=== PATIENT | female | born 1950 | race Caucasian/White ===

== ENCOUNTER 2020-05-14 12:20 | Outpatient (CLI) | payer MEDICARE, OTHER, SELFPAY ==
--- NOTE | ~2020-05-14 | XR_ITS ---
EXAMINATION: XR lumbar spine 2-3V DATE: 05/14/2020 12:57 INDICATION: Low back pain. TECHNIQUE: 3 views of lumbar spine were obtained. COMPARISON: Lumbar spine radiographs 01/17/2006 FINDINGS: There is 7 degrees levocurvature of lumbar spine. There is 3 mm retrolisthesis of L3 on L4 and 3 mm anterolisthesis of L4 on L5. Vertebral body heights are normal. There is mildly decreased di sc height at L1-L2 and severely decreased disc height from L2-L3 through L4-L5. There is multilevel s evere facet joint osteoarthritis. IMPRESSION: 1. Severe lumbar spondylosis, worsened from 01/17/2006. Reviewed, dictated and finalized at location A.
== END 2020-05-14 12:21 | disposition home or self-care (01) ==
PROVIDERS: PCP Family Medicine; Visit Provider Physician Assistant
DX: M54.9 Dorsalgia, unspecified (principal); M47.816 Spondylosis without myelopathy or radiculopathy, lumbar region
CPT/HCPCS: 72100

== ENCOUNTER 2020-08-02 08:44 | Outpatient (CLI) | payer MEDICARE, OTHER, SELFPAY ==
--- NOTE | ~2020-08-02 | MM_ITS ---
EXAMINATION: MM screening [facility] BI w franca HISTORY: Screening TECHNIQUE: Craniocaudal and mediolateral oblique 3-D tomosynthesis images were obtained and synthetic 2-D images were generated. CAD analysis was submitted and interpreted. COMPARISON: Comparison to multiple prior studies sequentially, with oldest reviewed study dated 05/13. BREAST PARENCHYMAL COMPOSITION: There are scattered areas of fibroglandular density. FINDINGS: There is a new cluster of calcifications in the upper outer quadrant of the left breast. Th e right breast is stable without evidence for malignancy. IMPRESSION: 1. Cluster of nonspecific upper outer quadrant of the left breast. 2. Magnification views are recommended. BI-RADS Category 0: Incomplete: Needs additional imaging evaluation. Reviewed, dictated and finalized at location A. SHAPER HAND
== END 2020-08-02 08:45 | disposition home or self-care (01) ==
LOC: ANHIMG 08:46
PROVIDERS: PCP Family Medicine; Visit Provider Family Medicine
DX: Z12.31 Encounter for screening mammogram for malignant neoplasm of breast (principal); R92.8 Other abnormal and inconclusive findings on diagnostic imaging of breast
CPT/HCPCS: 77063; 77067

== ENCOUNTER 2020-08-05 10:35 | Outpatient (CLI) | payer MEDICARE, OTHER, SELFPAY ==
--- NOTE | ~2020-08-05 | XR_ITS ---
XR chest 2V DATE: 08/05/2020 11:01 INDICATION: Cough. Hypertension. TECHNIQUE: PA and lateral views COMPARISON: 03/19/2019 PA and lateral chest FINDINGS: Normal heart size. Mild aortic unfolding. No hilar or mediastinal enlargement. No pulmonary infiltrate or consolidation, pleural effusion or pulmonary vascular congestion or pneumo thorax. There is mild dextro scoliosis of the thoracic spine. Osteopenia. IMPRESSION: No active cardiopulmonary disease Reviewed, dictated and finalized at location A. BERRY SORTER
== END 2020-08-05 10:36 | disposition home or self-care (01) ==
PROVIDERS: PCP Family Medicine; Visit Provider Family Medicine
DX: R05 Cough (principal); I10 Essential (primary) hypertension
CPT/HCPCS: 71046

== ENCOUNTER 2020-09-06 11:57 | Outpatient (CLI) | payer MEDICARE, OTHER, SELFPAY ==
--- NOTE | ~2020-09-06 | MM_ITS ---
EXAMINATION: MM diagnostic mammo unilat LT HISTORY: Follow-up left breast calcifications TECHNIQUE: Additional 3-D tomosynthesis images of the left breast were performed and synthetic 2-D im ages were generated. CAD analysis was submitted and interpreted. COMPARISON: Comparison to multiple prior studies sequentially, with oldest reviewed study dated 05/26. BREAST PARENCHYMAL COMPOSITION: Breast composed of scattered areas of fibroglandular density. FINDINGS: There is a cluster of indeterminate calcifications in the upper outer quadrant of the left breast. There are no suspicious masses or architectural distortion. IMPRESSION: 1. Clustered indeterminate left breast calcifications, upper outer quadrant. 2. Stereotactic left breast biopsy recommended. BI-RADS category 4, suspicious findings. Reviewed, dictated and finalized at location A. RONMENTAL SYSTEMS COORDINATOR
== END 2020-09-06 11:58 | disposition home or self-care (01) ==
LOC: ANHIMG 11:58
PROVIDERS: PCP Family Medicine; Visit Provider Family Medicine
DX: R92.8 Other abnormal and inconclusive findings on diagnostic imaging of breast (principal)
CPT/HCPCS: 77065

== ENCOUNTER 2020-09-14 11:15 | Outpatient (NON) | payer MEDICARE, OTHER, SELFPAY ==
[2020-09-14 22:34] LABS: SARS-CoV-2 RNA PCR Negative
== END 2020-09-14 11:16 ==
LOC: ANHCOVIDDT 11:16
PROVIDERS: PCP Family Medicine; Visit Provider Physician Assistant
DX: R05 Cough (principal); Z20.822 Contact with and (suspected) exposure to COVID-19
CPT/HCPCS: C9803; U0003; U0005

== ENCOUNTER 2020-09-21 09:59 | Outpatient (CLI) | payer MEDICARE, OTHER, SELFPAY ==
--- NOTE | ~2020-09-21 | MM_ITS ---
EXAMINATION: MM stereotactic specimen LT, MM post biopsy diagnostic LT, MM stereotactic bx LT DATE: Kaleb Warner M.D. INDICATION: Abnormal mammogram with calcifications in the left breast. Stereotactic core biopsy is r equested evaluate for malignancy.] TECHNIQUE AND FINDINGS: The risks and potential benefits of the procedure were discussed with the patient and written informe d consent was obtained. The patient was placed in the prone position clustered at the table with the left breast in lateral compression, and the area of interest was localized and targeted utilizing di gital imaging with stereotaxis. After sterile preparation of the skin, 1% lidocaine was utilized for local anesthesia at the skin pun cture site and 1% lidocaine with epinephrine was utilized for deeper local anesthesia/is about the bi opsy site. A 9G [employer] vacuum assisted biopsy needle was advanced to the level of the calcification o f interest from a lateral approach utilizing stereotactic guidance and a total of 6 tissue core biops ies were obtained. A specimen radiograph demonstrates that the calcifications of interest are included within the tissue cores. A tissue marker clip was then placed at the biopsy site. The needle was removed and hemosta sis was achieved. The patient tolerated the procedure well and there is no evidence of significant i mmediate complication. The patient was given verbal as well as written postprocedural instructions p rior to discharge from the department. Tissue cores were submitted to surgical pathology for histolo gic analysis. A 2-view left unilateral digital mammogram was obtained post procedure and this demonstrates that the tissue marker clip is in expected position. IMPRESSION: 1. Successful stereotactic biopsy of calcifications in the upper outer quadrant of the left breast, followed by tissue marker clip placement. Please refer to pathology report for histologic analysis. Reviewed, dictated and finalized at location A. TH INSURANCE ASSESSOR IMPRESSION: 1. Successful stereotactic biopsy of calcifications in the upper outer quadran t of the left breast, followed by tissue marker clip placement. Please refer t o pathology report for histologic analysis. IMPRESSION: 1. Successful stereotactic biopsy of calcifications in the upper outer quadran t of the left breast, followed by tissue marker clip placement. Please refer t o pathology report for histologic analysis.
== END 2020-09-21 10:00 | disposition home or self-care (01) ==
PROVIDERS: Family Provider Family Medicine; PCP Family Medicine; Visit Provider Surgery
DX: R92.8 Other abnormal and inconclusive findings on diagnostic imaging of breast (principal); C50.412 Malignant neoplasm of upper-outer quadrant of left female breast
CPT/HCPCS: 19081; 77065; 88305; 88342; A4648

== ENCOUNTER → 2020-10-16 06:32 | Outpatient (CLI) | payer MEDICARE, OTHER, SELFPAY ==
[2020-10-16 19:10] LABS: SARS-CoV-2 RNA PCR Negative
== END ==
PROVIDERS: PCP Family Medicine; Visit Provider Surgery
DX: Z01.812 Encounter for preprocedural laboratory examination (principal); Z20.822 Contact with and (suspected) exposure to COVID-19
CPT/HCPCS: C9803; U0003; U0005

== ENCOUNTER 2020-10-16 09:50 | Outpatient (CLI) | payer MEDICARE, OTHER, SELFPAY ==
--- NOTE | 2020-10-16 10:29 | ECG_ITS ---
Measurements Intervals [place] Rate: 58 P: 25 ND: 187 QRS: -7 QRSD: 92 T: 18 QT: 436 QTc: 430 Interpretive Statements SINUS BRADYCARDIA ATRIAL PREMATURE COMPLEXES DELAYED PRECORDIAL R/S TRANSITION BASELINE ARTIFACT- V6 BORDERLINE ECG Electronically Signed On 10-16-2020 14:43:25 LOCAL HAZMAT DRIVER by Dalton Turner D.O.
== END 2020-10-16 09:51 | disposition home or self-care (01) ==
PROVIDERS: PCP Family Medicine; Visit Provider Surgery
DX: Z01.818 Encounter for other preprocedural examination (principal); D05.12 Intraductal carcinoma in situ of left breast; I10 Essential (primary) hypertension; R00.1 Bradycardia, unspecified
CPT/HCPCS: 36415; 86850; 86900; 86901; 93005; C9803; U0003; U0005

== ENCOUNTER 2020-10-20 00:44 | Day surgery (SDC) | payer MEDICARE, OTHER, SELFPAY ==
[2020-10-14 08:48] VITALS: BMI 29.6
--- NOTE | 2020-10-19 11:03 | WPDANESEPPF ---
Anes - Initial Pre Proc Eval Procedure: Operation Date: 10/20/20 09:00 Proposed Procedures p Left Simple Mastectomy With [place] Lymph Node Injection And Biopsy - Pierre Haji DO Date/Time: 10/19/20 11:03 Surgeon: Pierre Haji DO Pre Op Diagnosis: left breast DCIS Patient Data Age: 70 Gender: F Height: 1.61 m Weight: 77.15 kg Allergies Allergy/AdvReac Type Severity Reaction Status Date / Time Penicillins Allergy Unknown SWELLING Verified 10/20/20 07:26 AND ITCHING Sulfa (Sulfonamide Allergy Unknown Unknown Verified 10/20/20 07:26 Antibiotics) Home Medications Medication Instructions Recorded Confirmed Type fluticasone propionate 50 2 spray NASAL DAILY #9.9 ml 04/08/20 10/20/20 Rx mcg/actuation nasal spray,suspension aspirin 81 mg tablet,delayed 81 mg PO QPM 05/12/20 10/20/20 History release ezetimibe 10 mg-simvastatin 40 mg 1 tablet PO QPM 05/12/20 10/20/20 History tablet fexofenadine 180 mg tablet 180 mg PO DAILY 05/12/20 10/20/20 History metoprolol tartrate 50 mg tablet 50 mg PO Q12H 05/12/20 10/20/20 History cholecalciferol (vitamin D3) 100 100 mcg PO DAILY 09/16/20 10/20/20 History mcg (4,000 unit) capsule levothyroxine 125 mcg tablet 125 mcg PO DAILY tablet 09/16/20 10/20/20 History zinc 50 mg tablet 50 mg PO DAILY 09/16/20 10/20/20 History omeprazole 20 mg capsule,delayed 20 mg PO DAILY #180 cap 10/11/20 10/20/20 Rx release Lactobacillus acidophilus 10,000 mmu cells PO QPM 10/14/20 10/20/20 History [Probiotic] calcium citrate-vitamin D3 1 tablet PO BID 10/14/20 10/20/20 History [Citracal plus D] trazodone 50 mg PO HS 10/14/20 10/20/20 History Patient hx anesthesia problems: none Family hx anesthesia problems: none PMFSH Past Medical History Medical History (Updated 10/19/20 @ 11:04 by Driss Jerez DO) Breast cancer Colon polyp Coronary arteriosclerosis Discoid lupus Hiatal hernia HLD (hyperlipidemia) Hypertension Hypothyroidism Normal colonoscopy (~2014) JAYSON (obstructive sleep apnea) CPAP Osteopenia Prediabetes Surgical History Surgical History H/O: hysterectomy History of back surgery History of cardiac cath History of excision of mass benign tumor, groin History of hemorrhoidectomy History of tonsillectomy History of tubal ligation Family History Family History Father , age 65 Cancer Mother , age 59 Carcinoma of colon Grandparent Carcinoma of colon Cerebrovascular accident Acute myocardial infarction Sibling Acute myocardial infarction Other Diabetes mellitus Family history of coronary artery disease Family history of malignant neoplasm Hypertension Social History Social History Smoking status: Never smoker Second hand tobacco smoke exposure: No Alcohol intake: current Drinks per week: 3 Living arrangements: with family Spiritual care concerns: No Anes - Eval Final PreProcedure Day of Procedure 10/19/20 11:03 Patient weight: overweight Heart: regular rate and rhythm Lungs: clear to auscultation and normal air movement Airway: Mallampati scale class II Neurological: alert and oriented Last oral intake: >/= 8 hours ASA classification: III Emergent: no Anesthetic plan: proceed Anesthesia type and monitoring: general ETT and standard monitoring Informed Consent: The patient's anesthetic plan and its attendant risks and benefits were discussed with the patient/family/POA. Questions were solicited and answers provided to the satisfaction of the patient/family/POA.
[2020-10-20] VITALS (12 sets, daily range): BP systolic 114–155; BP diastolic 61–97; PULSE 56–86; RESP 10–20; TEMP 36.3–37.1; O2SAT 96–100; BMI 30.4
--- NOTE | ~2020-10-20 | NM_ITS ---
EXAMINATION: NM sentinel node inject only INDICATION: Left breast cancer TECHNIQUE: 1.001 mCi Tc 99m Lymphoseek were injected in 4 aliquots in the upper outer quadrant of the breast near the areola. No images were obtained. IMPRESSION: 1. Status post left breast sentinel lymph node radiopharmaceutical injection. Please refer to procedu re note for full details. Reviewed, dictated and finalized at location A. OMER SUPPORT MANAGER IMPRESSION: 1. Status post left breast sentinel lymph node radiopharmaceutical injection. P lease refer to procedure note for full details.
[2020-10-20] MEDS: LACTATED RINGERS 1,000 ML 30 ML IV CONT ×2 (08:49→11:50)
--- NOTE | 2020-10-20 09:05 | PM.IMHP ---
H&P: HPI History of Present Illness Date/Time: 10/20/20 09:05 Chief Complaint: left breast DCIS Narrative: Randa Chamberlain is a 70 year old female who presents for left mastectomy. She was recently found to have DCIS on a stereotactic biopsy. She initially chose to proceed wit lumpectomy, but now has decided she wants to proceed with mastectomy. Review of Systems Review of Systems: All systems reviewed & are unremarkable except as noted in HPI and below Constitutional: Constitutional: Denies chills, Denies fever(s), Denies headache(s) and Denies weight loss Eyes: Eyes: Denies change in vision ENT: Denies dizziness, Denies headache(s), Denies neck mass and Denies throat swelling Cardiovascular: Cardiovascular: Denies chest pain, Denies lightheadedness and Denies dyspnea Respiratory: Respiratory: Denies cough, Denies dyspnea and Denies wheezing Gastrointestinal: Gastrointestinal: Denies abdominal pain, Denies change in bowel habits, Denies nausea and Denies vomiting Genitourinary: Genitourinary: Denies hematuria and Denies dysuria Musculoskeletal: Musculoskeletal: Reports as per HPI Integumentary/Breasts: Skin/Breast: Reports as per HPI Neurologic: Denies dizziness and Denies headache(s) Allergic/Immunologic: Allergic/Immunologic: Denies throat swelling and Denies wheezing PMFSH Past Medical History Medical History Breast cancer Colon polyp Coronary arteriosclerosis Discoid lupus Hiatal hernia HLD (hyperlipidemia) Hypertension Hypothyroidism Normal colonoscopy (~2014) JAYSON (obstructive sleep apnea) CPAP Osteopenia Prediabetes Surgical History Surgical History H/O: hysterectomy History of back surgery History of cardiac cath History of excision of mass benign tumor, groin History of hemorrhoidectomy History of tonsillectomy History of tubal ligation Family History Family History Father , age 65 Cancer Mother , age 59 Carcinoma of colon Grandparent Carcinoma of colon Cerebrovascular accident Acute myocardial infarction Sibling Acute myocardial infarction Other Diabetes mellitus Family history of coronary artery disease Family history of malignant neoplasm Hypertension Social History Social History Smoking status: Never smoker Second hand tobacco smoke exposure: No Alcohol intake: current Drinks per week: 3 Living arrangements: with family Spiritual care concerns: No Meds Home Medications and Allergies Home Medications Medication Instructions Recorded Confirmed Type fluticasone propionate 50 2 spray NASAL DAILY #9.9 ml 04/08/20 10/20/20 Rx mcg/actuation nasal spray,suspension aspirin 81 mg tablet,delayed 81 mg PO QPM 05/12/20 10/20/20 History release ezetimibe 10 mg-simvastatin 40 mg 1 tablet PO QPM 05/12/20 10/20/20 History tablet fexofenadine 180 mg tablet 180 mg PO DAILY 05/12/20 10/20/20 History metoprolol tartrate 50 mg tablet 50 mg PO Q12H 05/12/20 10/20/20 History cholecalciferol (vitamin D3) 100 100 mcg PO DAILY 09/16/20 10/20/20 History mcg (4,000 unit) capsule levothyroxine 125 mcg tablet 125 mcg PO DAILY tablet 09/16/20 10/20/20 History zinc 50 mg tablet 50 mg PO DAILY 09/16/20 10/20/20 History omeprazole 20 mg capsule,delayed 20 mg PO DAILY #180 cap 10/11/20 10/20/20 Rx release Lactobacillus acidophilus 10,000 mmu cells PO QPM 10/14/20 10/20/20 History [Probiotic] calcium citrate-vitamin D3 1 tablet PO BID 10/14/20 10/20/20 History [Citracal plus D] trazodone 50 mg PO HS 10/14/20 10/20/20 History Allergies Allergy/AdvReac Type Severity Reaction Status Date / Time Penicillins Allergy Unknown SWELLING Verified 10/20/20 07:26 AND ITCHING Sulfa (Sulfonamide All
--- NOTE | 2020-10-20 09:09 | WPDHPUPDATE1 ---
History and Physical Update Update Date/Time: 10/20/20 09:09 History and Physical has been reviewed, including an updated exam of the patient. There are NO changes in the patient's condition. Risks, benefits, and alternatives have been discussed and questions answered. Patient agrees to proceed with procedure.
[2020-10-20] MEDS: CLINDAMYCIN 900 MG/D5W 50 ML 900 MG/50 ML PIGGYBACK 50 MG IVPB (09:37)
[2020-10-20] MEDS: ISOSULFAN BLUE 1% INJ 5 ML VIAL 4 ML SUB-Q (09:50)
--- NOTE | 2020-10-20 10:24 | SUR.OPER ---
sentinal lymph node #1 and #2 to pathology fresh/ #1 out 1017 per [facility] PCT and received per Karolyn in Pathology. #2 out 1023 per [facility] PCT and received per Karolyn in Pathology.
--- NOTE | 2020-10-20 10:53 | SUR.OPER ---
left breast out of [place] 1051 per [facility] PCT sent fresh received in pathology per Karolyn 1054
--- NOTE | 2020-10-20 11:44 | PM.PROC ---
Procedure Note - Detailed Date of procedure: 10/20/20 Pre-op diagnosis: left breast DCIS Post-op diagnosis: same Procedure performed: 1. Left simple mastectomy 2. Left axillary sentinel lymph node biopsy Description of procedure: procedure as well as risks, benefits, and alternatives were discussed with the patient. Written consent was obtained and placed in chart prior to procedure. Patient was brought back to surgical suite. She was placed supine on operating table. Time-out was done to confirm patient and procedure. She was then intubated by the Anesthesia Department. Isosulfan blue was infiltrated locally around the nipple areola complex. The left breast was massaged for several minutes. The left breast and axillary area was then prepped and draped in sterile fashion using chlorhexidine prep. 0.5% bupivacaine with epinephrine was infiltrated locally around the left breast. The elliptical incision angled towards the left axilla was carefully marked out along with the margins of the breast tissue around the skin. I then used the gamma probe to identify the axillary lymph nodes. I made the axillary incision along the marked area using a 10 blade scalpel. I then carefully dissected into the axillary contents using electrocautery and blunt dissection with a hemostat. I identified 2 sentinel lymph nodes. The 1st lymph node was carefully isolated and removed using electrocautery. There was still some residual uptake with the gamma probe after removing the 1st lymph node, therefore the 2nd lymph node was removed in a similar fashion. After removing both of these lymph nodes, there was no measurable uptake using the gamma probe within the axillary contents remaining. The incision was then carried out along the markings using 10 blade scalpel. Electrocautery was used for hemostasis. The superior skin flap was initially created using careful electrocautery. This was carried out all the way up to the level of the 2nd rib until the pectoral fascia was encountered. I then carried out the inferior skin flap in a similar fashion using electrocautery down to the inframammary fold and to the level of the pectoral fascia. I then continued along these margins medially until I reached the lateral edge of the sternum. He also carried out this incision laterally to the axillary tail of the breast tissue. The breast tissue was then carefully dissected off of the pectoral muscle using electrocautery. The perforating vessels were ligated along the way using electrocautery. The breast tissue was completely excised from the left chest wall. The breast was then marked for orientation using a short suture superior and long suture lateral. This was then sent to the lab for pathology. The wound bed was then inspected and irrigated with sterile saline. Hemostasis was achieved with electrocautery. The 15 round Artur drain was then placed through a counter incision in the left lateral chest and the drain was secured in place using a 3 0 nylon drain stitch. The deep dermis was then reapproximated using 3 0 Vicryl simple interrupted sutures. The skin was then approximated using a 4 Monocryl running subcuticular suture. Exofin glue was then applied on top. Telfa gauze, fluff gauze, and a surgical bra were then applied. The patient was then awakened from anesthesia, extubated, and transferred to recovery. Anesthesia: GLMA and local ( 0.5% bupivacaine with epinephrine) Surgeon: Pierre Haji DO Estimated blood loss (mL): 50 Drains: Yes ( 15 round Artur) Pathology: yes ( left breast marked with short suture superior and long suture lateral, sentinel lymph node x2) Complications: No immediate complications Condition: stable Disposition: observation Findings: This is a 70-year-old woman who presented with a recent finding of left breast DCIS. She had an abnormal mammogram and then subsequently underwent stereotactic left breast biopsy. The pathology showed evidence of
--- NOTE | 2020-10-20 12:24 | SUR.PHASEI ---
[id number] sbar faxed floor notified
[2020-10-20] MEDS: fentaNYL CITRATE INJ (*CRX) 100 MCG/2 ML VIAL 25 MCG IV PUSH ×2 (12:46→12:49)
--- NOTE | 2020-10-20 13:20 | PC.NURSE ---
Patient to room 341 via hospital stretcher. Patient oriented to room and policies. Belongings with patient. Visitor in room with patient at this time.
[2020-10-20] MEDS: ASPIRIN 81 MG ENTERIC TABLET PO (17:16)
[2020-10-20] MEDS: LACTATED RINGERS 1,000 ML 100 ML IV CONT (17:16)
[2020-10-20] MEDS: traZODone HCL 50 MG TABLET PO (20:02)
[2020-10-20] MEDS: EZETIMIBE 10 MG TABLET PO (20:03)
[2020-10-20] MEDS: HYDROcodone/acetaminophen (*CRX) 7.5-325 MG TABLET 1 TAB PO (20:03)
[2020-10-20] MEDS: METOPROLOL TARTRATE 50 MG TAB PO (20:03)
[2020-10-20] MEDS: SIMVASTATIN 20 MG TABLET 40 MG PO (20:03)
[2020-10-21] MEDS: LEVOTHYROXINE SODIUM 125 MCG TABLET PO (05:38)
[2020-10-21 06:27] VITALS: BP 131/78; PULSE 55; RESP 16; TEMP 36.6; O2SAT 100
[2020-10-21 08:00] VITALS: PULSE 55; RESP 16; O2SAT 100
[2020-10-21 08:04] VITALS: PULSE 55
[2020-10-21] MEDS: PANTOPRAZOLE 40 MG TABLET PO (08:04)
[2020-10-21] MEDS: FLUTICASONE PROPIONATE 0.05% NA SPR 16 GM BTL (*BKC) 2 SPRAY NASAL (08:04)
[2020-10-21] MEDS: METOPROLOL TARTRATE 50 MG TAB PO (08:04)
[2020-10-21] MEDS: LORATADINE 10 MG TABLET PO (08:04)
--- NOTE | 2020-10-21 09:52 | PM.DS ---
DS: Admitting Diagnosis Admitting Diagnosis Admitting Diagnosis: Left breast DCIS DS: Discharge Diagnosis Discharge Diagnosis (1) Ductal carcinoma in situ (DCIS) of left breast: Code(s): D05.12 - Intraductal carcinoma in situ of left breast Status: Acute DS: Summary Hospital Course Reason for hospitalization: Postop recovery after left mastectomy with SLN biopsy Hospital Course: This is a 70-year-old woman who presented for left mastectomy. She had a recent abnormal mammogram with microcalcifications and subsequent stereotactic biopsy showed evidence of DCIS grade 2 with comedonecrosis. After thorough discussions about treatment options, patient elected to proceed with mastectomy. On 10/20/2020 she underwent left simple mastectomy with sentinel lymph node biopsy. Surgery was uncomplicated and she was placed on the hospital for outpatient extended recovery. Her pain was controlled postoperatively and the drain was carefully monitored. On postop day 1 she was doing well and pain was controlled. She had minimal serosanguineous output from the drain and her incision had no bleeding or disruption. She was discharged on postop day 1. Status at Discharge Functional status at discharge: independent ambulation Overall status at discharge: patient is progressing back to baseline Time Spent with Patient Time attestation: Total time spent providing and/or coordinating discharge services: Time spent: Less than 30 minutes Exam Chest: Other: Dressing dry. REDD drain with minimal serosanguineous output. DS: Data Data Completed and Pending Pending studies at discharge: Pending at discharge 10/20/20 10:15 Surgical [PTH] Routine Surgical [PTH] Routine Surgical [PTH] Routine Discharge Plan Discharge Patient Disposition: Home, Self-Care Discharge Instructions: Discharge Instruction Sheet for [place] Node Biopsy (Possible Axillary Node Dissection) Patients [facility] [address] [address] [address] [place] [address] 1.) Keep wound clean and dry. If drains are present, will need to sponge bathe or shower facing away from shower head until drain(s) are removed. This drain will be removed during your follow up visit. 2.) No vigorous activity or carrying with affected arm. May use arm to comb hair, eat, write, etc. 3.) Do not apply creams or ointments unless directed to do so by your surgeon. 4.) Ambulate (walk) for exercise at least 3 times per day. 5.) Contact your surgeon?s office if you have excessive and persistent pain, swelling, bleeding, or drainage through the dressing, redness or red streaks around the wound, heat or warmth at the site of the incision, or fever of more then 101 degrees. 6.) Resume all home medications. Patient to be given pain medication prescription prior to discharge if needed. 7.) Please be aware that the surgeon will likely inject a ?blue dye? to identify the sentinel lymph node during the procedure. This dye may turn your urine blue or green for 24 hours and skin a blue color that will fade over a period of time (several weeks). This is expected and of no concern. 8.) Please allow 5 business days for biopsy results. Dr. Haji?s office will call with results. 9.) Nutrition: Start out by drinking fluids and increase your diet as tolerated. If you experience nausea, try dry toast and crackers and 7-UP. If nausea or vomiting persists, contact your surgeon?s office. 10.) No alcohol while taking your narcotic pain medication. No driving for 24 hours or if you are taking your narcotic pain medication. Rev. 10/17 Patient Instructions: Mastectomy (DC) Follow-up/Referrals: Pierre Haji, [Physician] - (Call office on Sunday to report drain output. Will schedule a f/u appt once drainage has decreased to a safe level for removal.) Discharge Medications: New
--- NOTE | 2020-10-21 12:07 | WPDANESPN ---
Anes - Prog Note Post-Op Date/Time: 10/21/20 12:07 Cardiovascular status: normal Respiratory status: normal Airway patency: baseline Mental status: baseline Post-Op hydration status: normal Vital Signs: Last Vital Signs Temp 36.6 C 10/21/20 06:27 Pulse 55 L 10/21/20 08:04 Resp 16 10/21/20 06:27 BP 131/78 10/21/20 06:27 Pulse Ox 100 10/21/20 06:27 Pain Score (VAS): 0/10. Patient resting in bed at time of assessment, appears comfortable. Support person at bedside. I/O: Intake & Output 10/20/20 10/21/20 10/21/20 23:59 07:59 15:59 Intake Total 960 1000 240 Output Total 965 220 800 Balance -5 780 -560 Post-procedural complaints: none Patient Feedback: Patient satisfied with anesthetic care.
[2020-10-21] MEDS: HYDROcodone/acetaminophen (*CRX) 5-325 MG TABLET 1 TAB PO (12:11)
== END 2020-10-21 13:00 | disposition home or self-care (01) ==
LOC: ANHSURGERY 06:54 → ANH3MED 13:27
PROVIDERS: PCP Family Medicine; Visit Provider Surgery
PROC: (CPT 19303; principal; 2020-10-20 09:00)
DX: D05.12 Intraductal carcinoma in situ of left breast (principal); I25.10 Atherosclerotic heart disease of native coronary artery without angina pectoris; I10 Essential (primary) hypertension; E78.5 Hyperlipidemia, unspecified; E03.9 Hypothyroidism, unspecified; R73.03 Prediabetes; G47.33 Obstructive sleep apnea (adult) (pediatric); L93.0 Discoid lupus erythematosus
CPT/HCPCS: 19303; 38525; 38792; 88305; 88307; A9270; A9520; J1100; J2405; J2704; J3010; J7120

== ENCOUNTER → 2020-11-24 06:46 | Outpatient (CLI) | payer MEDICARE, OTHER, SELFPAY ==
[2020-11-24 16:23] LABS: SARS-CoV-2 RNA PCR Negative
== END ==
PROVIDERS: PCP Family Medicine; Visit Provider Family Medicine
DX: Z20.822 Contact with and (suspected) exposure to COVID-19 (principal)
CPT/HCPCS: C9803; U0003; U0005

== ENCOUNTER 2021-03-04 15:09 | Outpatient (CLI) | payer MEDICARE, OTHER, SELFPAY ==
--- NOTE | ~2021-03-04 | XR_ITS ---
XR hip RT min 3V w AP pelvis 03/04/2021 15:35 Indication: Right hip pain Procedure: AP pelvis and 2 views right hip Comparison: No prior studies for comparison. Findings: There is moderate osteoarthritis of the right hip. Mild osteoarthritis of the left hip. Low er lumbar spondylosis partially visualized. Sacral foramen are symmetric. Pelvic rings are intact. Impression: 1: Bilateral osteoarthritis of the hips, right greater than left. Reviewed, dictated and finalized at location A. Impression: 1: Bilateral osteoarthritis of the hips, right greater than left.
== END 2021-03-04 15:10 | disposition home or self-care (01) ==
LOC: ANHIMG 15:16
PROVIDERS: PCP Family Medicine; Visit Provider Physician Assistant
DX: M16.0 Bilateral primary osteoarthritis of hip (principal)
CPT/HCPCS: 73502

== ENCOUNTER 2021-03-29 08:07 | Outpatient (CLI) | payer MEDICARE, OTHER, SELFPAY ==
--- NOTE | ~2021-03-29 | DEXA_ITS ---
Bone Density Report Name: Randa Chamberlain Age: 70 Sex: Female Ethnicity: White Date of : 1950 Indication: monitoring treatment; height loss; cancer; hysterectomy; postmenopausal Referring Provider: Malik Devries Study: Bone densitometry was performed. Exam Date: March 29, 2021 Accession number: [id number] Bone Density: Region BMD T-score Z-score Classification AP Spine (L1, L2) 1.204 2.0 4.1 Normal Femoral Neck (Left) 0.695 -1.4 0.5 Osteopenia Total Hip (Left) 0.918 -0.2 1.4 Normal Total Hip Bilateral Avg 0.930 -0.1 1.5 Normal Femoral Neck (Right) 0.740 -1.0 0.9 Normal Total Hip (Right) 0.941 0.0 1.6 Normal World Health Organization criteria for BMD impression classify patients as: Normal (T-score at or above -1.0), Osteopenia (T-score between -1.0 and -2.5), or Osteoporosis (T-score at or below -2.5). 10-year Fracture Risk: FRAX not reported because: Treated for osteoporosis Previous Exams: Region Exam Age BMD T-score BMD Change BMD Change Date g/cm2 vs Baseline vs Previous Total Hip(Left) 03/29/2021 70 0.918 -0.2 0.040(4.5%)* 0.040(4.5%)* 05/26/2014 64 0.878 -0.5 Total Hip(Right) 03/29/2021 70 0.941 0.0 0.010(1.1%) 0.010(1.1%) 05/26/2014 64 0.930 -0.1 *Denotes significance at 95% confidence level, LSC for Total Hip = 0.027 g/cm2 Clinical Information Provided by Patient: Is being treated for osteoporosis Has used the following medications: Boniva (i.e. ibandronate), HRT (i.e. estrogen/hormone therapy), Vitamin D Has the following medical conditions: Cancer, Hysterectomy Patient maximum height was 64 Menopause Age: 56 No regular weight bearing exercise Does not regularly consume dairy products Drinks caffeinated beverages Onset of menses at age 15 Number of children 2 Impression: The patient has low bone mass, based on the Left Femoral Neck T-score. No significant bone loss was observed. Discussion: PATIENT UNDER TREATMENT WITH NO SIGNIFICANT BMD LOSS SINCE LAST EXAM. In an untreated patient, BMD typically declines with age. A lack of decline or gain is usually a sign that treatment is efficacious and fracture risk is reduced. It is important to ask patients whether they are taking their medications and to encourage continued and appropriate compliance with their osteoporosis therapies to reduce fracture risk. It is also important to review their risk factors and encourage appropriate calcium and vitamin D intakes, exercise, fall prevention and other lifesty
== END 2021-03-29 08:08 | disposition home or self-care (01) ==
PROVIDERS: PCP Family Medicine; Visit Provider Internal Medicine Hematology & Oncology
DX: M81.0 Age-related osteoporosis without current pathological fracture (principal); M85.852 Other specified disorders of bone density and structure, left thigh
CPT/HCPCS: 77080

== ENCOUNTER 2021-03-31 09:43 | Outpatient (CLI) | payer MEDICARE, OTHER, SELFPAY ==
[2021-03-31 10:01] LABS: Basophils Percent Auto 0.4 % (0.2-1.2); Eosinophils Absolute Auto 0.3 K/mm3 (0-0.3); Eosinophils Percent Auto 5.3 % (0-4.4); Hematocrit 38.5 % (37.0-47.0); Hemoglobin 12.3 g/dL (12.0-15.0); Immature Granulocyte Absolute 0.02 K/mm3 (0.00-0.031); Immature Granulocyte Percent A 0.4 % (0-0.5); Lymphocytes Absolute Auto 1.19 K/mm3 (0.9-3.2); Lymphocytes Percent Auto 22.5 % (18.3-44.2); Mean Corpuscular HGB Conc 31.9 g/dl (32-36); Mean Corpuscular Hemoglobin 31.9 pg (26-34); Mean Platelet Volume 9.6 fl (7.4-10.4); Monocytes Absolute Auto 0.5 K/mm3 (0.1-0.6); Monocytes Percent Auto 9.1 % (2.6-8.5); Neutrophils Absolute Auto 3.3 K/mm3 (1.3-6.7); Neutrophils Percent Auto 62.3 % (45.5-73.1); Platelet Count Result 214 k/mm3 (150-375); Red Blood Count 3.85 M/mm3 (4.2-5.4); Red Cell Distribution Width 12.4 % (11.5-14.5); White Blood Count 5.3 K/mm3 (4.5-10.0)
[2021-03-31 10:06] LABS: Blood Urea Nitrogen 17 mg/dL (8-26); Carbon Dioxide 25 mmol/L (22-30); Chloride 104 mmol/L (98-109); Estimated Glomerular Filt Rate > 60; Glucose 126 mg/dL (70-105); Potassium 3.8 mmol/L (3.5-4.9); Sodium 142 mmol/L (138-146)
[2021-03-31 11:54] LABS: Alanine Aminotransferase 22 U/L (4-35); Albumin Level 4.4 g/dL (3.5-5.1); Alkaline Phosphatase 94 U/L (38-126); Anion Gap 9 mmol/L (8-16); Aspartate Amino Transferase 28 U/L (14-36); Bilirubin,Total 0.2 mg/dL (0.2-1.3); Blood Urea Nitrogen 16 mg/dL (7-17); Calcium 9.6 mg/dL (8.4-10.2); Carbon Dioxide 27 mmol/L (22-30); Chloride 102 mmol/L (98-107); Estimated Glomerular Filt Rate > 60; Glucose 122 mg/dL (65-110); Potassium 3.9 mmol/L (3.4-5.0); Sodium 138 mmol/L (137-145)
== END 2021-03-31 09:44 | disposition home or self-care (01) ==
LOC: ANHLAB 09:45
PROVIDERS: PCP Family Medicine; Visit Provider Internal Medicine Hematology & Oncology
DX: D05.12 Intraductal carcinoma in situ of left breast (principal); M81.0 Age-related osteoporosis without current pathological fracture
CPT/HCPCS: 36415; 80048; 80053; 85025

== ENCOUNTER 2021-05-03 10:01 | Outpatient (CLI) | payer MEDICARE, OTHER, SELFPAY ==
--- NOTE | ~2021-05-03 | MM_ITS ---
EXAMINATION: MM screening janette RT w franca HISTORY: Screening mammogram TECHNIQUE: Craniocaudal and mediolateral oblique 3-D tomosynthesis images were obtained and synthetic 2-D images were generated. CAD analysis was submitted and interpreted. COMPARISON: 08/02/2020, 07/31/2019, 05/07/2018 bilateral digital screening mammogram examinations BREAST PARENCHYMAL COMPOSITION: There are scattered areas of fibroglandular density. FINDINGS: Status post left mastectomy September 2019. Minimal benign calcification of the right breast . There is no evidence of suspicious mass, calcification, or architectural distortion to suggest prateek gnancy in either breast. There has been no suspicious interval change. IMPRESSION: 1. No mammographic evidence of malignancy. 2. Recommend routine screening mammography in one year. BI-RADS Category 2: Benign finding(s). Reviewed, dictated and finalized at location A.
== END 2021-05-03 10:02 | disposition home or self-care (01) ==
LOC: ANHIMG 10:03
PROVIDERS: PCP Family Medicine; Visit Provider Internal Medicine Hematology & Oncology
DX: Z12.31 Encounter for screening mammogram for malignant neoplasm of breast (principal)
CPT/HCPCS: 77063; 77067

== ENCOUNTER 2021-06-30 11:16 | Outpatient (CLI) | payer MEDICARE, OTHER, SELFPAY ==
[2021-06-30 11:36] LABS: Basophils Percent Auto 0.2 % (0.2-1.2); Eosinophils Absolute Auto 0.2 K/mm3 (0-0.3); Eosinophils Percent Auto 3.9 % (0-4.4); Hematocrit 40.4 % (37.0-47.0); Hemoglobin 12.9 g/dL (12.0-15.0); Immature Granulocyte Absolute 0.03 K/mm3 (0.00-0.031); Immature Granulocyte Percent A 0.6 % (0-0.5); Lymphocytes Absolute Auto 1.42 K/mm3 (0.9-3.2); Lymphocytes Percent Auto 26.6 % (18.3-44.2); Mean Corpuscular HGB Conc 31.9 g/dl (32-36); Mean Corpuscular Hemoglobin 32.3 pg (26-34); Mean Corpuscular Volume 101.3 fl (80-100); Mean Platelet Volume 9.6 fl (7.4-10.4); Monocytes Absolute Auto 0.6 K/mm3 (0.1-0.6); Monocytes Percent Auto 11.2 % (2.6-8.5); Neutrophils Absolute Auto 3.1 K/mm3 (1.3-6.7); Neutrophils Percent Auto 57.5 % (45.5-73.1); Platelet Count Result 181 k/mm3 (150-375); Red Blood Count 3.99 M/mm3 (4.2-5.4); White Blood Count 5.3 K/mm3 (4.5-10.0)
[2021-06-30 11:40] LABS: Blood Urea Nitrogen 17 mg/dL (8-26); Carbon Dioxide 25 mmol/L (22-30); Chloride 102 mmol/L (98-109); Estimated Glomerular Filt Rate > 60; Glucose 101 mg/dL (70-105); Potassium 4.3 mmol/L (3.5-4.9); Sodium 142 mmol/L (138-146)
[2021-06-30 12:27] LABS: Alanine Aminotransferase 34 U/L (4-35); Albumin Level 4.6 g/dL (3.5-5.1); Alkaline Phosphatase 95 U/L (38-126); Anion Gap 11 mmol/L (8-16); Aspartate Amino Transferase 35 U/L (14-36); Bilirubin,Total 0.5 mg/dL (0.2-1.3); Blood Urea Nitrogen 17 mg/dL (7-17); Carbon Dioxide 26 mmol/L (22-30); Chloride 104 mmol/L (98-107); Estimated Glomerular Filt Rate > 60; Glucose 99 mg/dL (65-110); Potassium 4.4 mmol/L (3.4-5.0); Sodium 141 mmol/L (137-145)
== END 2021-06-30 11:17 | disposition home or self-care (01) ==
PROVIDERS: PCP Family Medicine; Visit Provider Internal Medicine Hematology & Oncology
DX: M81.0 Age-related osteoporosis without current pathological fracture (principal); D05.12 Intraductal carcinoma in situ of left breast
CPT/HCPCS: 36415; 80048; 80053; 85025

== ENCOUNTER 2021-08-08 08:41 | Outpatient (CLI) | payer MEDICARE, OTHER, SELFPAY ==
[2021-08-08 10:04] LABS: Alanine Aminotransferase 39 U/L (4-35); Albumin Level 4.8 g/dL (3.5-5.1); Alkaline Phosphatase 104 U/L (38-126); Anion Gap 12 mmol/L (8-16); Aspartate Amino Transferase 42 U/L (14-36); Bilirubin,Total 0.6 mg/dL (0.2-1.3); Blood Urea Nitrogen 19 mg/dL (7-17); Calcium 9.7 mg/dL (8.4-10.2); Carbon Dioxide 26 mmol/L (22-30); Chloride 103 mmol/L (98-107); Cholesterol 138 mg/dL (0-200); Estimated Glomerular Filt Rate > 60; Glucose 114 mg/dL (65-110); HDL Direct 45 mg/dL; Potassium 4.1 mmol/L (3.4-5.0); Sodium 141 mmol/L (137-145); Triglycerides 112 mg/dL (<150)
[2021-08-08 10:15] LABS: LDL Cholesterol Direct 72 mg/dL
[2021-08-08 10:37] LABS: Vitamin D 25 Hydroxy 75.7 ng/mL
[2021-08-08 10:46] LABS: Hemoglobin A1C 5.6 % (<5.7)
[2021-08-08 11:21] LABS: Free T4 Free Thyroxine Reflex 1.03 ng/dL (0.78-2.19)
[2021-08-08 12:07] LABS: Total Triiodothyronine (T3) 1.56 NG/ML (0.97-1.69)
== END 2021-08-08 08:42 | disposition home or self-care (01) ==
LOC: ANHLAB 08:45
PROVIDERS: PCP Family Medicine; Visit Provider Family Medicine
DX: E55.9 Vitamin D deficiency, unspecified (principal); E03.9 Hypothyroidism, unspecified; E78.2 Mixed hyperlipidemia; R73.9 Hyperglycemia, unspecified
CPT/HCPCS: 36415; 80053; 80061; 82306; 83036; 84439; 84443; 84480

== ENCOUNTER 2021-08-08 09:22 | Outpatient (CLI) | payer MEDICARE, OTHER, SELFPAY ==
--- NOTE | ~2021-08-08 | US_ITS ---
EXAMINATION: US thyroid EXAM DATE: 08/08/2021 10:54 INDICATION: E04.1 - Nontoxic single thyroid nodule. TECHNIQUE: Multiple grayscale and Doppler images of the thyroid were obtained (by a technologist who performed the scan) and subsequently reviewed. Individual nodules and recommendations may be reporte d in accordance with TI-RADS system as designated by the 2017 ACR White Paper TI-RADS committee. Comp tomásson is made to prior examination from 05/07/2018. FINDINGS: The right thyroid lobe measures 3.5 x 1.4 x 1.0 cm, the left thyroid lobe measures 3.7 x 1.2 x 1.1 cm . There is moderately diffusely heterogeneous thyroid echogenicity. Dimensions provided are within no rmal size limits. Expected amount of vascularity. No focal nodule identified within the heterogeneous parenchyma. IMPRESSION: Unremarkable thyroid ultrasound. Reviewed, dictated and finalized at location B. UCT DEVELOPMENT COORDINATOR
--- NOTE | ~2021-08-08 | MR_ITS ---
EXAMINATION: MR abdomen wo/w con DATE: 08/08/2021 10:43 INDICATION: Cyst of pancreas. TECHNIQUE: Magnetic resonance imaging (MRI) of the abdomen was performed without and with 15 mL Multi Mallorie intravenous contrast. Sequences included coronal T2-weighted FS FSE, coronal and axial FS FIEST A, axial T2-weighted FSE, coronal LAVA-flex, axial STIR FSE, axial DWI, axial dual-echo T1-weighted F SPGR, and axial LAVA. Postcontrast sequences included coronal LAVA-flex and a time course of axial LA VA. COMPARISON: CT abdomen 02/25/2005 FINDINGS: There is diffuse hepatic steatosis. There are cysts in the liver measuring up to 6 mm. There is cysti c wall thickening of the gallbladder fundus, consistent with adenomyomatosis. The spleen is normal. T here is a 2.0 cm cystic lesion in the uncinate process of the pancreas. The adrenal glands are normal . There are cysts in the kidneys measuring up to 9.2 cm on the right. There are no dilated loops of b owel. There is a diverticulum of the third portion of the duodenum. There are no pathologically enlar ged lymph nodes. There is no free intraperitoneal fluid. IMPRESSION: 1. 2.0 cm cystic lesion in the uncinate process of the pancreas, new from 02/25/2005. The differential diagnosis includes pseudocyst, intraductal papillary mucinous neoplasm (IPMN), mucinous cystic neopla sm (MCN), serous cystadenoma, and neuroendocrine tumor. Abdomen MRI without and with contrast is clarke mmended in 6 months. 2. Diffuse hepatic steatosis. Reviewed, dictated and finalized at location A. CLE INSPECTOR IMPRESSION: 1. 2.0 cm cystic lesion in the uncinate process of the pancreas, new from 005. The differential diagnosis includes pseudocyst, intraductal papillary muci nous neoplasm (IPMN), mucinous cystic neoplasm (MCN), serous cystadenoma, and n euroendocrine tumor. Abdomen MRI without and with contrast is recommended in 6 months. 2. Diffuse hepatic steatosis.
[2021-08-08 10:12] LABS: Estimated Glomerular Filt Rate > 60
== END 2021-08-08 09:23 | disposition home or self-care (01) ==
LOC: ANHIMG 09:32
PROVIDERS: PCP Family Medicine; Visit Provider Family Medicine
DX: K86.2 Cyst of pancreas (principal); E04.1 Nontoxic single thyroid nodule; K76.0 Fatty (change of) liver, not elsewhere classified
CPT/HCPCS: 36415; 74183; 76536; 80053; 80061; 82306; 83036; 84439; 84443; 84480; A9577

== ENCOUNTER 2021-10-19 10:30 | Outpatient (CLI) | payer MEDICARE, SELFPAY ==
[2021-10-19 10:58] LABS: Basophils Percent Auto 0.4 % (0.2-1.2); Eosinophils Absolute Auto 0.2 K/mm3 (0-0.3); Eosinophils Percent Auto 3.8 % (0-4.4); Hematocrit 42.5 % (37.0-47.0); Hemoglobin 13.4 g/dL (12.0-15.0); Immature Granulocyte Absolute 0.04 K/mm3 (0.00-0.031); Immature Granulocyte Percent A 0.8 % (0-0.5); Lymphocytes Absolute Auto 1.31 K/mm3 (0.9-3.2); Lymphocytes Percent Auto 26.3 % (18.3-44.2); Mean Corpuscular HGB Conc 31.5 g/dl (32-36); Mean Corpuscular Hemoglobin 32.6 pg (26-34); Mean Corpuscular Volume 103.4 fl (80-100); Mean Platelet Volume 9.8 fl (7.4-10.4); Monocytes Absolute Auto 0.5 K/mm3 (0.1-0.6); Monocytes Percent Auto 10.6 % (2.6-8.5); Neutrophils Absolute Auto 2.9 K/mm3 (1.3-6.7); Neutrophils Percent Auto 58.1 % (45.5-73.1); Platelet Count Result 224 k/mm3 (150-375); Red Blood Count 4.11 M/mm3 (4.2-5.4); Red Cell Distribution Width 11.9 % (11.5-14.5)
[2021-10-19 11:01] LABS: Blood Urea Nitrogen 13 mg/dL (8-26); Carbon Dioxide 23 mmol/L (22-30); Chloride 105 mmol/L (98-109); Estimated Glomerular Filt Rate > 60; Glucose 126 mg/dL (70-105); Potassium 4.1 mmol/L (3.5-4.9); Sodium 142 mmol/L (138-146)
[2021-10-19 14:17] LABS: Alanine Aminotransferase 37 U/L (4-35); Albumin Level 4.7 g/dL (3.5-5.1); Alkaline Phosphatase 115 U/L (38-126); Anion Gap 9 mmol/L (8-16); Aspartate Amino Transferase 48 U/L (14-36); Bilirubin,Total 0.4 mg/dL (0.2-1.3); Blood Urea Nitrogen 15 mg/dL (7-17); Calcium 9.2 mg/dL (8.4-10.2); Carbon Dioxide 24 mmol/L (22-30); Chloride 106 mmol/L (98-107); Estimated Glomerular Filt Rate > 60; Glucose 129 mg/dL (65-110); Potassium 4.2 mmol/L (3.4-5.0); Sodium 139 mmol/L (137-145)
== END 2021-10-19 10:31 | disposition home or self-care (01) ==
LOC: ANHLAB 10:40
PROVIDERS: PCP Family Medicine; Visit Provider Internal Medicine Hematology & Oncology
DX: M81.0 Age-related osteoporosis without current pathological fracture (principal)
CPT/HCPCS: 36415; 80053; 85025

== ENCOUNTER 2021-10-26 00:21 | Day surgery (SDC) | payer MEDICARE, SELFPAY ==
[2021-09-01 12:13] VITALS: BMI 29.2
[2021-10-12 13:17] VITALS: BMI 29.2
[2021-10-26 06:40] VITALS: BP 150/72; PULSE 62; RESP 18; TEMP 37; O2SAT 97; BMI 29.7
[2021-10-26] MEDS: LACTATED RINGERS 1,000 ML 150 ML IV CONT (07:00)
--- NOTE | 2021-10-26 07:39 | WPDANESEPPF ---
Anes - Initial Pre Proc Eval Procedure: Operation Date: 10/26/21 08:00 Proposed Procedures p Screening Colonoscopy - Keegan Arnold MD Date/Time: 10/26/21 07:39 Surgeon: Keegan Arnold MD Pre Op Diagnosis: hx of colon polyps Patient Data Age: 71 Gender: F Height: 1.6 m Weight: 76.1 kg Last Vital Signs Temp 98.6 F 10/26/21 06:40 Pulse 62 10/26/21 06:40 Resp 18 10/26/21 06:40 BP 150/72 H 10/26/21 06:40 Pulse Ox 97 10/26/21 06:40 Allergies Allergy/AdvReac Type Severity Reaction Status Date / Time Penicillins Allergy Unknown SWELLING Verified 10/26/21 06:49 AND ITCHING Sulfa (Sulfonamide Allergy Unknown Unknown Verified 10/26/21 06:49 Antibiotics) Home Medications Medication Instructions Recorded Confirmed Type aspirin 81 mg tablet,delayed 81 mg PO QPM 05/12/20 10/26/21 History release ezetimibe 10 mg-simvastatin 40 mg 1 tablet PO QPM 05/12/20 10/26/21 History tablet fexofenadine 180 mg tablet 180 mg PO DAILY 05/12/20 10/26/21 History metoprolol tartrate 50 mg tablet 50 mg PO Q12H 05/12/20 10/26/21 History cholecalciferol (vitamin D3) 100 100 mcg PO DAILY 09/16/20 10/26/21 History mcg (4,000 unit) capsule zinc 50 mg tablet 50 mg PO DAILY 09/16/20 10/26/21 History Probiotic 10,000 mmu cells PO QPM 10/14/20 10/26/21 History trazodone 50 mg PO HS 10/14/20 10/26/21 History tamoxifen 20 mg tablet 20 mg PO DAILY 01/05/21 10/26/21 History levothyroxine 125 mcg tablet 125 mcg PO DAILY #90 tablet 07/20/21 10/26/21 Rx fluticasone propionate 50 2 spray NASAL DAILY #9.9 ml 07/24/21 10/26/21 Rx mcg/actuation nasal spray,suspension glucosamine-chondroitin [Osteo 2 tablet PO TID 09/01/21 10/26/21 History Bi-Flex] meloxicam 15 mg tablet 15 mg PO PRN PRN #90 tablet 09/16/21 10/26/21 Rx omeprazole 20 mg capsule,delayed 20 mg PO DAILY #180 cap 10/09/21 10/26/21 Rx release Patient hx anesthesia problems: none Family hx anesthesia problems: none Results Review: All pre-operative results and documents have been reviewed as part of the pre-operative evaluation. [facility] Past Medical History Medical History (Updated 07/15/21 @ 11:01 by Haley Fairbanks MD) Breast cancer Colon polyp Coronary arteriosclerosis Cystic mass of pancreas Discoid lupus Hiatal hernia HLD (hyperlipidemia) Hypertension Hypothyroidism Normal colonoscopy (~2014) JAYSON (obstructive sleep apnea) CPAP Osteopenia Prediabetes Thyroid nodule Surgical History Surgical History H/O: hysterectomy History of back surgery History of cardiac cath History of excision of mass benign tumor, groin History of hemorrhoidectomy History of mastectomy 10/20/20 Left simple mastectomy, Left axillary sentinel lymph node biopsy History of tonsillectomy History of tubal ligation Family History Family History Father , age 65 Cancer Mother , age 59 Carcinoma of colon Grandparent Carcinoma of colon Cerebrovascular accident Acute myocardial infarction Sibling Acute myocardial infarction Other Diabetes mellitus Family history of coronary artery disease Family history of malignant neoplasm Hypertension Social History Social History (Updated 07/15/21 @ 10:06 by Gretel Keller) Smoking status: Never smoker Second hand tobacco smoke exposure: No Alcohol intake: current Drinks per week: 3 Alcohol use details: occasionally Substance use: never Substance use type: does not use Living arrangements: with family Gender identity (if verbalized by the patient): Female Spiritual care concerns: No Anes - Eval Final PreProcedure Day of Procedure 10/26/21 07:39 Patient weight: overweight Heart: regular rate and rhythm Lungs: clear to auscultation Airway: Mallampati scale class II Neurological: alert and oriented Last
--- NOTE | 2021-10-26 07:53 | PM.HPGS ---
History of Present Illness History of Present Illness Consent: Risks, benefits, and alternatives have been discussed and questions answered. Patient agrees to proceed with procedure. Chief complaint: hx of colon polyps Narrative: Randa Chamberlain is a 71 year old female with colon polyps 3 years ago, mother and grandparent had colon cancer. She is getting colonoscopies every 3 years Review of Systems Constitutional: Constitutional: Denies headache(s) and Denies weakness Eyes: Eyes: Denies blurry vision ENT: Reports Normal hearing present, Denies headache(s) and Denies neck pain Cardiovascular: Cardiovascular: Denies chest pain and Denies dyspnea Respiratory: Respiratory: Denies dyspnea Gastrointestinal: Gastrointestinal: Reports no additional gastrointestinal complaints Genitourinary: Genitourinary: Denies dysuria Musculoskeletal: Musculoskeletal: Denies neck pain Integumentary/Breasts: Skin/Breast: Denies dry skin Neurologic: Reports Normal hearing present, Denies headache(s) and Denies weakness Psychiatric: Psychiatric: Denies anxiety Endocrine: Endocrine: Denies change in body appearance Hematologic/Lymphatic: Hematologic/Lymphatic: Denies easy bleeding Allergic/Immunologic: Allergic/Immunologic: Denies urticaria PMF Past Medical History Medical History (Updated 10/26/21 @ 07:54 by Keegan Arnold MD) Breast cancer Colon polyp Coronary arteriosclerosis Cystic mass of pancreas Discoid lupus Family history of colon cancer in mother Hiatal hernia HLD (hyperlipidemia) Hypertension Hypothyroidism Normal colonoscopy (~2014) JAYSON (obstructive sleep apnea) CPAP Osteopenia Prediabetes Thyroid nodule Surgical History Surgical History H/O: hysterectomy History of back surgery History of cardiac cath History of excision of mass benign tumor, groin History of hemorrhoidectomy History of mastectomy 10/20/20 Left simple mastectomy, Left axillary sentinel lymph node biopsy History of tonsillectomy History of tubal ligation Family History Family History Father , age 65 Cancer Mother , age 59 Carcinoma of colon Grandparent Carcinoma of colon Cerebrovascular accident Acute myocardial infarction Sibling Acute myocardial infarction Other Diabetes mellitus Family history of coronary artery disease Family history of malignant neoplasm Hypertension Social History Social History (Updated 07/15/21 @ 10:06 by Gretel Keller) Smoking status: Never smoker Second hand tobacco smoke exposure: No Alcohol intake: current Drinks per week: 3 Alcohol use details: occasionally Substance use: never Substance use type: does not use Living arrangements: with family Gender identity (if verbalized by the patient): Female Spiritual care concerns: No Meds Home Medications and Allergies Home Medications Medication Instructions Recorded Confirmed Type aspirin 81 mg tablet,delayed 81 mg PO QPM 05/12/20 10/26/21 History release ezetimibe 10 mg-simvastatin 40 mg 1 tablet PO QPM 05/12/20 10/26/21 History tablet fexofenadine 180 mg tablet 180 mg PO DAILY 05/12/20 10/26/21 History metoprolol tartrate 50 mg tablet 50 mg PO Q12H 05/12/20 10/26/21 History cholecalciferol (vitamin D3) 100 100 mcg PO DAILY 09/16/20 10/26/21 History mcg (4,000 unit) capsule zinc 50 mg tablet 50 mg PO DAILY 09/16/20 10/26/21 History Probiotic 10,000 mmu cells PO QPM 10/14/20 10/26/21 History trazodone 50 mg PO HS 10/14/20 10/26/21 History tamoxifen 20 mg tablet 20 mg PO DAILY 01/05/21 10/26/21 History levothyroxine 125 mcg tablet 125 mcg PO DAILY #90 tablet 07/20/21 10/26/21 Rx fluticasone propionate 50 2 spray NASAL DAILY #9.9 ml 07/24/21 10/26/21 Rx mcg/actuation nasal spray,suspension glucosamine-chondroitin [Osteo 2 tablet PO TID 09/01
[2021-10-26 08:09] VITALS: BP 96/61; PULSE 58; RESP 17; O2SAT 95
[2021-10-26 08:19] VITALS: BP 101/58; PULSE 61; RESP 22; O2SAT 95
[2021-10-26 08:29] VITALS: BP 115/69; PULSE 61; RESP 17; O2SAT 96
== END 2021-10-26 08:46 | disposition home or self-care (01) ==
PROVIDERS: PCP Family Medicine; Visit Provider Internal Medicine Gastroenterology
PROC: 0DJD8ZZ Inspection of Lower Intestinal Tract, Via Natural or Artificial Opening Endoscopic (ICD-10-PCS; CPT 45378; principal; 2021-10-26 08:00)
DX: Z12.11 Encounter for screening for malignant neoplasm of colon (principal); D12.3 Benign neoplasm of transverse colon; K57.30 Diverticulosis of large intestine without perforation or abscess without bleeding; K64.8 Other hemorrhoids; K64.4 Residual hemorrhoidal skin tags; Z80.0 Family history of malignant neoplasm of digestive organs; I25.10 Atherosclerotic heart disease of native coronary artery without angina pectoris; E78.5 Hyperlipidemia, unspecified; I10 Essential (primary) hypertension; E03.9 Hypothyroidism, unspecified; G47.33 Obstructive sleep apnea (adult) (pediatric); R73.03 Prediabetes; M85.80 Other specified disorders of bone density and structure, unspecified site; Z79.82 Long term (current) use of aspirin; Z79.810 Long term (current) use of selective estrogen receptor modulators (SERMs); Z85.3 Personal history of malignant neoplasm of breast; Z90.12 Acquired absence of left breast and nipple
CPT/HCPCS: 45380; 88305; J2704; J7120

== ENCOUNTER 2022-02-13 10:27 | Outpatient (CLI) | payer MEDICARE, SELFPAY ==
[2022-02-13 10:42] LABS: Basophils Percent Auto 0.2 % (0.2-1.2); Eosinophils Absolute Auto 0.1 K/mm3 (0-0.3); Eosinophils Percent Auto 1.6 % (0-4.4); Hemoglobin 12.7 g/dL (12.0-15.0); Immature Granulocyte Absolute 0.03 K/mm3 (0.00-0.031); Immature Granulocyte Percent A 0.5 % (0-0.5); Lymphocytes Absolute Auto 1.36 K/mm3 (0.9-3.2); Mean Corpuscular HGB Conc 32.6 g/dl (32-36); Mean Corpuscular Hemoglobin 32.1 pg (26-34); Mean Corpuscular Volume 98.5 fl (80-100); Mean Platelet Volume 9.6 fl (7.4-10.4); Monocytes Absolute Auto 0.6 K/mm3 (0.1-0.6); Monocytes Percent Auto 11.1 % (2.6-8.5); Neutrophils Absolute Auto 3.5 K/mm3 (1.3-6.7); Neutrophils Percent Auto 62.6 % (45.5-73.1); Platelet Count Result 211 k/mm3 (150-375); Red Blood Count 3.96 M/mm3 (4.2-5.4); White Blood Count 5.7 K/mm3 (4.5-10.0)
[2022-02-13 10:45] LABS: Blood Urea Nitrogen 14 mg/dL (8-26); Carbon Dioxide 24 mmol/L (22-30); Chloride 105 mmol/L (98-109); Estimated Glomerular Filt Rate > 60; Glucose 111 mg/dL (70-105); Ionized Calcium (POC) 1.15 mmol/L (1.11-1.31); Sodium 141 mmol/L (138-146)
[2022-02-13 12:31] LABS: Alanine Aminotransferase 33 U/L (6-35); Albumin Level 4.4 g/dL (3.5-5.1); Alkaline Phosphatase 95 U/L (38-126); Anion Gap 9 mmol/L (8-16); Aspartate Amino Transferase 36 U/L (14-36); Bilirubin,Total 0.3 mg/dL (0.2-1.3); Blood Urea Nitrogen 15 mg/dL (7-17); Calcium 9.1 mg/dL (8.4-10.2); Carbon Dioxide 25 mmol/L (22-30); Chloride 106 mmol/L (98-107); Estimated Glomerular Filt Rate > 60; Glucose 109 mg/dL (65-110); Sodium 140 mmol/L (137-145)
== END 2022-02-13 10:28 | disposition home or self-care (01) ==
LOC: ANHLAB 10:28
PROVIDERS: PCP Family Medicine; Visit Provider Internal Medicine Hematology & Oncology
DX: D05.12 Intraductal carcinoma in situ of left breast (principal)
CPT/HCPCS: 36415; 80047; 80053; 85025

== ENCOUNTER 2022-05-04 10:10 | Outpatient (CLI) | payer MEDICARE, SELFPAY ==
--- NOTE | ~2022-05-04 | MM_ITS ---
EXAMINATION: MM screening janette RT w franca HISTORY: Screening mammogram TECHNIQUE: Craniocaudal and mediolateral oblique 3-D tomosynthesis images were obtained and synthetic 2-D images were generated. CAD analysis was submitted and interpreted. COMPARISON: 05/03/2021 right screening mammogram 08/02/2020, 07/31/2019 bilateral screening mammogram examinations BREAST PARENCHYMAL COMPOSITION: There are scattered areas of fibroglandular density. FINDINGS: There is no evidence of suspicious mass, calcification, or architectural distortion to sugg est malignancy in either breast. There has been no suspicious interval change. IMPRESSION: 1. History of left mastectomy for breast cancer. No mammographic evidence of malignancy of right evelina st. 2. Recommend routine screening mammography in one year. BI-RADS Category 1: Negative Reviewed, dictated and finalized at location A. IMPRESSION: 1. History of left mastectomy for breast cancer. No mammographic evidence of ma lignancy of right breast. 2. Recommend routine screening mammography in one year. BI-RADS Category 1: Negative
== END 2022-05-04 10:11 | disposition home or self-care (01) ==
LOC: ANHIMG 10:11
PROVIDERS: PCP Family Medicine; Visit Provider Internal Medicine Hematology & Oncology
DX: Z12.31 Encounter for screening mammogram for malignant neoplasm of breast (principal)
CPT/HCPCS: 77063; 77067

== ENCOUNTER 2022-06-15 08:03 | Outpatient (CLI) | payer MEDICARE, SELFPAY ==
[2022-06-15 08:29] LABS: Basophils Percent Auto 0.2 % (0.2-1.2); Eosinophils Absolute Auto 0.1 K/mm3 (0-0.3); Eosinophils Percent Auto 2.7 % (0-4.4); Hematocrit 39.3 % (37.0-47.0); Immature Granulocyte Absolute 0.04 K/mm3 (0.00-0.031); Immature Granulocyte Percent A 0.8 % (0-0.5); Lymphocytes Absolute Auto 1.18 K/mm3 (0.9-3.2); Lymphocytes Percent Auto 24.4 % (18.3-44.2); Mean Corpuscular HGB Conc 33.1 g/dl (32-36); Mean Corpuscular Hemoglobin 32.6 pg (26-34); Mean Corpuscular Volume 98.5 fl (80-100); Mean Platelet Volume 9.4 fl (7.4-10.4); Monocytes Absolute Auto 0.6 K/mm3 (0.1-0.6); Neutrophils Absolute Auto 2.9 K/mm3 (1.3-6.7); Neutrophils Percent Auto 59.9 % (45.5-73.1); Platelet Count Result 180 k/mm3 (150-375); Red Blood Count 3.99 M/mm3 (4.2-5.4); Red Cell Distribution Width 12.2 % (11.5-14.5); White Blood Count 4.8 K/mm3 (4.5-10.0)
[2022-06-15 10:50] LABS: Alanine Aminotransferase 33 U/L (6-35); Albumin Level 4.6 g/dL (3.5-5.1); Alkaline Phosphatase 91 U/L (38-126); Anion Gap 12 mmol/L (8-16); Aspartate Amino Transferase 35 U/L (14-36); Bilirubin,Total 0.5 mg/dL (0.2-1.3); Blood Urea Nitrogen 13 mg/dL (7-17); Calcium 9.4 mg/dL (8.4-10.2); Carbon Dioxide 27 mmol/L (22-30); Chloride 103 mmol/L (98-107); Cholesterol 124 mg/dL (0-200); Estimated Glomerular Filt Rate > 60; Glucose 112 mg/dL (65-110); HDL Direct 40 mg/dL; Potassium 3.9 mmol/L (3.4-5.0); Sodium 142 mmol/L (137-145); Triglycerides 115 mg/dL (<150)
[2022-06-15 11:01] LABS: LDL Cholesterol Direct 67 mg/dL
[2022-06-15 11:45] LABS: Hemoglobin A1C 6.1 % (<5.7)
[2022-06-15 13:38] LABS: Free T4 Free Thyroxine Reflex 1.07 ng/dL (0.78-2.19)
[2022-06-15 14:24] LABS: Total Triiodothyronine (T3) 1.33 NG/ML (0.97-1.69)
== END 2022-06-15 08:04 | disposition home or self-care (01) ==
LOC: ANHLAB 08:04
PROVIDERS: PCP Family Medicine; Visit Provider Family Medicine
DX: R73.03 Prediabetes (principal); E03.9 Hypothyroidism, unspecified; R53.83 Other fatigue; E78.2 Mixed hyperlipidemia; I10 Essential (primary) hypertension
CPT/HCPCS: 36415; 80053; 80061; 83036; 84439; 84443; 84480; 85025

== ENCOUNTER 2022-07-31 12:37 | Outpatient (CLI) | payer MEDICARE, SELFPAY ==
[2022-07-31 12:49] LABS: Basophils Percent Auto 0.2 % (0.2-1.2); Eosinophils Absolute Auto 0.1 K/mm3 (0-0.3); Eosinophils Percent Auto 2.3 % (0-4.4); Hematocrit 39.4 % (37.0-47.0); Hemoglobin 12.7 g/dL (12.0-15.0); Immature Granulocyte Absolute 0.04 K/mm3 (0.00-0.031); Immature Granulocyte Percent A 0.8 % (0-0.5); Lymphocytes Absolute Auto 1.71 K/mm3 (0.9-3.2); Lymphocytes Percent Auto 32.8 % (18.3-44.2); Mean Corpuscular HGB Conc 32.2 g/dl (32-36); Mean Corpuscular Hemoglobin 32.3 pg (26-34); Mean Corpuscular Volume 100.3 fl (80-100); Mean Platelet Volume 9.5 fl (7.4-10.4); Monocytes Absolute Auto 0.6 K/mm3 (0.1-0.6); Monocytes Percent Auto 10.5 % (2.6-8.5); Neutrophils Absolute Auto 2.8 K/mm3 (1.3-6.7); Neutrophils Percent Auto 53.4 % (45.5-73.1); Platelet Count Result 215 k/mm3 (150-375); Red Blood Count 3.93 M/mm3 (4.2-5.4); White Blood Count 5.2 K/mm3 (4.5-10.0)
[2022-07-31 12:54] LABS: Blood Urea Nitrogen 13 mg/dL (8-26); Carbon Dioxide 25 mmol/L (22-30); Chloride 103 mmol/L (98-109); Estimated Glomerular Filt Rate > 60; Glucose 109 mg/dL (70-105); Ionized Calcium (POC) 1.19 mmol/L (1.11-1.31); Potassium 3.7 mmol/L (3.5-4.9); Sodium 141 mmol/L (138-146)
[2022-07-31 13:18] LABS: Alanine Aminotransferase 29 U/L (6-35); Albumin Level 4.3 g/dL (3.5-5.1); Alkaline Phosphatase 111 U/L (38-126); Anion Gap 10 mmol/L (8-16); Aspartate Amino Transferase 34 U/L (14-36); Bilirubin,Total 0.4 mg/dL (0.2-1.3); Blood Urea Nitrogen 13 mg/dL (7-17); Calcium 9.1 mg/dL (8.4-10.2); Carbon Dioxide 25 mmol/L (22-30); Chloride 105 mmol/L (98-107); Estimated Glomerular Filt Rate > 60; Glucose 109 mg/dL (65-110); Potassium 3.8 mmol/L (3.4-5.0); Sodium 140 mmol/L (137-145)
== END 2022-07-31 12:38 | disposition home or self-care (01) ==
LOC: ANHLAB 12:38
PROVIDERS: PCP Family Medicine; Visit Provider Internal Medicine Hematology & Oncology
DX: D05.12 Intraductal carcinoma in situ of left breast (principal)
CPT/HCPCS: 36415; 80047; 80053; 85025

== ENCOUNTER 2022-12-18 11:20 | Outpatient (CLI) | payer MEDICARE, SELFPAY ==
[2022-12-18 14:44] LABS: Alanine Aminotransferase 27 U/L (6-35); Albumin Level 4.5 g/dL (3.5-5.1); Alkaline Phosphatase 97 U/L (38-126); Anion Gap 8 mmol/L (8-16); Aspartate Amino Transferase 30 U/L (14-36); Bilirubin,Total 0.6 mg/dL (0.2-1.3); Blood Urea Nitrogen 20 mg/dL (7-17); Calcium 9.3 mg/dL (8.4-10.2); Carbon Dioxide 28 mmol/L (22-30); Chloride 104 mmol/L (98-107); Cholesterol 120 mg/dL (0-200); Estimated Glomerular Filt Rate > 60; Glucose 92 mg/dL (65-110); HDL Direct 47 mg/dL; Potassium 3.9 mmol/L (3.4-5.0); Sodium 140 mmol/L (137-145); Triglycerides 85 mg/dL (<150)
[2022-12-18 14:55] LABS: LDL Cholesterol Direct 57 mg/dL
[2022-12-18 15:32] LABS: Hepatitis C Virus Antibody Negative (Negative)
[2022-12-18 17:50] LABS: Hemoglobin A1C 5.9 % (<5.7)
== END 2022-12-18 11:21 | disposition home or self-care (01) ==
LOC: ANHLAB 11:23
PROVIDERS: PCP Family Medicine; Visit Provider Internal Medicine Cardiovascular Disease
DX: E03.9 Hypothyroidism, unspecified (principal); Z11.59 Encounter for screening for other viral diseases; E78.2 Mixed hyperlipidemia; R73.03 Prediabetes
CPT/HCPCS: 36415; 80053; 80061; 83036; 84443; 86803

== ENCOUNTER 2022-12-18 13:17 | Outpatient (CLI) | payer MEDICARE, SELFPAY ==
--- NOTE | ~2022-12-18 | XR_ITS ---
EXAMINATION: XR chest 2V Exam Date/Time: 12/18/2022 13:32 CDT HISTORY: R05.9 - Cough, unspecified Comparison: 08/05/2020. RESULT: Lines, tubes, and devices: None. Lungs and pleura: Atelectasis/scar in the left lung base. Calcified granulomas. Cardiomediastinal silhouette: Stable. Calcified hilar nodes Other: No acute osseous or upper abdominal finding. IMPRESSION: No acute cardiopulmonary process. Reviewed, dictated and finalized at location K.
--- NOTE | ~2022-12-18 | US_ITS ---
EXAMINATION: US arterial ankle brachial ind DATE: 12/18/2022 14:01 INDICATION: Screening for peripheral arterial occlusive disease. Risk factors of hypertension and hyp ercholesterolemia. TECHNIQUE: Segmental pressures and plethysmographic and Doppler waveforms of the brachial and lower e xtremity arteries were obtained. COMPARISON: None. FINDINGS: Right brachial artery pressure of 133 mm Hg . Left brachial artery pressure was not obtained due to p rior left breast surgery. The right ankle-brachial index (ANTWON) is 1.26 (normal >= 0.9-1.0). The right great toe-brachial index (TBI) is 1.39 (normal >= 0.65). Arterial Doppler waveforms are triphasic with brisk systolic upstroke s at both right posterior tibial and dorsalis pedis arteries. The left ANTWON is 1.26. The left TBI is 1.08. Arterial Doppler waveforms are triphasic with brisk systo lic upstrokes at both left posterior tibial and dorsalis pedis arteries. IMPRESSION: 1. No significant arterial occlusive disease to either lower limb with normal bilateral ABIs and TBIs Reviewed, dictated and finalized at location A. IMPRESSION: 1. No significant arterial occlusive disease to either lower limb with normal b ilateral ABIs and TBIs
== END 2022-12-18 13:18 | disposition home or self-care (01) ==
PROVIDERS: PCP Family Medicine; Visit Provider Family Medicine
DX: I73.9 Peripheral vascular disease, unspecified (principal); R05.9 Cough, unspecified
CPT/HCPCS: 36415; 71046; 80053; 80061; 83036; 84443; 86803; 93922

== ENCOUNTER 2023-01-29 12:47 | Outpatient (CLI) | payer MEDICARE, SELFPAY ==
[2023-01-29 13:00] LABS: Basophils Percent Auto 0.3 % (0.2-1.2); Eosinophils Absolute Auto 0.1 K/mm3 (0-0.3); Eosinophils Percent Auto 2.3 % (0-4.4); Hematocrit 40.6 % (37.0-47.0); Hemoglobin 13.2 g/dL (12.0-15.0); Immature Granulocyte Absolute 0.06 K/mm3 (0.00-0.031); Lymphocytes Absolute Auto 1.63 K/mm3 (0.9-3.2); Lymphocytes Percent Auto 26.8 % (18.3-44.2); Mean Corpuscular HGB Conc 32.5 g/dl (32-36); Mean Corpuscular Hemoglobin 32.2 pg (26-34); Mean Platelet Volume 9.4 fl (7.4-10.4); Monocytes Absolute Auto 0.6 K/mm3 (0.1-0.6); Monocytes Percent Auto 10.5 % (2.6-8.5); Neutrophils Absolute Auto 3.6 K/mm3 (1.3-6.7); Neutrophils Percent Auto 59.1 % (45.5-73.1); Platelet Count Result 226 k/mm3 (150-375); Red Cell Distribution Width 12.2 % (11.5-14.5); White Blood Count 6.1 K/mm3 (4.5-10.0)
[2023-01-29 13:06] LABS: Blood Urea Nitrogen 13 mg/dL (8-26); Carbon Dioxide 25 mmol/L (22-30); Chloride 103 mmol/L (98-109); Estimated Glomerular Filt Rate > 60; Glucose 105 mg/dL (70-105); Ionized Calcium (POC) 1.18 mmol/L (1.11-1.31); Potassium 3.9 mmol/L (3.5-4.9); Sodium 141 mmol/L (138-146)
[2023-01-29 16:20] LABS: Alanine Aminotransferase 22 U/L (6-35); Albumin Level 4.4 g/dL (3.5-5.1); Alkaline Phosphatase 114 U/L (38-126); Anion Gap 8 mmol/L (8-16); Aspartate Amino Transferase 28 U/L (14-36); Bilirubin,Total 0.3 mg/dL (0.2-1.3); Blood Urea Nitrogen 15 mg/dL (7-17); Calcium 9.2 mg/dL (8.4-10.2); Carbon Dioxide 28 mmol/L (22-30); Chloride 104 mmol/L (98-107); Estimated Glomerular Filt Rate > 60; Glucose 104 mg/dL (65-110); Sodium 140 mmol/L (137-145)
== END 2023-01-29 12:48 | disposition home or self-care (01) ==
LOC: ANHLAB 12:49
PROVIDERS: PCP Family Medicine; Visit Provider Internal Medicine Hematology & Oncology
DX: D05.12 Intraductal carcinoma in situ of left breast (principal)
CPT/HCPCS: 36415; 80047; 80053; 85025

== ENCOUNTER 2023-05-07 10:15 | Outpatient (CLI) | payer MEDICARE, SELFPAY ==
--- NOTE | ~2023-05-07 | MM_ITS ---
EXAMINATION: MM screening janette RT w franca HISTORY: Screening mammogram; status post left mastectomy for breast cancer. TECHNIQUE: Craniocaudal and mediolateral oblique 3-D tomosynthesis images were obtained and synthetic 2-D images were generated. CAD analysis was submitted and interpreted. COMPARISON: 05/04/2022, 05/03/2021, 08/12/2020 right screening mammogram examinations BREAST PARENCHYMAL COMPOSITION: There are scattered areas of fibroglandular density. FINDINGS: There is no evidence of suspicious mass, calcification, or architectural distortion to sugg est malignancy in either breast. There has been no suspicious interval change. IMPRESSION: 1. Status post left mastectomy. No mammographic evidence of malignancy. 2. Recommend routine screening mammography in one year. BI-RADS Category 1: Negative Reviewed, dictated and finalized at location A.
== END 2023-05-07 10:16 | disposition home or self-care (01) ==
PROVIDERS: PCP Family Medicine; Visit Provider Internal Medicine Hematology & Oncology
DX: Z12.31 Encounter for screening mammogram for malignant neoplasm of breast (principal); Z90.12 Acquired absence of left breast and nipple
CPT/HCPCS: 77063; 77067

== ENCOUNTER 2023-07-31 12:55 | Outpatient (CLI) | payer MEDICARE, SELFPAY ==
[2023-07-31 13:08] LABS: Basophils Percent Auto 0.2 % (0.2-1.2); Eosinophils Absolute Auto 0.1 K/mm3 (0-0.3); Eosinophils Percent Auto 2.1 % (0-4.4); Hemoglobin 13.6 g/dL (12.0-15.0); Immature Granulocyte Absolute 0.05 K/mm3 (0.00-0.031); Immature Granulocyte Percent A 1.1 % (0-0.5); Lymphocytes Absolute Auto 1.59 K/mm3 (0.9-3.2); Lymphocytes Percent Auto 33.6 % (18.3-44.2); Mean Corpuscular HGB Conc 32.4 g/dl (32-36); Mean Corpuscular Hemoglobin 32.4 pg (26-34); Monocytes Absolute Auto 0.5 K/mm3 (0.1-0.6); Monocytes Percent Auto 10.4 % (2.6-8.5); Neutrophils Absolute Auto 2.5 K/mm3 (1.3-6.7); Neutrophils Percent Auto 52.6 % (45.5-73.1); Platelet Count Result 210 k/mm3 (150-375); Red Cell Distribution Width 12.1 % (11.5-14.5); White Blood Count 4.7 K/mm3 (4.5-10.0)
[2023-07-31 13:53] LABS: Alanine Aminotransferase 21 U/L (6-35); Albumin Level 4.4 g/dL (3.5-5.1); Alkaline Phosphatase 104 U/L (38-126); Anion Gap 11 mmol/L (8-16); Aspartate Amino Transferase 26 U/L (14-36); Bilirubin,Total 0.5 mg/dL (0.2-1.3); Blood Urea Nitrogen 14 mg/dL (7-17); Calcium 9.6 mg/dL (8.4-10.2); Carbon Dioxide 28 mmol/L (22-30); Chloride 103 mmol/L (98-107); Estimated Glomerular Filt Rate > 60; Glucose 119 mg/dL (65-110); Potassium 3.5 mmol/L (3.4-5.0); Sodium 142 mmol/L (137-145)
== END 2023-07-31 12:56 | disposition home or self-care (01) ==
LOC: ANHLAB 12:57
PROVIDERS: PCP Family Medicine; Visit Provider Internal Medicine Hematology & Oncology
DX: D05.12 Intraductal carcinoma in situ of left breast (principal)
CPT/HCPCS: 36415; 80053; 85025

== ENCOUNTER 2023-08-16 10:35 | Emergency (ER) | payer MEDICARE, SELFPAY ==
[2023-08-16 10:49] VITALS: BP 142/77; PULSE 64; RESP 16; TEMP 35.9; O2SAT 100
--- NOTE | 2023-08-16 10:52 | ED.GENADULT ---
HPI - General Adult General Chief complaint: Eye Problems Stated complaint: Eye Irritation, Urinary Problems, Covid Source: patient, RN notes reviewed and old records reviewed Mode of arrival: ambulatory Limitations: no limitations History of Present Illness HPI narrative: 73-year-old female [facility] with complaint of vaginal irritation and a tannish colored vaginal discharge this started 2-3 days ago patient states started after having COVID last week. Patient denies taking antibiotics recently. Patient denies concerns for STDs. Patient also complaining of bilateral eye redness and tearing for the last few days. Related Data Home Medications Medication Instructions Recorded Confirmed aspirin 81 mg tablet,delayed 81 mg PO QPM 05/12/20 08/16/23 release (Adult Aspirin Regimen) fexofenadine 180 mg tablet 180 mg PO DAILY 05/12/20 08/16/23 (Allergy Relief (fexofenadine)) metoprolol tartrate 50 mg tablet 50 mg PO Q12H 05/12/20 08/16/23 cholecalciferol (vitamin D3) 100 100 mcg PO DAILY 09/16/20 08/16/23 mcg (4,000 unit) capsule zinc 50 mg tablet 50 mg PO DAILY 09/16/20 08/16/23 Lactobacillus acidophilus 10 10,000 mmu cells PO QPM 10/14/20 08/16/23 billion cell capsule (Probiotic) tamoxifen 20 mg tablet 20 mg PO DAILY 01/05/21 08/16/23 glucosamine-chondroitin 250 mg-200 2 tablet PO TID 09/01/21 08/16/23 mg tablet (Osteo Bi-Flex) Allergies Allergy/AdvReac Type Severity Reaction Status Date / Time Penicillins Allergy Unknown SWELLING Verified 08/16/23 10:45 AND ITCHING Sulfa (Sulfonamide Allergy Unknown Unknown Verified 08/16/23 10:45 Antibiotics) Review of Systems Constitutional: Constitutional: Reports no additional constitutional complaints, Denies body ache(s), Denies chills, Denies fatigue, Denies fever(s) and Denies headache(s) Eyes: Eyes: Reports as per HPI, Denies blind spots, Denies blurry vision, Denies exophthalmos, Denies change in vision, Denies decreased night vision, Denies diplopia, Reports eye discharge, Reports irritation, Reports itchy eyes, Denies loss of peripheral vision, Denies loss of vision, Denies other visual disturbances and Denies eye pain ENT: Reports system reviewed and no additional complaints, except as documented, Denies vertigo, Denies dizziness, Denies ear discharge, Denies otalgia, Denies facial pain, Denies headache(s), Denies nasal congestion, Denies nasal discharge, Denies sinus pain, Denies sinus pressure and Denies sore throat Cardiovascular: Cardiovascular: Reports no additional cardiovascular complaints, Denies chest pain, Denies chest pain at rest, Denies rapid heart rate and Denies dyspnea Respiratory: Respiratory: Reports no additional respiratory complaints, Denies chest congestion, Denies cough, Denies pain on inspiration, Denies pain with cough and Denies dyspnea Gastrointestinal: Gastrointestinal: Denies abdominal pain, Denies diarrhea, Denies nausea and Denies vomiting Genitourinary: Genitourinary: Reports as per HPI, Denies abnormal vaginal bleeding, Denies dyspareunia, Denies dysmenorrhea, Denies dysuria, Reports pelvic pain, Denies urinary incontinence, Denies urinary hesitancy, Denies urinary urgency, Reports vaginal discharge, Denies vaginal dryness, Denies vaginal odor and Denies vaginal pruritus Integumentary/Breasts: Skin/Breast: Denies rash Neurologic: Reports system reviewed and no additional complaints, except as documented, Denies vertigo, Denies dizziness and Denies headache(s) Endocrine: Endocrine: Denies fatigue PMFSH Past Medical History Medical History Allergic rhinitis Breast cancer Colon polyp Coronary arteriosclerosis Cystic mass of pancreas Discoid lupus Family history of colon cancer in mother Hepatitis C antibody test negative Hiatal hernia HLD (hyperlipidemia) Hypertension Hypothyroidism Normal colonoscopy (~2014) JAYSON (obstructive sleep apnea) CPAP Oste
== END 2023-08-16 11:00 | disposition home or self-care (01) ==
PROVIDERS: Emergency Provider Registered Nurse; PCP Family Medicine
DX: B37.31 Acute candidiasis of vulva and vagina (principal); B30.9 Viral conjunctivitis, unspecified; E03.9 Hypothyroidism, unspecified; I10 Essential (primary) hypertension; E78.5 Hyperlipidemia, unspecified; Z79.82 Long term (current) use of aspirin; Z79.899 Other long term (current) drug therapy; Z85.3 Personal history of malignant neoplasm of breast
CPT/HCPCS: 99213; G0463

== ENCOUNTER 2023-09-27 12:54 | Outpatient (CLI) | payer MEDICARE, SELFPAY ==
--- NOTE | ~2023-09-27 | XR_ITS ---
XR hip RT min 2V DATE: 09/27/2023 13:06 INDICATION: Right hip pain TECHNIQUE: AP and lateral views COMPARISON: None FINDINGS: Prominent degenerative disc disease at L4-5 and L5-S1. Degenerative change at the right sac roiliac joint. Normal alignment at the right sacroiliac joint and pubic symphysis. Severe right hip joint space narrowing and prominent spurring consistent with severe right hip osteoa rthritis. No fracture or dislocation, avascular necrosis or bone destruction of the right hip is dete cted. IMPRESSION: Severe right hip osteoarthritis Reviewed, dictated and finalized at location L. SSION NURSE COORDINATOR
== END 2023-09-27 12:55 | disposition home or self-care (01) ==
PROVIDERS: PCP Family Medicine; Visit Provider Family Medicine
DX: M16.11 Unilateral primary osteoarthritis, right hip (principal)
CPT/HCPCS: 73502

== ENCOUNTER 2023-11-06 10:06 | Outpatient (CLI) | payer MEDICARE, SELFPAY ==
[2023-11-06 12:36] LABS: Hemoglobin A1C 5.8 % (<5.7)
[2023-11-06 12:42] LABS: Thyroid Stimulating Hormone Reflex 0.081 uIU/mL (0.465-4.68)
[2023-11-06 13:06] LABS: Alanine Aminotransferase 20 U/L (6-35); Albumin Level 4.6 g/dL (3.5-5.1); Alkaline Phosphatase 89 U/L (38-126); Anion Gap 8 mmol/L (8-16); Aspartate Amino Transferase 29 U/L (14-36); Bilirubin,Total 0.6 mg/dL (0.2-1.3); Blood Urea Nitrogen 17 mg/dL (7-17); Calcium 9.5 mg/dL (8.4-10.2); Carbon Dioxide 24 mmol/L (22-30); Chloride 108 mmol/L (98-107); Cholesterol 130 mg/dL (0-200); Estimated Glomerular Filt Rate > 60; Glucose 97 mg/dL (65-110); HDL Direct 47 mg/dL; Sodium 140 mmol/L (137-145); Triglycerides 106 mg/dL (<150)
[2023-11-06 13:13] LABS: LDL Cholesterol Direct 72 mg/dL
[2023-11-06 14:15] LABS: Free T4 Free Thyroxine Reflex 1.54 ng/dL (0.78-2.19)
[2023-11-06 14:57] LABS: Total Triiodothyronine (T3) 1.68 NG/ML (0.97-1.69)
== END 2023-11-06 10:07 | disposition home or self-care (01) ==
LOC: ANHLAB 10:08
PROVIDERS: PCP Family Medicine; Visit Provider Internal Medicine Hematology & Oncology
DX: R73.03 Prediabetes (principal); Z00.00 Encounter for general adult medical examination without abnormal findings; E03.9 Hypothyroidism, unspecified; E78.2 Mixed hyperlipidemia
CPT/HCPCS: 36415; 80053; 80061; 83036; 84439; 84443; 84480

== ENCOUNTER 2024-01-31 10:30 | Outpatient (CLI) | payer MEDICARE, SELFPAY ==
[2024-01-31 10:47] LABS: Basophils Percent Auto 0.2 % (0.2-1.2); Eosinophils Absolute Auto 0.2 K/mm3 (0-0.3); Eosinophils Percent Auto 2.9 % (0-4.4); Hematocrit 42.4 % (37.0-47.0); Hemoglobin 13.8 g/dL (12.0-15.0); Immature Granulocyte Absolute 0.05 K/mm3 (0.00-0.031); Lymphocytes Absolute Auto 1.56 K/mm3 (0.9-3.2); Lymphocytes Percent Auto 29.7 % (18.3-44.2); Mean Corpuscular HGB Conc 32.5 g/dl (32-36); Mean Corpuscular Hemoglobin 32.2 pg (26-34); Mean Corpuscular Volume 98.8 fl (80-100); Mean Platelet Volume 9.8 fl (7.4-10.4); Monocytes Absolute Auto 0.6 K/mm3 (0.1-0.6); Monocytes Percent Auto 11.8 % (2.6-8.5); Neutrophils Absolute Auto 2.9 K/mm3 (1.3-6.7); Neutrophils Percent Auto 54.4 % (45.5-73.1); Platelet Count Result 224 k/mm3 (150-375); Red Blood Count 4.29 M/mm3 (4.2-5.4); Red Cell Distribution Width 12.3 % (11.5-14.5); White Blood Count 5.3 K/mm3 (4.5-10.0)
[2024-01-31 10:50] LABS: Blood Urea Nitrogen 20 mg/dL (8-26); Carbon Dioxide 30 mmol/L (22-30); Chloride 103 mmol/L (98-109); Estimated Glomerular Filt Rate > 60; Glucose 107 mg/dL (70-105); Ionized Calcium (POC) 1.22 mmol/L (1.11-1.31); Potassium 4.2 mmol/L (3.5-4.9); Sodium 140 mmol/L (138-146)
[2024-01-31 21:52] LABS: Alanine Aminotransferase 20 U/L (6-35); Alkaline Phosphatase 109 U/L (38-126); Anion Gap 10 mmol/L (4-12); Aspartate Amino Transferase 30 U/L (14-36); Bilirubin,Total 0.5 mg/dL (0.2-1.3); Blood Urea Nitrogen 21 mg/dL (7-17); Calcium 9.7 mg/dL (8.4-10.2); Carbon Dioxide 25 mmol/L (22-30); Chloride 104 mmol/L (98-107); Estimated Glomerular Filt Rate > 60; Glucose 103 mg/dL (65-110); Potassium 4.3 mmol/L (3.4-5.0); Sodium 139 mmol/L (137-145)
== END 2024-01-31 10:31 | disposition home or self-care (01) ==
LOC: ANHLAB 10:32
PROVIDERS: PCP Family Medicine; Visit Provider Internal Medicine Hematology & Oncology
DX: D05.12 Intraductal carcinoma in situ of left breast (principal)
CPT/HCPCS: 36415; 80047; 80053; 85025

== ENCOUNTER 2024-05-27 07:14 | Outpatient (CLI) | payer MEDICARE, SELFPAY ==
--- NOTE | ~2024-05-27 | MM_ITS ---
EXAMINATION: MM screening janette RT w franca HISTORY: Screening TECHNIQUE: Craniocaudal and mediolateral oblique 3-D tomosynthesis images were obtained and synthetic 2-D images were generated. CAD analysis was submitted and interpreted. COMPARISON: Comparison to multiple prior studies sequentially, with oldest reviewed study dated 02/2021. BREAST PARENCHYMAL COMPOSITION: Not dense: There are scattered areas of fibroglandular density. FINDINGS: There is no evidence of suspicious mass, calcification, or architectural distortion to sugg est malignancy in either breast. There has been no suspicious interval change. IMPRESSION: 1. No mammographic evidence of malignancy. 2. Recommend routine screening mammography in one year. BI-RADS Category 1: Negative Reviewed, dictated and finalized at location B.
== END 2024-05-27 07:15 | disposition home or self-care (01) ==
PROVIDERS: PCP Family Medicine; Visit Provider Internal Medicine Hematology & Oncology
DX: Z12.31 Encounter for screening mammogram for malignant neoplasm of breast (principal)
CPT/HCPCS: 77063; 77067

== ENCOUNTER 2024-08-01 09:21 | Outpatient (CLI) | payer MEDICARE, SELFPAY ==
[2024-08-01 09:34] LABS: Basophils Percent Auto 0.2 % (0.2-1.2); Eosinophils Absolute Auto 0.2 K/mm3 (0-0.3); Hematocrit 38.3 % (37.0-47.0); Hemoglobin 12.2 g/dL (12.0-15.0); Immature Granulocyte Absolute 0.03 K/mm3 (0.00-0.031); Immature Granulocyte Percent A 0.6 % (0-0.5); Lymphocytes Percent Auto 24.7 % (18.3-44.2); Mean Corpuscular HGB Conc 31.9 g/dl (32-36); Mean Corpuscular Hemoglobin 32.6 pg (26-34); Mean Corpuscular Volume 102.4 fl (80-100); Mean Platelet Volume 9.7 fl (7.4-10.4); Monocytes Absolute Auto 0.6 K/mm3 (0.1-0.6); Monocytes Percent Auto 12.2 % (2.6-8.5); Neutrophils Absolute Auto 3.1 K/mm3 (1.3-6.7); Neutrophils Percent Auto 58.3 % (45.5-73.1); Platelet Count Result 207 k/mm3 (150-375); Red Blood Count 3.74 M/mm3 (4.2-5.4); Red Cell Distribution Width 12.7 % (11.5-14.5); White Blood Count 5.3 K/mm3 (4.5-10.0)
[2024-08-01 09:41] LABS: Blood Urea Nitrogen 16 mg/dL (8-26); Carbon Dioxide 24 mmol/L (22-30); Chloride 103 mmol/L (98-109); Estimated Glomerular Filt Rate > 60; Glucose 123 mg/dL (70-105); Ionized Calcium (POC) 1.22 mmol/L (1.11-1.31); Potassium 3.9 mmol/L (3.5-4.9); Sodium 141 mmol/L (138-146)
[2024-08-01 11:02] LABS: Alanine Aminotransferase 18 U/L (6-35); Albumin Level 4.5 g/dL (3.5-5.1); Alkaline Phosphatase 101 U/L (38-126); Anion Gap 4 mmol/L (4-12); Aspartate Amino Transferase 26 U/L (14-36); Bilirubin,Total 0.5 mg/dL (0.2-1.3); Blood Urea Nitrogen 17 mg/dL (7-17); Calcium 9.2 mg/dL (8.4-10.2); Carbon Dioxide 28 mmol/L (22-30); Chloride 107 mmol/L (98-107); Estimated Glomerular Filt Rate > 60; Glucose 121 mg/dL (65-110); Potassium 3.9 mmol/L (3.4-5.0); Sodium 139 mmol/L (137-145)
== END 2024-08-01 09:22 | disposition home or self-care (01) ==
LOC: ANHLAB 09:22
PROVIDERS: PCP Family Medicine; Visit Provider Internal Medicine Hematology & Oncology
DX: D05.12 Intraductal carcinoma in situ of left breast (principal)
CPT/HCPCS: 36415; 80047; 80053; 85025

== ENCOUNTER 2025-01-06 02:30 | Day surgery (SDC) | payer MEDICARE, SELFPAY ==
--- OUTSIDE RECORDS SUMMARY | 2025-01-06 02:33 | XMS_ITS | Encounter Summary ---
Author Organization [facility] Healthcare Address [address] [place] [address] Care Team Providers Care General Assistant Name Role Phone Haley Fairbanks MD Primary Care Provider Reggie Rudolph MD Unavailable [phone] Encounter Details Date Type Department Care Team (Late st Contact Info) Description 01/05/2025 Orders Only [facility] Cardiology [address] [place] [id number] Provider, MD Ignacio [address] [place] [address] Social History Tobacco Use Types Packs/Day Years Used Date Smoking Tobacco: Never Smokeless Tobacco: Never Alcohol Use Standard Drinks/Week Comments Yes 0 (1 standard drink = 0.6 oz pur e alcohol) AUDIT-C Answer Date Recorded Q1: How often do you have a drink containing alcohol? Never 08/05/2024 Q2: How many drinks containi ng alcohol do you have on a typical day when you are drinking? Patient does not drink Q3: How often do you have si x or more drinks on one occasion? Never 08/05/2024 Personal Safety Answer Date Recorded Have you ever been in or are you currently in a harmful physical or emotional relationship or is someone making you feel afraid or unsafe? 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 Gender Identity Female 05/23/2024 12:52 PM CDT Sexual Orientation Not on file documented as of this encounter Plan of Treatment Not on file documented as of this encounter Procedures Procedure Name Priority Date/Time Associated Diagnosis Comments LIPID PANEL Routine 11/03/2024 11:47 AM CDT documented in this encounter Results * Lipid panel (11/03/2024 11:47 AM CDT) SCRIBED Cholesterol, Total 123 30 - 199 mg/dL [facility] Triglycerides 81 <=149 mg/dL [facility] HDL 54 >=40 mg/dL [facility] LDL 53 <=129 mg/dL [facility] Scribed Non-HDL Cholesterol 69 NONE mg/dL [facility] Total Cholesterol/HDL Ratio 2 NONE [facility] Blood us Historical Provider LAB BLOOD ORDERABLES Edit ed Result - Final [facility] documented in this encounter Visit Diagnoses Not on filedocumented in this encounter Care Teams General Assistant Relationship Specialty Start Date End Date Haley Fairbanks MD PCP - General 11/24/16 Reggie Rudolph MD [address] [place] [address] DR F[address]TON [address] [place] [address] Surgeon Orthopedic Surgery 06/09/24 documented as of this encounter
--- OUTSIDE RECORDS SUMMARY | 2025-01-06 02:33 | XMS_ITS | Encounter Summary ---
Author Organization [facility] Address [address] [place] [address] Care Team Providers Care Senior Online Marketing Manager Name Role Phone Haley Fairbanks MD Primary Care Provider [phone] Encounter Details Date Type Department Care Team (Late st Contact Info) Description 11/10/2020 Chart Note [facility] Radiation Therapy [address] [place] [address] [place] [address] [place] [address] Social History Tobacco Use Types Packs/Day Years Used Date Smoking Tobacco: Never Smokeless Tobacco: Never Alcohol Use Standard Drinks/Week Comments Yes 0 (1 standard drink = 0.6 oz pur e alcohol) occasional Feeling Safe Answer Date Recorded Within the last year, have y ou been afraid of your partner or ex-partner? No 11/08/2020 Within the last year, have y ou been humiliated or emotionally abused in other ways by your partner or ex-partner? No Within the last year, have y ou been kicked, hit, slapped, or otherwise physically hurt by your partner or ex-partner? No 11/08/2020 Within the last year, have y ou been raped or forced to have any kind of sexual activity by your partner or ex-partner? No 11/08/2020 Social Connections Answer Date Recorded In a typical week, how many times do you talk on the phone with family, friends, or neighbors? More than three times a week 11/08/2020 How often do you get togethe r with friends or relatives? More than three times a week 11/08/2020 How often do you attend chur ch or denominational services? 1 to 4 times per year 11/08/2020 Do you belong to any clubs o r organizations such as religion groups, unions, fraternal or athletic groups, or school groups? Yes 11/08/2020 Attends Club or Organization Meetings Not on jeremy e 11/08/2020 Are you , , di vorced, , never , or living with a partner? 11/08/2020 Financial Resource Strain Answer Date R ecorded How hard is it for you to pa y for the very basics like food, housing, medical care, and heating? Not hard at all 11/08/2020 Food Insecurity Answer Date Recorded Within the past 12 months, y ou worried that your food would run out before you got the money to buy more. Never true 11/09/19 21 Within the past 12 months, t he food you bought just didn't last and you didn't have money to get more. Never true 11/08/2020 Transportation Needs Answer Date Record ed In the past 12 months, has l ack of transportation kept you from medical appointments or from getting medications? No 10/25 In the past 12 months, has l ack of transportation kept you from meetings, work, or from getting things needed for daily living? 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 No / Unsure 11/08/2020 12:29 PM CDT documented as of this encounter Plan of Treatment Upcoming Encounters Date Type Department Care Team (Late st Contact Info) Description 02/02/2025 10:15 AM CDT Office Visit [facility] Oncology and Hematology - [place] [address] [place] [address] Malik Devries MD [address] [facility] [address] [place] [address] documented as of this encounter Visit Diagnoses Not on filedocumented in this encounter Care Teams Senior Online Marketing Manager Relationship Specialty Start Date End Date Haley Fairbanks MD [address] [place] [id number] PCP - General Family Practice 11/08/20 documented as of this encounter
--- OUTSIDE RECORDS SUMMARY | 2025-01-06 02:33 | XMS_ITS | Clinical Summary ---
Author Organization [facility] Address [address] [address] Phone Care Team Providers Care Military Pay Clerk Name Role Phone Haley Fairbanks MD Primary Care Provider [phone] Giuliabernard Phlilip Paula DO Unavailable [phone] Allergies Active Allergy Reactions Criticality Noted Date Comments Penicillins Unknown 06/05/2016 Sulphasomidine Unknown 06/05/2016 Medications polyethylene glycol (MIRALAX) Powder Mix the entire bottle with 64 oz of a clear liquid. Use as directed by the office for colonoscopy prep. 255 g 0 6 Active levothyroxine (SYNTHROID) 125 MCG Tablet Take 125 mcg by mouth every morning. Active metoprolol tartrate (LOPRESSOR) 25 MG Tablet Take 25 mg by mouth 2 times daily. Active ezetimibe-simva statin (VYTORIN) 10-10 MG Tablet Take 1 Tab by mouth every evening. Active traZODone (DESYREL) 50 MG Tablet Take 50 mg by mouth nightly. Active Omeprazole 20 MG Tablet Delayed Response Take 20 mg by mouth every evening. Active Calcium Citrate-Vitamin D (CALCIUM + D PO) Take 1,600 Units by mouth 2 times daily. Active fexofenadine (EMANI) 180 MG Tablet Take 180 mg by mouth daily. Active Multiple Vitamin (MULTIVITAMINS PO) Take by mouth. Activ e Probiotic Product (PROBIOTIC DAILY PO) Take by mouth. Activ e Cholecalciferol (VITAMIN D-3 PO) Take 2,000 Units by mouth. Active Aspirin 81 MG Tablet Take 81 mg by mouth daily. Active cyclobenzaprine (FLEXERIL) 10 MG Tablet Take 10 mg by mouth 2 times daily. Active Immunizations Immunization Administration Dates Next Due Covid-19, Mrna, Lnp-s, Pf, 30 Mcg/0.3 Ml Dose (P ifeanyizer) 02/01/2021,12/22/2020 Family History Medical History Relation Name Comments Heart Attack Brother Heart Disease Brother Rheumatoid Arthritis Brother Cancer Father Lung Cancer Father Colon Cancer Maternal Grandmother Heart Attack Maternal Grandmother Colon Cancer Mother Relation Name Status Comments Brother Father Maternal Grandmother Mother Social History Tobacco Use Types Packs/Day Years Used Date Smoking Tobacco: Never Alcohol Use Standard Drinks/Week Comments Yes 0 (1 standard drink = 0.6 oz pur e alcohol) Comments Unknown Sex and Gender Information Value Date Recorded Sex Assigned at Not on file Legal Sex Female 12:00 AM CDT Gender Identity Not on file Sexual Orientation Not on file Plan of Treatment Health Maintenance Due Date Last Done Comments DEXA Bone Density 1950 Hepatitis C Virus (HCV) Screening 1950 TdaP Immunization 1950 Cologuard 1999 Immunochemical Fecal Occult Blood 1999 Mammogram 1999 Pneumococcal Immunization (50+ years) (2 of 2 - PPSV23) 06/11/2018 06/11/2017 Zoster Immunization (2 of 2) 08/27/2019 07/02/2019 Influenza Immunization (#1) 04/27/202404/27, 06/18/2019, 05/12/2018, Additional history exists SARS-COV-2 Immunization ( season) 2024 02/01/2021, 12/22/2020 Respiratory Syncytial Virus (RSV) Immunization (Adult) (1 - 1-dose 75+ series) 2024 Colonoscopy 05/25/2026 05/25/2016 Colorectal Cancer Screening 05/25/2026 05/25/2016 Pneumococcal Immunization Combined Discontinued 06/11/2017 Hepatitis B Immunization Aged Out No longer eligible based on patient's age to complete this topic Meningococcal Immunization (ACWY) Aged Out No longer eligible based on patient's age to complete this topic Rotavirus Immunization Aged Out No lo nger eligible based on patient's age to complete this topic Procedures Procedure Name Priority Date/Time Associated Diagnosis Comments COLONOSCOPY Routine 05/25/2016 from Last 3 Months or Most Recently Relevant to Health Maintenance Results * COLONOSCOPY (05/25/2016) Haley Fairbanks MD PROCEDURE/MINOR SURGICAL ORDERAB LES Final Result from Last 3 Months or Most Recently Relevant to Health Maintenance Insurance MEDICARE C [employer] Care Teams Military Pay Clerk Relationship Specialty [place] [address] [place] [id number] PCP - General Family Medicine 05/29/16 Phillip Nichols DO [address] [place] [address] Gastroenterology 05/29/16
--- OUTSIDE RECORDS SUMMARY | 2025-01-06 02:33 | XMS_ITS | Encounter Summary ---
Author Organization [facility] Address [address] [place] [address] Care Team Providers Care Supervisor Of Officials Name Role Phone Haley Fairbanks MD Primary Care Provider [phone] Reggie Rudolph MD Unavailable [phone] Reason for Visit * Reason Comments Coronary Artery Disease Hypertension Hyperlipidemia Palpitations Sleep Apnea 9 mo f/u Encounter Details Date Type Department Care Team (Late st Contact Info) Description 01/05/2025 9:15 AM CDT Office Visit [facility] [address] [place] [address] Carl Vick MD [address] [address] Coronary artery disease of [place] artery of [place] heart with stable angina pectoris (Primary Dx); Essential hypertension; Hyperlipidemia LDL goal <70; Palpitations; JAYSON (obstructive sleep apnea) Social History Tobacco Use Types Packs/Day Years [...] on file Legal Sex 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[employer] Gender Identity Female 05/23/2024 12:52 PM CDT Sexual Orientation Not on file documented as of this encounter Last Filed Vital Signs Vital Sign Reading Time Taken Comments Blood Pressure 118/80 01/05/2025 9:46 AM CDT Pulse 55 01/05/2025 9:20 AM CDT Temperature - - Respiratory Rate - - Oxygen Saturation 98% 01/05/2025 9:20 AM CDT Inhaled Oxygen Concentration - - Weight 73.9 kg (163 lb) 01/05/2025 9:20 AM CDT Height 160 cm (5' 3 ) 01/05/2025 9:20 AM CDT Body Mass Index 28.87 01/05/2025 9:20 AM CDT documented in this encounter Ordered Prescriptions Prescription Sig Dispense Quantity Refills Last Filled Start Date End Date aspirin 81 mg enteric coated tabletIndications: prevention of thrombosis Take 1 tablet (81 mg total) by mouth daily 30 tablet 11 01/05/2025 01/05/2026 documented in this encounter Progress Notes * Carl Vick MD - 01/05/2025 9:15 AM CDT Images from the original note were not included. [facility] DATE OF VISIT: 01/05/2025 CHIEF COMPLAINT Chief Complaint Patient presents with Coronary Artery Disease Hypertension Hyperlipidemia Palpitations Sleep Apnea 9 mo f/u HPI Randa Chamberlain is a 74 y.o. female with a history and electrocardiographically abnormal stress test. She underwent a cardiac catheterization in February 2012 showing some modest 30-40% mid RCA disease.She also has moderate sleep apnea and is on CPAP. She has been having issues with palpitations in the past but at last visit it was quiescent on metoprolol. Echocardiogram unremarkable. Follow-up note 06/20/2018: She denies any chest pain, shortness breath, syncope, presyncope, paroxysmal nocturnal dyspnea, orthopnea, edema or palpitations. She is compliant with her CPAP. She uses it nightly and is compliant and feels better with its use. Follow-up note 03/20/2019: She returns today with some worsening shortness of breath and palpitations. This has been present for about 1 month. She feels palpitations at rest and with exertion. It feels as if she has to take deep breaths. She denies any chest pain, syncope, paroxysmal nocturnal dyspnea, orthopnea, edema. Palpitations occur randomly and seem not to be helped by metoprolol. She is short of breath by simply walking and she feels her heart racing by doing simple things such as walking. She has not had any significant change in medication. She is not using caffeine significantly. Follow-up note 07/01/2019: She is a little dizzy today. She does not feel like she is going to passout no as she passed out but simply states she feels a little dizzy. Otherwise though she has been feeling quite well since I increased her metoprolol. She denies any chest pain, shortness of breath,syncope, paroxysmal nocturnal dyspnea, orthopnea, edema or palpitations Follow-up note 10/15/2019: She has some shortness of breath. She feels if she needs to take a deep breath at times. She denies any chest pain, syncope, presyncope, paroxysmal nocturnal dyspnea orthopnea, edema. She possibly has palpitations but she a difficult time feeling them Follow-up note 02/19/2020: She is feeling very well and denies any chest pain, shortness breath, syncope, presyncope, paroxysmal nocturnal dyspnea, orthopnea, significant edema or palpitations. Follow-up note 01/17/2021 Since last visit: Since last visit she had a left mastectomy secondary toDCIS. She denies any chest pain, syncope, presyncope, paroxysmal nocturnal dyspnea, orthopnea, edema. She does feel palpitations with exertion and has some persistent dyspnea on exertion. She states that walking to and from her mailbox will make her quite short of breath although it is a long walk she states. Follow-up note 12/01/2021: She has been dizzy but her dizziness is described as vertigo. The room will spin on her whenever she turns her head a certain way. She has no syncope, paroxysmal nocturnal dyspnea orthopnea, chest pain, shortness of breath, palpitations. No edema Office visit with PERSONNEL RECORDS CLERK 01/31/2022: Today's appointment was made after she called this morning to report chest pain that began 3 days prior. The 1st couple of days she reported a pain that would start in the middle of her chest and moved down to her stomach, a sensation like a pill was stuck while going down. She has some dizziness. Then it seemed to go away. But on the 3rd day the chest pain recurred after she ate her evening meal. This was more intense and felt like a grabbing pain. Belching anddrinking water actually made it feel worse. She came to the ER but because there was a long wait she left before being seen. Eventually the symptoms resolved around 10:30 p.m.. She slept in her recliner that night. Today she is feeling better. With these episodes she had no accompanying shortness of breath or diaphoresis. There was no correlation to physical activity. She has a history of GERD orsymptoms risk sensation of burning or feeling like the food in go down. These recent symptoms were d ifferent from that in the fact that it was more pain rate recently rather than burning. She has been taking omeprazole regularly. Follow-up note 01/05/2025 She denies any chest pain, shortness breath, syncope, presyncope, paroxysmal nocturnal dyspnea, orthopnea, edema or palpitations. MEDICAL HISTORY Left-sided breast cancer status post mastectomy Social History Tobacco Use Smoking status: Never Smoker Smokeless tobacco: Never Used Substance Use Topics Alcohol use: Yes Drug use: No Family History Problem Relation Age of Onset Colon cancer Mother Cancer, colon; Cause of : Cancer, colon Cancer Father Cancer; Cause of : Cancer Coronary artery disease Brother Coronary Artery Bypass Graft; Brain cancer Brother Brain tumor; Hypertension Sister Hypertension; MEDICATIONS Medication List Accurate as of January 05, 2025 9:46 AM. If you have any questions, ask your nurse or doctor. CONTINUE taking these medications aspirin 325 mg enteric coated tablet Commonly known as: Ecotrin Take 1 tablet (325 mg total) by mouth daily celecoxib 200 mg capsule Commonly known as: CeleBREX Take 1 capsule (200 mg total) by mouth 2 (two) times a day ezetimibe-simvastatin 10-40 mg per tablet Commonly known as: VYTORIN TAKE 1 TABLET BY MOUTH EVERY DAY IN THE EVENING fexofenadine 180 mg tablet Commonly known as: EMANI take 1 tablet by oral route every day levothyroxine 125 mcg tablet Commonly known as: SYNTHROID metoprolol tartrate 50 mg immediate release tablet Commonly known as: LOPRESSOR TAKE 1 TABLET BY MOUTH TWICE A DAY omeprazole 20 mg capsule Commonly known as: PriLOSEC Probiotic 10 billion cell capsule Generic drug: Lactobacillus acidophilus take 1 by Oral route once senna-docusate 8.6-50 mg Commonly known as: PERICOLACE Take 1 tablet by mouth 2 (two) times a day as needed for constipation tamoxifen 20 mg tablet Commonly known as: NOLVADEX traZODone 50 mg tablet Commonly known as: HILARIO UNABLE TO FIND Vitamin D3 50 mcg (2,000 unit) tablet Generic drug: cholecalciferol take 1 by Oral route 2 times every day zinc 50 mg tablet ALLERGIES Allergies Allergen Reactions Ampicillin Swelling and Rash Metrizamide Urticaria hives Penicillins Swelling Sulfa Rash Sulfasalazine Rash Sulfisomidine Rash REVIEW OF SYSTEMS Review of Systems Constitutional: Positive for malaise/fatigue. Negative for weight gain and weight loss. HENT: Negative for hearing loss. Eyes: Negative for blurred vision and visual disturbance. Cardiovascular: Negative for chest pain, claudication, dyspnea on exertion, irregular heartbeat, leg swelling, near-syncope, orthopnea, palpitations, paroxysmal nocturnal dyspnea and syncope. Respiratory: Positive for cough. Negative for hemoptysis, shortness of breath, snoring, sputum production and wheezing. Endocrine: Negative for cold intolerance, heat intolerance and polyuria. Hematologic/Lymphatic: Does not bruise/bleed easily. Skin: Negative for color change and rash. Musculoskeletal: Negative for falls, joint pain, joint swelling and myalgias. Gastrointestinal: Positive for heartburn. Negative for abdominal pain, nausea and vomiting. Genitourinary: Negative for dysuria. Neurological: Positive for dizziness. Negative for focal weakness, headaches, light-headedness, numbness and weakness. Psychiatric/Behavioral: Negative for depression. The patient is not nervous/anxious. Allergic/Immunologic: Negative for environmental allergies. PHYSICAL EXAM Blood pressure 118/80, pulse 55, height 160 cm (5' 3 ), weight 73.9 kg (163 lb), SpO2 98%. Body mass index is 28.87 kg/m??. Physical Exam Vitals reviewed. HENT: Head: Normocephalic and atraumatic. Nose: Nose normal. Eyes: General: No scleral icterus. Conjunctiva/sclera: Conjunctivae normal. Cardiovascular: Rate and Rhythm: Normal rate and regular rhythm. Pulses: Intact distal pulses. Heart sounds: Normal heart sounds. No murmur heard. No friction rub. No gallop. Pulmonary: Effort: Pulmonary effort is normal. No respiratory distress. Breath sounds: Normal breath sounds. No wheezing or rales. Chest: Chest wall: No tenderness. Abdominal: General: Bowel sounds are normal. There is no distension. Palpations: Abdomen is soft. Tenderness: There is no abdominal tenderness. Musculoskeletal: General: Normal range of motion. Cervical back: Neck supple. Skin: General: Skin is warm and dry. Neurological: Mental Status: She is alert and oriented to person, place, and time. Psychiatric: Mood and Affect: Mood normal. LABS AND OTHER DIAGNOSTIC TESTS Lab Results Component Value Date WBC 6.0 05/20/2024 HGB 13.4 05/20/2024 HCT 41.5 05/20/2024 MCV 100.2 (H) 05/20/2024 Chemistry Component Value Date/Time SODIUM 139 05/20/2024 1138 POTASSIUM 4.1 05/20/2024 1138 CHLORIDE 103 05/20/2024 1138 CO2 25 05/20/2024 1138 BUNSER 12 05/20/2024 1138 CREATININE 0.68 05/20/2024 1138 GLUCOSE 106 05/20/2024 1138 Component Value Date/Time CALCIUM 9.5 05/20/2024 1138 ALKPHOS 88 05/20/2024 1138 AST 24 05/20/2024 1138 ALT 18 05/20/2024 1138 BILITOT 0.4 05/20/2024 1138 Lab Results Component Value Date CHOL 179 03/21/2014 CHOL 200 02/12/2013 Lab Results Component Value Date HDL 61 03/21/2014 HDL 64 02/12/2013 LDL Date Value Ref Range Status 03/21/2014 90 <130 mg/dl Comment: Desirable range <100 mg/dL for patients with CHD or diabetes and <70 mg/dL for diabetic patients with known heart disease. 02/12/2013 104 <130 mg/dl Comment: Desirable range <100 mg/dL for patients with CHD or diabetes and <70 mg/dL for diabetic patients with known heart disease. ] No results found for: LDLCALC Lab Results Component Value Date TRIG 142 03/21/2014 TRIG 160 (H) 02/12/2013 Lab Results Component Value Date CHOLHDL 2.9 03/21/2014 CHOLHDL 3.1 02/12/2013 EKG September 2014: Normal sinus rhythm with sinus arrhythmia with frequent PACs. Poor R-wave progression. EKG 03/20/2019: Sinus rhythm/sinus arrhythmia with frequent PACs . Low voltage. Abnormal EKG EKG 10/15/2019: Sinus arrhythmia with frequent PACs poor R-wave progression. Abnormal EKG. Cardiac catheterization 03/12/2012: 30 To 40% mid RCA. Coronary circulation is tortuous. Luminal irregularities in the LAD Echo 11/02/2014: EF 60-65%. Mild LVH. Mild TR Echocardiogram April 18 2018: EF 65% grade 2 diastolic dysfunction, mild LVH, mild left atrial enlargement, mild TR Echo 02/01/2021 Normal left ventricular systolic function. No focal wall motion abnormalities. Normal left ventricular size. Mild concentric left ventricular hypertrophy. Impaired diastolic relaxation Grade I. Ejection fraction is measured at 68 %. There is mild enlargement of left atrium. Mild to moderate mitral valve regurgitation. Normal sinus rhythm. Technically difficult study with limited views. Definity contrast agent used. Compared to the Echo of 03/2019, there is moremitral regurgitation on this study. Holter February 2019 1. Underlying rhythm is sinus rhythm/ bradycardia with heart rate ranging between 47 beats per minute to 59 beats per minute. 2. Frequent ventricular and supraventricular ectopy was seen. 3. Ventricular ectopy in the form of isolated PVCs, bigeminy, trigeminy (total burden 10.4% for the duration of the study); supraventricular ectopy in the form of isolated PACs, atrial pairs, atrial runs (with a total burden of 8.5% for the duration of the study). 4. No symptoms were reported in the patient diary. Clinical correlation is recommended. MPI 05/31/2022 Sinus rhythm. No significant baseline ST segment abnormality. Non diagnostic ST changes with exercise at 97% MPHR. Findings do not meet strict criteria for ischemia. Exercise time 6 minutes, Mets 7.0. Correlate with myocardial perfusion imaging. Myocardial perfusion imaging is normal. There is hyperdynamic global left ventricular systolic function. Left Ventricular Ejection Fraction is 73 %. MPI 04/21/2024 Normal perfusion imaging. No definite fixed or reversible defects. A TID of 0.83 was automatically calculated. Global left ventricular function is normal. Left Ventricular Ejection Fraction is 68 %. Negative EKG portion of stress test. ASSESSMENT Diagnoses and all orders for this visit: Coronary artery disease of [place] artery of [place] heart with stable angina pectoris (CMS/HCC) (Primary) Asymptomatic Essential hypertension at goal here what has been elevated at other offices Hyperlipidemia LDL goal <70 at goal JAYSON (obstructive sleep apnea) Compliant with CPAP. Feels better. Palpitations Quiescent Gastroesophageal reflux disease without esophagitis PLAN/RECOMMENDATIONS Lipid panel recently showed an LDL of 53. Continue ezetimibe and simvastatin for hyperlipidemia andCAD Continue metoprolol for palpitations, PVCs, CAD hypertension. Home blood pressure monitoring is encouraged and up titration or additions to this regimen depending on results of home BP checks Follow-up in 6 months or sooner as clinically indicated. Carl Vick MD, [facility] documented in this encounter Plan of Treatment Not on file documented as of this encounter Visit Diagnoses Diagnosis Coronary artery disease of [place] artery of [place] heart with stable angina pectoris- Primary Essential hypertension Unspecified essential hypertension Hyperlipidemia LDL goal <70 Other and unspecified hyperlipidemia Palpitations JAYSON (obstructive sleep apnea) Obstructive sleep apnea (adult) (pediatric) documented in this encounter Discontinued Medications Medication Sig Discontinue Reason Start Date End Da te aspirin (Ecotrin) 325 mg enteric coated tabletIndications:preven tion of thrombosis Take 1 tablet (325 mg total) by mouth daily Duplicate order 06/09/2024 01/05/2025 documented as of this encounter Care Teams Supervisor Of Officials Relationship Specialty Start Date End Date Haley Fairbanks MD PCP - General 11/24/16 Reggie Rudolph MD [address] [place] [address] [address] [address] Surgeon Orthopedic Surgery 06/09/24 documented as of this encounter
--- OUTSIDE RECORDS SUMMARY | 2025-01-06 02:33 | XMS_ITS | Clinical Summary ---
Author Organization [facility] [place] [address] Address [address] [place] [address] Care Team Providers Care Paralegals Name Role Phone Mary Noriega MD Primary Care Provider [phone] Reggie Rudolph MD Unavailable Allergies Active Allergy Reactions Criticality Noted Date Comments Ampicillin Swelling,Rash Medium Metrizamide Urticaria Medium 03/12/2015 hives Penicillins Swelling Medium 12/07/2014 Sulfa Rash Medium 06/02/2024 Sulfasalazine Rash Medium 12/07/2014 Sulfisomidine Rash Medium 06/05/2016 Medications fexofenadine (EMANI) 180 mg tablet take 1 tablet by oral route every day 0 04/22/20 14 Active Lactobacillus acidophilus (PROBIOTIC) 10 billion cell capsule take 1 by Oral route once 0 0 04/22/20 14 Active cholecalciferol (VITAMIN D3) 2,000 unit tablet take 1 by Oral route 2 times every day 0 0 08/11/20 15 Active omeprazole (PriLOSEC) 20 mg capsule with evening meal 1 01/11/20 19 Active tamoxifen (NOLVADEX) 20 mg tablet Take 1 tablet (20 mg total) by mouth daily 11/09/19 21 Active zinc 50 mg tablet Take 50 mg by mouth daily Active ezetimibe-simva statin (VYTORIN) 10-40 mg per tabletIndicatio ns:Dyslipidemia TAKE 1 TABLET BY MOUTH EVERY DAY IN THE EVENING 90 tablet 1 02/09/20 23 Active levothyroxine (SYNTHROID) 125 mcg tablet Take 1 tablet (125 mcg total) by mouth nail technician before breakfast 11/09/19 24 Active celecoxib (CeleBREX) 200 mg capsuleIndicati ons:Postoperati ve Acute Pain Take 1 capsule (200 mg total) by mouth 2 (two) times a day 84 capsule 06/09/20 24 Active senna-docusate (PERICOLACE) 8.6-50 mg Take 1 tablet by mouth 2 (two) times a day as needed for constipation 60 tablet 2 06/09/20 24 Active traZODone (DESYREL) 50 mg tablet Take 1 tablet (50 mg total) by mouth nightly Active UNABLE TO FIND Med Name: Balance of Nature Fruits and Veggies, 1 of each daily in the am. Active metoprolol tartrate (LOPRESSOR) 50 mg immediate release tabletIndicatio ns:BUCIO (dyspnea on exertion),Palpi tations TAKE 1 TABLET BY MOUTH TWICE A DAY 180 tablet 2 09/15/19 25 Active aspirin 81 mg enteric coated tabletIndicatio ns:prevention of thrombosis Take 1 tablet (81 mg total) by mouth daily 30 tablet 11 01/06/20 25 026 Active aspirin (Ecotrin) 325 mg enteric coated tabletIndicatio ns:prevention of thrombosis Take 1 tablet (325 mg total) by mouth daily 42 tablet 06/09/20 24 025 Discontin ued(Dupli esperanza order) Active Problems Problem Noted Date Diagnosed Date Primary osteoarthritis of right hip 05/26/2024 History of COVID-19 12/01/2021 Hypothyroidism 04/11/2019 BUCIO (dyspnea on exertion) 03/20/2019 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 06/20/2018 Essential hypertension 06/20/2018 Hyperlipidemia LDL goal <70 06/20/2018 JAYSON (obstructive sleep apnea) 06/20/2018 Palpitations 06/20/2018 Gastroesophageal reflux disease without esophagi tis 06/20/2018 Abnormal cardiovascular stress test 01/10/2014 Overview (11/30/2016): Abnormal stress test Encounters Date Type Department Care Team Description 01/05/2025 9:15 AM CDT Office Visit [facility] Cardiology [address] [place] [address] Carl Vick MD Coronary artery disease of 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 (Primary Dx); Essential hypertension; Hyperlipidemia LDL goal <70; Palpitations; JAYSON (obstructive sleep apnea) 01/05/2025 Orders Only [facility] Cardiology [address] [place] [address] Ignacio Willams MD 10/09/2024 Telephone [facility] Cardiology [address] [place] [address] Carl Vick MD 10/09/2024 Telephone [facility] Gastroenterology [facility] Medical Office Building [address], [address] [place] [address] Liana Thomas RN GI imaging results from Last 3 Months Surgical History Surgery Date Site/Laterality Comments BREAST SURGERY Left Breast Mastectomy HYSTERECTOMY complete OTHER SURGICAL HISTORY 12/15/2014 micro lumbar decompression l3-4,4-5, discectomy l3-4 removal of epidural mass l4 EYE SURGERY Bilateral cataracts Medical History Medical History Date Comments Sleep apnea Hypertension HLD (hyperlipidemia) CAD (coronary artery disease) Palpitations GERD (gastroesophageal reflux disease) Hypothyroidism Cancer (HCC) left breast canc er Family History Medical History Relation Name Comments Coronary artery disease Brother 3 Catalina Pierson narmike Artery Bypass Graft; Brain cancer Brother 4 Ralph Brain tumor; Cancer Father 2 Cancer; Cause o f : Cancer Colon cancer Mother 2 Cancer, colon; Cause of : Cancer, colon Hypertension Sister 2 Hypertension; Relation Name Status Comments Brother 1 Catalina Alive Brother 2 Ralph Alive Brother 3 Catalina Brother 4 Ralph Father 1 (Age 66) Father 2 Mother 1 (Age 62) Mother 2 Sister 1 Alive Sister 2 Social History Tobacco Use Types Packs/Day Years Used Date Smoking Tobacco: Never Smokeless Tobacco: Never Tobacco Cessation:Counseling Given: Not Answered Alcohol Use Standard Drinks/Week Comments Yes 0 [...] on file 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 Gender Identity Female 05/23/2024 12:52 PM CDT Sexual Orientation Not on file Obstetrics History Last Filed Vital Signs Vital Sign Reading Time Taken Comments Blood Pressure 118/80 01/05/2025 9:46 AM CDT Pulse 55 01/05/2025 9:20 AM CDT Temperature 36.6 C (97.8 F) 06/09/2024 2:00 PM CDT Respiratory Rate 18 08/05/2024 10:03 AM 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 Oxygen Saturation 98% 01/05/2025 9:20 AM CDT Inhaled Oxygen Concentration - - Weight 73.9 kg (163 lb) 01/05/2025 9:20 AM CDT Height 160 cm (5' 3 ) 01/05/2025 9:20 AM CDT Body Mass Index 28.87 01/05/2025 9:20 AM CDT Plan of Treatment Health Maintenance Due Date Last Done Comments Colon Cancer Screening-Colonoscopy 1950 Depression Screening 1950 Hepatitis C Screening 1950 DTaP/Tdap/Td Vaccine (1 - Tdap) 1960 Hepatitis B Screening 1967 Zoster Vaccine (1 of 2) 1968 Well Visit 65+ 2014 Pneumococcal vaccine 65+ (2 of 2 - PPSV23) 08/06/2017 06/11/2017 Covid-19 Vaccine (3 - Pfizer risk series) 03/01/2021 02/01/2021, 12/22/2020 Osteoporosis Screening-Bone Density Scan 03/29/2023 03/29/2021, 03/29/2021 Influenza Vaccine (Season Ended) 2025 06/18/2019, 05/12/2018, 06/24/2015 Fall Risk Assessment 05/26/2025 05/26/2024 Breast Cancer Screening-Mammogram Discontinued 023, 05/13/2013 Medical Devices Implanted Type Area Band And Cuff Cutter Device Identifier Shelf Expiration Date Model / Serial / Lot [employer] Shell Acetabular Hip Porous 3 Hole Coated Emphasys 50mm Titanium [id number] - [id number] Implanted:Qty: 1 on 06/09/2024 by Reggie Rudolph MD at [facility] Right: Hip [employer] [id number] 04/26/2034 [id number] / / [id number] [employer] Liner Acetabular Hip Standard Emphasys Aox 16l64lt Polyethylene [id number] - [id number] Implanted:Qty: 1 on 06/09/2024 by Reggie Rudolph MD at [facility] Right: Hip [employer] [id number] 04/26/2029 [id number] / / [id number] [employer] [place] 6.5mm 25mm Acetabular Cancellous Screw Bone Sterile 1217--500 - [id number] Implanted:Qty: 1 on 06/09/2024 by Reggie Rudolph MD at [facility] Right: Hip [employer] [id number] 01/24/2034 1217-25-500 / / [id number] [employer] [place] 6.5mm 20mm Acetabular Cancellous Screw Bone Sterile 1217--500 - [id number] Implanted:Qty: 1 on 06/09/2024 by Reggie Rudolph MD at [facility] Right: Hip [employer] [id number] 04/26/2033 1217-20-500 / / [id number] [employer] Actis 99mm Collar Hip 2 08/09 High Offset Taper Stem Femoral [id number] - [id number] Implanted:Qty: 1 on 06/09/2024 by Reggie Rudolph MD at [facility] Right: Hip [employer] [id number] 02/23/2034 [id number] / / [id number] [employer] Articul/Sha 36mm Cementless Hip +5mm 08/09 Taper Head Femoral Latex Free [id number] - [id number] Implanted:Qty: 1 on 06/09/2024 by Reggie Rudolph MD at [facility] Right: Hip [employer] [id number] 12/24/2028 [id number] / / [id number] Procedures Procedure Name Priority Date/Time Associated Diagnosis Comments LIPID PANEL Routine 11/03/2024 11:47 AM CDT DIGITAL MAMMOGRAPHY Routine 05/13/2013 1 0:10 AM CDT from Last 3 Months or Most Recently Relevant to Health Maintenance Results * Lipid panel (11/03/2024 11:47 AM CDT) SCRIBED Cholesterol, Total 123 30 - 199 mg/dL [facility] SCRIB[facility] Triglycerides 81 <=149 mg/dL [facility] SCRIB[facility] HDL 54 >=40 mg/dL [facility] SCRIBED LDL 53 <=129 mg/dL [facility] Scribed Non-HDL Cholesterol 69 NONE mg/dL [facility] SCRIBED Total Cholesterol/HDL Ratio 2 NONE [facility] Blood us Historical Provider LAB BLOOD ORDERABLES Edit ed Result - Final [facility] * DIGITAL MAMMOGRAPHY (05/13/2013 10:10 AM CDT) Anatomical Region Laterality Modality Breast Mammography 05/13/2013 10:1 0 AM CDT Narrative 05/13/2013 10:58 PM CDT Screening Mamm Bi Acc#: [id number] DATE OF EXAM: May 13 2013 CLINICAL HISTORY: Screening. Performed by: thais RESULT: Superior-inferior and lateral oblique views of each breast were obtained using the low dose technique. There is a mild to moderate amount of fibroglandular tissue. The appearance is quite similar to the prior study of 05/07/12. A tiny mass might be obscured but none was established. There are a few vague nodular areas which are thought to be benign. Digital technology was employed plus computer-aided detection software (R2) was utilized in interpretation of these images. This facility utilizes a reminder system to notify patients of yearly mammograms. IMPRESSION: UNCHANGED APPEARANCE OF MAMMOGRAM WITH NO NEOPLASM IDENTIFIED. SUGGEST FOLLOWUP MAMMOGRAM IN ONE YEAR TO FURTHER ESTABLISH STABILITY. BI-RADS CATEGORY 2 - BENIGN FINDINGS Interpreting Physician: ROGERIO SPARKS M.D. Read on: May 13 2013 12:04P Transcribed by: esther On: May 13 2013 12:04P Approved Electronically by: ROGERIO SPARKS M.D. on: May 13 2013 10:58P Ordering DR: MARY NORIEGA Attending DR: MARY NORIEGA Procedure Note Provider, MD Ignacio - 12/17/2016 Screening Mamm Bi Acc#: [id number] DATE OF EXAM: May 13 2013 CLINICAL HISTORY: Screening. Performed by: thais RESULT: Superior-inferior and lateral oblique views of each breast were obtainedusing the low dose technique. There is a mild to moderate amount offibroglandular tissue. The appearance is quite similar to the prior studyof 05/07/12. A tiny mass might be obscured but none was established.There are a few vague nodular areas which are thought to be benign.Digital technology was employed plus computer-aided detection software(R2) was utilized in interpretation of these images. This facilityutilizes a reminder system to notify patients of yearly mammograms. IMPRESSION: UNCHANGED APPEARANCE OF MAMMOGRAM WITH NO NEOPLASM IDENTIFIED. SUGGESTFOLLOWUP MAMMOGRAM IN ONE YEAR TO FURTHER ESTABLISH STABILITY. BI-RADSCATEGORY 2 - BENIGN FINDINGS Interpreting Physician: ROGERIO SPARKS M.D. Read on: May 13 201312:04P Transcribed by: esther On: May 13 2013 12:04P Approved Electronically by: ROGERIO SPARKS M.D. on: May 13 201310:58P Ordering DR: MARY NORIEGA Attending DR: MARY NORIEGA Historical Provider MD CHEN MAMMO PROCEDURES Pamela waddell Result from Last 3 Months or Most Recently Relevant to Health Maintenance Insurance [employer] MEDICARE [facility] MEDICARE [facility] MEDICARE Advance Directives For more information, please contact: [phone] * Full Code (Latest Code Status on File) Date Activated Date Inactivated Comments 06/09/2024 11:08 AM 06/09/2024 6:24 PM Care Teams Paralegals Relationship Specialty Start Date End Date Mary Noriega MD PCP - General 11/24/16 Reggie Rudolph MD [address] [place] [address] DR F[address] [address] [place] [id number] Surgeon Orthopedic Surgery 06/09/24
--- OUTSIDE RECORDS SUMMARY | 2025-01-06 02:33 | XMS_ITS | Referral Summary ---
Author Organization [facility] [place] [address] [place] [address] [address] [place] [address] Care Team Providers Care Finish Mill Operator Name Role Phone Mary Noriega MD Primary Care Provider [phone] Reggie Rudolph MD Unavailable [phone] Encounters Date Type Department Care Team Description 01/05/2025 Orders Only [facility] Cardiology [address] [place] [address] [address] [place] [address] ProviderIgnacio MD 01/05/2025 9:15 AM CDT Office Visit [facility] Cardiology [address] [place] [address] [address] [place] [address] Carl Vick MD Coronary artery disease of [place]aim[place] artery of [place] heart with stable angina pectoris (Primary Dx); Essential hypertension; Hyperlipidemia LDL goal <70; Palpitations; JAYSON (obstructive sleep apnea) 10/09/2024 Telephone [facility] Cardiology [address] [place] [address] [address] [place] [address] Carl Vick MD 10/09/2024 Telephone [facility]enter[facility] [address] [facility] [address] [place] [address] Liana Thomas, COSMO GI imaging results from Last 3 Months Allergies Active Allergy Reactions Criticality Noted Date [...] 1 tablet (125 mcg total) by mouth speech therapist early intervention before breakfast 11/09/19 24 Active celecoxib (CeleBREX) [...] artery disease of n ative artery of napaim[place] heart with stable angina pectoris 06/20/2018 Essential hypertension 06/20/2018 Hyperlipidemia LDL goal <70 06/20/2018 JAYSON (obstructive sleep apnea) 06/20/2018 Palpitations 06/20/2018 Gastroesophageal reflux disease without esophagi tis 06/20/2018 Abnormal cardiovascular stress test 01/10/2014 Overview (11/30/2016): Abnormal stress test Social History Tobacco Use Types Packs/Day Years [...] on file 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 Gender Identity Female 05/23/2024 12:52 PM CDT Sexual Orientation Not on file Last Filed Vital Signs Vital Sign Reading Time Taken Comments Blood Pressure 118/80 01/05/2025 9:46 AM CDT Pulse 55 01/05/2025 9:20 AM CDT Temperature 36.6 C (97.8 F) 06/09/2024 2:00 PM CDT Respiratory Rate 18 08/05/2024 10:03 AM 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 Oxygen Saturation 98% 01/05/2025 9:20 AM CDT Inhaled Oxygen Concentration - - Weight 73.9 kg (163 lb) 01/05/2025 9:20 AM CDT Height 160 cm (5' 3 ) 01/05/2025 9:20 AM CDT Body Mass Index 28.87 01/05/2025 9:20 AM CDT Plan of Treatment Not on file Medical Devices Implanted Type Area Elocution Teacher Device Identifier Shelf Expiration Date Model / Serial / Lot [employer] Shell Acetabular Hip Porous 3 Hole Coated Emphasys 50mm Titanium [id number] - [id number] Implanted:Qty: 1 on 06/09/2024 by Reggie Rudolph MD at [facility] Right: Hip [employer] [id number] 04/26/2034 [id number] / / [id number] [employer] Liner Acetabular Hip Standard Emphasys Aox 12t97zk Polyethylene [id number] - [id number] Implanted:Qty: 1 on 06/09/2024 by Reggie Rudolph MD at [facility] Right: Hip [employer] [id number] 04/26/2029 [id number] / / [id number] Dep[employer] [place] 6.5mm 25mm Acetabular Cancellous Screw Bone Sterile 1217-- - [id number] Implanted:Qty: 1 on 06/09/2024 by Reggie Rudolph MD at [facility] Right: Hip [employer] [id number] 01/24/2034 1217--500 / / [id number] [employer] [place] 6.5mm 20mm Acetabular Cancellous Screw Bone Sterile 1217--500 - [id number] Implanted:Qty: 1 on 06/09/2024 by Reggie Rudolph MD at [facility] Right: Hip [employer] [id number] 04/26/2033 1217--500 / / [id number] [employer] Actis 99mm Collar Hip 2 08/09 High Offset Taper Stem Femoral [id number] - [id number] Implanted:Qty: 1 on 06/09/2024 by Reggie Rudolph MD at [facility] Right: Hip [employer] [id number] 02/23/2034 [id number] / / [id number] [employer] Articul/Sha 36mm Cementless Hip +5mm 08/09 Taper Head Femoral Latex Free [id number] - [id number] Implanted:Qty: 1 on 06/09/2024 by Reggie Rudolph MD at [facility] Right: Hip [employer] [id number] 12/24/2028 [id number] / / [id number] Procedures Procedure Name Priority Date/Time Associated Diagnosis [...] 10:58 PM CDT Screening Mamm Bi Acc#: [id number] DATE OF EXAM: May 13 2013 CLINICAL [...] Ignacio - 12/17/2016 Screening Mamm Bi Acc#: [id number] DATE OF EXAM: May 13 2013 CLINICAL [...] Historical Provider MD CHEN MAMMO PROCEDURES Pamela l Result from Last 3 Months or Most Recently Relevant to Health Maintenance Insurance T MEDICARE AETNA MEDICARE AET[employer] MEDICARE Advance Directives For more information, please contact: [phone] * Full Code (Latest Code Status on File) Date Activated Date Inactivated Comments 06/09/2024 11:08 AM 06/09/2024 6:24 PM Care Teams Finish Mill Operator Relationship Specialty Start Date End Date Mary Noriega MD PCP - General 11/24/16 Reggie Rudolph MD [address] [facility] [address] [address] [place] [address] Surgeon Orthopedic Surgery 06/09/24
--- OUTSIDE RECORDS SUMMARY | 2025-01-06 02:33 | XMS_ITS | Clinical Summary ---
[facility] Address [address] [place] [address] Care Team Providers Care Hair Boiler Name Role Phone Haley Fairbanks MD Primary Care Provider [phone] Allergies Active Allergy Reactions Criticality Noted Date Comments Iodine And Iodide Containing Products Hives High 11/08/2020 Penicillins Unknown 12/07/2014 Sulfasalazine Unknown 12/07/2014 Sulfisomidine Unknown 06/05/2016 Medications aspirin (ECOTRIN EC) 81 mg Tablet, Delayed Release (E.C.) Take 81 mg by mouth. Active traZODone (DESYREL) 50 mg tablet Take 50 mg by mouth daily at bedtime. Active omeprazole magnesium (PriLOSEC) 20 mg Tablet, Delayed Release (E.C.) Take 20 mg by mouth. Active metoprolol tartrate (LOPRESSOR) 50 mg tablet TAKE 1 TABLET BY MOUTH TWICE DAILY 1 Active levothyroxine 125 mcg tablet Take 125 mcg by mouth. 6 times a week then 137 for the seventh day Active ibuprofen (MOTRIN) 800 mg tablet Take 800 mg by mouth every 6 hours as needed. Active fluticasone propionate (FLONASE) 50 mcg/spray [place], Suspension nasal inhaler 2 SPRAY NASAL DAILY ADMINISTER INTO EACH NOSTRIL 0 Active fexofenadine (EMANI) 180 mg tablet Take 180 mg by mouth. Active ezetimibe-simva statin (VYTORIN) 10-40 mg tablet TAKE 1 TABLET BY MOUTH EVERY DAY IN THE EVENING 1 Active cholecalciferol , Vitamin D3, 50 mcg (2,000 unit) Tablet Take 2,000 Units by mouth. Active acetaminophen (TYLENOL) 500 mg tablet Take 500 mg by mouth every 4 hours as needed. Active L. acidophilus-L. rhamnosus (Probiotic) 15 billion cell Capsule Take by mouth. Activ e Multivitamins-C v-Tlod-Scdafphw (Multiple Vitamin, Womens) Tablet Take by mouth. Active meloxicam (MOBIC) 15 mg tablet 1 Active omeprazole (PriLOSEC) 20 mg Capsule, Delayed Release(E.C.) TAKE 1 CAPSULE BY MOUTH EVERY DAY 1 Active zinc 50 mg Tablet Take 50 mg by mouth daily. Active tamoxifen (NOLVADEX) 20 mg tablet Take 1 Tablet (20 mg) by mouth daily. 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 Encounters Date Type Department Care Team Description 11/12/2024 External Device Data STL ABSTRACTION Provider, Abstract 11/01/2024 External Device Data STL ABSTRACTION Provider, Abstract 10/31/2024 External Device Data STL ABSTRACTION Provider, Abstract 10/28/2024 External Device Data STL ABSTRACTION Provider, Abstract 10/14/2024 External Device Data STL ABSTRACTION Provider, Abstract from Last 3 Months Family History Medical History Relation Name Comments Heart Disease Brother 1 Prostate Cancer Brother 1 Heart Disease Brother 2 Cancer Father Colon Cancer Mother Relation Name Status Comments Brother 1 Alive Brother 2 Alive Daughter 1 Alive Daughter 2 Alive Father Mother colon metast. t o Liver Sister Alive Social History Tobacco Use Types Packs/Day Years [...] week 11/08/2020 How often do you attend [facility]? 1 to 4 times per year 11/08/2020 Do you belong to any clubs o r organizations such as cheondoism groups, unions, fraPact Fitness or athletic groups, or school groups? 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 Gender Identity Not on file Sexual Orientation Not on file Last Filed Vital Signs Vital Sign Reading Time Taken Comments Blood Pressure 129/70 08/01/2024 9:48 AM MATERIAL CHASER Pulse 51 08/01/2024 9:48 AM MATERIAL CHASER Temperature 36.5 C (97.7 F) 08/01/2024 9:48 AM MATERIAL CHASER Respiratory Rate 16 08/01/2024 9:48 AM MATERIAL CHASER Oxygen Saturation 97% 08/01/2024 9:48 AM MATERIAL CHASER Inhaled Oxygen Concentration - - Weight 75.8 kg (167 lb) 08/01/2024 9:48 AM MATERIAL CHASER Height 161.3 cm (5' 3.5 ) 02/13/2022 10:50 AM CD T Body Mass Index 29.12 02/13/2022 10:50 AM CDT Plan of Treatment Upcoming Encounters Date Type Department Care Team (Late st Contact Info) Description 02/02/2025 10:15 AM CDT Office Visit [facility] Oncology and Hematology - [place] [address] [facility] [address] [place] [address] Malik Devries MD [address] [facility] [address] [place] [address] Health Maintenance Due Date Last Done Comments DTAP/TDAP/TD VACCINES (1 - Tdap) 1969 PNEUMOCOCCAL VACCINE 50+ YEA RS (1 of 2 - PCV) 1968 FIT-DNA Q 3 years 1994 FIT/FOBT Q 1 year 1994 Flex Sig/CT Colonography Q 5 years 1994 ZOSTER VACCINE (1 of 2) 1999 INFLUENZA VACCINE (#1) 2024 COVID-19 Vaccine (3 - 2023- season) 04/27/202403/2021, 12/22/2020 RSV VACCINE (60+ or ) (1 - 1-dose 75+ series) 2024 OSTEOPOROSIS SCREENING 03/29/2026 , 03/29/2021, 05/07/2018 COLORECTAL SCREENING 05/25/2026 05/25/2016, 05/25/20 16 Colorectal Cancer Screening 05/25/2026 Procedures Procedure Name Priority Date/Time Associated Diagnosis Comments XR DEXA BONE DENSITY AXIAL 1 OR MORE SITES Routine 03/29/2021 Osteoporosis, unspecified osteoporosis type, unspecified pathological fracture presence from Last 3 Months or Most Recently Relevant to Health Maintenance Results * XR DEXA BONE DENSITY AXIAL 1 OR MORE SITES (03/29/2021) Anatomical Region Laterality Modality Other us Malik Devries MD DIAGNOSTIC IMAGING ORDERABLES F inal Result from Last 3 Months or Most Recently Relevant to Health Maintenance Insurance AETNA [facility] MCR AETNA [facility] Address: [facility] [id number] [place] [address] AETNA [facility] POS II Care Teams Hair Boiler Relationship Specialty Start Date End Date Haley Fairbanks MD [address] [place] [id number] PCP - General Family Practice 11/08/20
--- OUTSIDE RECORDS SUMMARY | 2025-01-06 02:33 | XMS_ITS | Clinical Summary ---
Author Organization [facility] Address [facility] [place] [address] Care Team Providers Care Vision Care Associate Name Role Phone Brannon Amador MD Unavailable [phone] Haley Fairbanks MD Primary Care Provider [phone] Vale Fonseca RN Unavailable Shy Wei RN Unavailable [phone] Source Comments [facility],non-owned Affiliates and Associated Physician Practices is amultiple site organization consisting of ambulatory clinics and hospital sitesin [place], [place], [place] and [place]. This disclosure is being madepursuant to the Care Everywhere program and may not contain all information available regarding this patient. Last updated 18.[facility] Allergies Active Allergy Reactions Criticality Noted Date Comments Contrast-Iodinated Agents For Ct/Other Urticaria 03/12/2015 hives Penicillins 12/07/2014 Sulfa Drugs 12/07/2014 Medications * Be aware that medications may not be up to date on this document. Alwaysverify current medications with the patient. VYTORIN 10-10 MG tablet Take 1 Tab by mouth at bedtime. 3 5 Active [facility] ALLERGY RELIEF 180 MG tablet 180 mg once daily. 3 5 Active levothyroxine (SYNTHROID) 125 MCG tablet 1 5 Active metoprolol tartrate IR (LOPRESSOR) 25 MG tablet 2 times daily. 11 5 Active omeprazole (PRILOSEC) 20 MG capsule 20 mg 2 times daily. 2 5 Active traZODone (DESYREL) 50 MG tablet Take 75 mg by mouth at bedtime. 2 5 Active levothyroxine (LEVOTHROID) 112 MCG tablet Take 112 mcg by mouth daily before breakfast. Active vitamin D, cholecalcifero l, 2000 UNITS tablet Take 2,000 Units by mouth 2 times daily. Active aspirin (ASPIRIN) 81 MG tablet Take 81 mg by mouth once daily. Active acetaminophen (TYLENOL) 500 MG tablet Take 500 mg by mouth every 4 hours as needed for Fever or Pain. Maximum allowable Acetaminophen amount = 4 Grams (4000 mg) / 24 hours. Active Probiotic Product (PROBIOTIC DAILY PO) Take by mouth. Activ e Calcium Citrate-Vitami n D (CALCIUM CITRATE + D3 PO) Take by mouth. Activ e ibuprofen (MOTRIN) 800 MG tablet Take 800 mg by mouth every 6 hours as needed for Pain. Active meclizine (ANTIVERT) 25 MG tablet Take 25 mg by mouth 3 times daily as needed for Dizziness Active baclofen (LIORESAL) 10 MG tablet Take 1 Tab by mouth 3 times daily as needed for Muscle Spasms May cause drowsiness. 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 Family History Medical History Relation Name Comments Arthritis - Rheumatoid Brother 2 OR Brother 3 Arthritis Brother 4 Tumor Brother 5 Other Child 2 IRREGULAR HEART BEAT Scoliosis Child 3 Cancer Father Cancer - Colon Mother High Blood Pressure Sister 2 Relation Name Status Comments Brother 1 Alive X2 Brother 2 Brother 3 Brother 4 Brother 5 Child 1 Alive X2 Child 2 Child 3 Father (Age 66) Mother (Age 62) Sister 1 Alive X1 Sister 2 Social History Tobacco Use Types Packs/Day Years Used Date Smoking Tobacco: Never Smokeless Tobacco: Never Tobacco Cessation:Counseling Given: No Alcohol Use Standard Drinks/Week Comments Yes 0 (1 standard drink = 0.6 oz pur e alcohol) OCCASIONALLY 1-2 PER MONTH Comments No Sex and Gender Information Value Date Recorded Sex Assigned at Not on file Legal Sex Female 8:33 AM CDT Gender Identity Not on file Sexual Orientation Not on file Occupation Industry Job Start Date Job End Date RETIRED Not on file Not on file Not on file Last Filed Vital Signs Vital Sign Reading Time Taken Comments Blood Pressure 130/85 03/15/2015 12:17 PM CDT Pulse 60 03/15/2015 12:17 PM CDT Temperature 36.7 C (98 F) 03/15/2015 12:17 PM CDT Respiratory Rate 18 03/15/2015 12:17 PM CDT Oxygen Saturation 100% 03/15/2015 12:17 PM CDT Inhaled Oxygen Concentration 21% 12/16/2014 2 :00 AM CDT Weight 71.7 kg (158 lb) 03/15/2015 9:42 AM CDT Height 162.6 cm (5' 4.02 ) 03/15/2015 9:42 AM CD T Body Mass Index 27.11 03/15/2015 9:42 AM CDT Plan of Treatment Health Maintenance Due Date Last Done Comments BONE DENSITY TESTING 1950 COLOGUARD (AGES 45-75) - COL ON CA SCREENING 1949 COLON MONITORING 1949 COLONOSCOPY - COLON CA SCREENING 1949 CT COLONOGRAPHY - COLON CA SCREENING 1950 Colorectal Cancer Screening 1949 FIT - COLON CA SCREENING 1949 FLEX SIG - COLON CA SCREENING 1950 MEDICARE AWV 12 MONTHS 1949 HEPATITIS C SCREENING 04/24/1967 DTAP/TDAP/TD VACCINES (1 - Tdap) 1968 PNEUMOCOCCAL VACCINE 50+ (1 of 1 - PCV) 1999 ZOSTER VACCINE (1 of 2) 1999 MAMMOGRAM 05/13/2015 05/13/2013 COVID-19 VACCINE ( - 2023-2 5 season) 2024 Respiratory Syncytial Virus (RSV) Vaccine Pt: or over 60 yrs (1 - 1-dose 75+ series) 2024 DEPRESSION SCREENING 08/27/2024 INFLUENZA VACCINE (Season Ended) 2025 HEPATITIS B VACCINE Aged Out No longe r eligible based on patient's age to complete this topic HIB VACCINE Aged Out No longer eligi ble based on patient's age to complete this topic HPV VACCINE Aged Out No longer eligi ble based on patient's age to complete this topic MENINGOCOCCAL (Group B) VACC INE SHARED DECISION-MAKING Aged Out No longer eligibl e based on patient's age to complete this topic MENINGOCOCCAL GROUPS A/C/Y/W VACCINE Aged Out No longer eligible b ased on patient's age to complete this topic Insurance MEDICARE [facility] [place] [address] COMMERCIAL GENERIC COMMERCIAL GENERIC [employer] Advance Directives * Full Code (Latest Code Status on File) Date Activated Date Inactivated Comments 02/11/2015 4:59 PM 02/12/2015 1:29 PM * Full Code Date Activated Date Inactivated Comments 12/15/2014 12:10 PM 12/16/2014 3:16 PM Care Teams Vision Care Associate Relationship Specialty Start Date End Date Haley Fairbanks MD [address] [place] [address] PCP - General Family Medicine 12/07/14 Brannon Amador MD Referring Physician Orthopedic Surgery 11/27/14 Vale Fonseca, RN Motor Coach [employer] 12/16/14 Shy Wei, COSMO [employer] 02/11/15
[2025-01-06 08:49] VITALS: BP 140/68; PULSE 56; RESP 18; TEMP 36.5; O2SAT 100; BMI 28.4
[2025-01-06] MEDS: LACTATED RINGERS 1,000 ML 150 ML IV CONT (09:12)
--- NOTE | 2025-01-06 09:14 | P.PNAN_ITS ---
Anes - Initial Pre Proc Eval Procedure: Operation Date: 01/06/25 09:30 Proposed Procedures p Colonoscopy - Keegan Arnold MD Date/Time: 01/06/25 09:14 Surgeon: Keegan Arnold MD Pre Op Diagnosis: history of colon polyps, unspecified Patient Data Age: 74 Gender: F Height: 1.6 m Weight: 72.9 kg Last Vital Signs Temp 36.5 C 01/06/25 08:49 Pulse 56 L 01/06/25 08:49 Resp 18 01/06/25 08:49 BP 140/68 01/06/25 08:49 Pulse Ox 100 01/06/25 08:49 O2 Del Method Room Air 01/06/25 08:49 Allergies Allergy/AdvReac Type Severity Reaction Status Date / Time Penicillins Allergy Unknown SWELLING Verified 01/06/25 08:48 AND ITCHING Sulfa (Sulfonamide Allergy Unknown Unknown Verified 01/06/25 08:48 Antibiotics) Home Medications ?Medication ?Instructions ?Recorded ?Confirmed ?Type aspirin 81 mg tablet,delayed 81 mg PO QPM 05/12/20 12/26/24 History release (Adult Aspirin Regimen) fexofenadine 180 mg tablet 180 mg PO DAILY 05/12/20 12/26/24 History (Allergy Relief (fexofenadine)) metoprolol tartrate 50 mg tablet 50 mg PO Q12H 05/12/20 01/06/25 History cholecalciferol (vitamin D3) 100 100 mcg PO DAILY 09/16/20 12/26/24 History mcg (4,000 unit) capsule zinc 50 mg tablet 50 mg PO DAILY 09/16/20 12/26/24 History Lactobacillus acidophilus 10 10,000 mmu cells PO QPM 10/14/20 12/26/24 History billion cell capsule (Probiotic) tamoxifen 20 mg tablet 20 mg PO DAILY 01/05/21 12/26/24 History glucosamine-chondroitin 250 mg-200 2 tablet PO TID 09/01/21 12/26/24 History mg tablet (Osteo Bi-Flex) fluticasone propionate 50 2 spray intranasal DAILY #9.9 mL 10/04/22 12/26/24 Rx mcg/actuation nasal spray,suspension meclizine 25 mg tablet 25 mg PO TID PRN dizziness #30 tabs 09/27/23 12/26/24 Rx benzonatate 100 mg capsule 100 mg PO TID PRN cough #30 caps 02/21/24 12/26/24 Rx levothyroxine 125 mcg tablet 125 mcg PO DAILY #90 tabs 02/21/24 01/06/25 Rx nitroglycerin 0.4 mg sublingual 0.4 mg sublingual Q5M PRN chest 04/10/24 12/26/24 Rx tablet pain #25 tabs tramadol 50 mg tablet 50 mg PO Q6H PRN pain #60 tabs 08/06/24 12/26/24 Rx trazodone 50 mg tablet 75 mg (1.5 x 50 mg) PO HS #135 tabs 08/12/24 12/26/24 Rx omeprazole 20 mg capsule,delayed 20 mg PO DAILY #90 caps 08/15/24 12/26/24 Rx release fluticasone furoate 200 1 inh inhalation DAILY #30 ea 10/16/24 12/26/24 Rx mcg/actuation blister powder for inhalation (Arnuity Ellipta) meloxicam 15 mg tablet 15 mg PO DAILY #90 tabs 10/16/24 12/26/24 Rx ezetimibe 10 mg-simvastatin 40 mg 1 tablet PO QPM #90 tabs 01/06/25 Rx tablet Patient hx anesthesia problems: none Family hx anesthesia problems: none Results Review: All pre-operative results and documents have been reviewed as part of the pre- operative evaluation. [facility] Past Medical History Medical History Hepatitis C antibody test negative Allergic rhinitis Family history of colon cancer in mother Cystic mass of pancreas Thyroid nodule Breast cancer JAYSON (obstructive sleep apnea) CPAP Prediabetes Discoid lupus Normal colonoscopy (~2014) Coronary arteriosclerosis Osteopenia Hiatal hernia Colon polyp Hypothyroidism HLD (hyperlipidemia) Hypertension Surgical History Surgical History History of right hip replacement (~06/15/24) History of mastectomy 10/20/20 Left simple mastectomy, Left axillary sentinel lymph node biopsy History of hemorrhoidectomy History of tubal ligation History of excision of mass benign tumor, groin History of tonsillectomy History of cardiac cath History of back surgery H/O: hysterectomy Family History Family History Father , age 65 Cancer Mother , age 59 Carcinoma of colon Grandparent Carcinoma of colon Cerebrovascular accident Acute myocardial infarction Sibling Acute myocardial infarction Other Diabetes mellitus Family history of coronary artery disease Family history of malignant neoplasm Hypertension Social History Social History Smoking status: Never smoker Tobacco type: cigarettes Second hand tobacco smoke exposure: No Alcohol intake: current Drinks per week: 3 Alcohol use details: 2 beers a week in summer Substance use: never Substance use type: does not use Lack of Transportation: No Lack of Food: Never True Current Housing: I Have Housing Concerned About Future Housing: No Difficulty Paying Gas/Electric Bills: No Difficulty Paying for Meds: No Currently Unemployed: No Education: High School Diploma/GED Difficulty w/ Childcare or Family Care: No Living arrangements: alone Occupation/Education: retired Gender identity (if verbalized by the patient): Female Sexual Orientation (if Verbalized by the Patient): Straight or Heterosexual Spiritual care concerns: No Anes - Eval Final PreProcedure Day of Procedure 01/06/25 09:14 Patient weight: overweight Heart: regular rate and rhythm Lungs: clear to auscultation Airway: Mallampati scale class II Neurological: alert and oriented Last oral intake: >/= 8 hours ASA classification: III Emergent: no Anesthetic plan: proceed Anesthesia type and monitoring: general GIVS and standard monitoring Results Review: All pre-operative results and documents have been reviewed as part of the pre- operative evaluation. Informed Consent: The patient's anesthetic plan and its attendant risks and benefits were discussed with the patient/family/POA. Questions were solicited and answers provided to the satisfaction of the patient/family/POA.
--- NOTE | 2025-01-06 09:30 | PM.HPGS ---
History of Present Illness History of Present Illness Consent: Risks, benefits, and alternatives have been discussed and questions answered. Patient agrees to proceed with procedure. Chief complaint: history of colon polyps, unspecified Narrative: Randa Chamberlain is a 74 year old female with colon polyps 3 years ago, mother and grandparent had colon cancer. She is getting colonoscopies every 3 years Review of Systems Review of Systems: All systems reviewed & are unremarkable except as noted in HPI and below PMFSH Past Medical History Medical History Hepatitis C antibody test negative Allergic rhinitis Family history of colon cancer in mother Cystic mass of pancreas Thyroid nodule Breast cancer JAYSON (obstructive sleep apnea) CPAP Prediabetes Discoid lupus Normal colonoscopy (~2014) Coronary arteriosclerosis Osteopenia Hiatal hernia Colon polyp Hypothyroidism HLD (hyperlipidemia) Hypertension Surgical History Surgical History History of right hip replacement (~06/15/24) History of mastectomy 10/20/20 Left simple mastectomy, Left axillary sentinel lymph node biopsy History of hemorrhoidectomy History of tubal ligation History of excision of mass benign tumor, groin History of tonsillectomy History of cardiac cath History of back surgery H/O: hysterectomy Family History Family History Father , age 65 Cancer Mother , age 59 Carcinoma of colon Grandparent Carcinoma of colon Cerebrovascular accident Acute myocardial infarction Sibling Acute myocardial infarction Other Diabetes mellitus Family history of coronary artery disease Family history of malignant neoplasm Hypertension Social History Social History Smoking status: Never smoker Tobacco type: cigarettes Second hand tobacco smoke exposure: No Alcohol intake: current Drinks per week: 3 Alcohol use details: 2 beers a week in summer Substance use: never Substance use type: does not use Lack of Transportation: No Lack of Food: Never True Current Housing: I Have Housing Concerned About Future Housing: No Difficulty Paying Gas/Electric Bills: No Difficulty Paying for Meds: No Currently Unemployed: No Education: High School Diploma/GED Difficulty w/ Childcare or Family Care: No Living arrangements: alone Occupation/Education: retired Gender identity (if verbalized by the patient): Female Sexual Orientation (if Verbalized by the Patient): Straight or Heterosexual Spiritual care concerns: No Meds Home Medications and Allergies Home Medications ?Medication ?Instructions ?Recorded ?Confirmed ?Type aspirin 81 mg tablet,delayed 81 mg PO QPM 05/12/20 12/26/24 History release (Adult Aspirin Regimen) fexofenadine 180 mg tablet 180 mg PO DAILY 05/12/20 12/26/24 History (Allergy Relief (fexofenadine)) metoprolol tartrate 50 mg tablet 50 mg PO Q12H 05/12/20 01/06/25 History cholecalciferol (vitamin D3) 100 100 mcg PO DAILY 09/16/20 12/26/24 History mcg (4,000 unit) capsule zinc 50 mg tablet 50 mg PO DAILY 09/16/20 12/26/24 History Lactobacillus acidophilus 10 10,000 mmu cells PO QPM 10/14/20 12/26/24 History billion cell capsule (Probiotic) tamoxifen 20 mg tablet 20 mg PO DAILY 01/05/21 12/26/24 History glucosamine-chondroitin 250 mg-200 2 tablet PO TID 09/01/21 12/26/24 History mg tablet (Osteo Bi-Flex) fluticasone propionate 50 2 spray intranasal DAILY #9.9 mL 10/04/22 12/26/24 Rx mcg/actuation nasal spray,suspension meclizine 25 mg tablet 25 mg PO TID PRN dizziness #30 tabs 09/27/23 12/26/24 Rx benzonatate 100 mg capsule 100 mg PO TID PRN cough #30 caps 02/21/24 12/26/24 Rx levothyroxine 125 mcg tablet 125 mcg PO DAILY #90 tabs 02/21/24 01/06/25 Rx nitroglycerin 0.4 mg sublingual 0.4 mg sublingual Q5M PRN chest 04/10/24 12/26/24 Rx tablet pain #25 tabs tramadol 50 mg tablet 50 mg PO Q6H PRN pain #60 tabs 08/06/24 12/26/24 Rx trazodone 50 mg tablet 75 mg (1.5 x 50 mg) PO HS #135 tabs 08/12/24 12/26/24 Rx omeprazole 20 mg capsule,delayed 20 mg PO DAILY #90 caps 08/15/24 12/26/24 Rx release fluticasone furoate 200 1 inh inhalation DAILY #30 ea 10/16/24 12/26/24 Rx mcg/actuation blister powder for inhalation (Arnuity Ellipta) meloxicam 15 mg tablet 15 mg PO DAILY #90 tabs 10/16/24 12/26/24 Rx ezetimibe 10 mg-simvastatin 40 mg 1 tablet PO QPM #90 tabs 01/06/25 Rx tablet Allergies Allergy/AdvReac Type Severity Reaction Status Date / Time Penicillins Allergy Unknown SWELLING Verified 01/06/25 08:48 AND ITCHING Sulfa (Sulfonamide Allergy Unknown Unknown Verified 01/06/25 08:48 Antibiotics) Vital Signs Vital Signs - 24 hr 01/06/25 08:49 Temperature 97.7 F Pulse Rate 56 L Respiratory Rate 18 Blood Pressure 140/68 Pulse Oximetry 100 Oxygen Delivery Room Air Exam Const: General: comfortable and no acute distress HENMT: Face/Nose/Sinus: Normal nares present Eyes: General: appearance normal, both eyes and all related structures Neck: Neck: no JVD Resp: Auscultation: clear to auscultation bilaterally Cardio: Rate: regular rate Rhythm: regular rhythm GI: Inspection: non-distended GI Palp: Yes Soft to palpation Skin: General skin exam: normal color Neuro: Speech: normal speech Extrem: General: normal to inspection Psych: Mental Status: mental status grossly normal Assessment and Plan Assessment and plan (1) Colon polyp: Code(s): K63.5 - Polyp of colon Status: Acute Assessment and Plan: colonoscopy (2) Family history of colon cancer in mother: Code(s): Z80.0 - Family history of malignant neoplasm of digestive organs Status: Acute
[2025-01-06 09:45] VITALS: BP 105/57; PULSE 60; RESP 13; O2SAT 98
[2025-01-06 09:55] VITALS: BP 99/55; PULSE 61; RESP 19; O2SAT 98
[2025-01-06 10:05] VITALS: BP 137/80; PULSE 72; RESP 21; O2SAT 98
== END 2025-01-06 10:19 | disposition home or self-care (01) ==
PROVIDERS: PCP Family Medicine; Referring Provider Family Medicine; Visit Provider Internal Medicine Gastroenterology
PROC: 0DJD8ZZ Inspection of Lower Intestinal Tract, Via Natural or Artificial Opening Endoscopic (ICD-10-PCS; CPT 45378; principal; 2025-01-06 09:30)
DX: Z12.11 Encounter for screening for malignant neoplasm of colon (principal); K57.30 Diverticulosis of large intestine without perforation or abscess without bleeding; K64.8 Other hemorrhoids; Z86.0100 Personal history of colon polyps, unspecified; Z80.0 Family history of malignant neoplasm of digestive organs
CPT/HCPCS: G0121; J2003; J2704; J7120

== ENCOUNTER 2025-02-11 10:10 | Outpatient (CLI) | payer MEDICARE, SELFPAY ==
[2025-02-11 10:23] LABS: Basophils Percent Auto 0.2 % (0.2-1.2); Eosinophils Absolute Auto 0.1 K/mm3 (0-0.3); Eosinophils Percent Auto 1.5 % (0-4.4); Hematocrit 42.3 % (37.0-47.0); Hemoglobin 13.5 g/dL (12.0-15.0); Immature Granulocyte Percent A 1.7 % (0-0.5); Lymphocytes Absolute Auto 1.54 K/mm3 (0.9-3.2); Lymphocytes Percent Auto 26.1 % (18.3-44.2); Mean Corpuscular HGB Conc 31.9 g/dl (32-36); Mean Corpuscular Volume 103.4 fl (80-100); Monocytes Absolute Auto 0.7 K/mm3 (0.1-0.6); Monocytes Percent Auto 12.1 % (2.6-8.5); Neutrophils Absolute Auto 3.4 K/mm3 (1.3-6.7); Neutrophils Percent Auto 58.4 % (45.5-73.1); Platelet Count Result 207 k/mm3 (150-375); Red Blood Count 4.09 M/mm3 (4.2-5.4); Red Cell Distribution Width 12.7 % (11.5-14.5); White Blood Count 5.9 K/mm3 (4.5-10.0)
[2025-02-11 10:28] LABS: Blood Urea Nitrogen 18 mg/dL (8-26); Carbon Dioxide 24 mmol/L (22-30); Chloride 104 mmol/L (98-109); Estimated Glomerular Filt Rate > 60; Glucose 155 mg/dL (70-105); Potassium 4.4 mmol/L (3.5-4.9); Sodium 138 mmol/L (138-146)
--- OUTSIDE RECORDS SUMMARY | 2025-02-11 11:29 | XMS_ITS | Clinical Summary ---
Author Organization [facility] [address] Address [address] [place] [address] Care Team Providers Care Microwave Supervisor Name Role Phone Mary Noriega MD Primary Care Provider [phone] Reggie Rudolph MD Unavailable [phone] Allergies Active Allergy Reactions Criticality Noted Date Comments Ampicillin Swelling,Rash Medium Metrizamide Urticaria Medium 03/12/2015 hives Penicillins Swelling Medium 12/07/2014 Sulfa Rash Medium 06/02/2024 Sulfasalazine Rash Medium 12/07/2014 Sulfisomidine Rash Medium 06/05/2016 Medications fexofenadine (EMANI) 180 mg tablet take 1 tablet by oral route every day 0 4 Active Lactobacillus acidophilus (PROBIOTIC) 10 billion cell capsule take 1 by Oral route once 0 0 4 Active cholecalciferol (VITAMIN D3) 2,000 unit tablet take 1 by Oral route 2 times every day 0 0 5 Active omeprazole (PriLOSEC) 20 mg capsule with evening meal 1 9 Active tamoxifen (NOLVADEX) 20 mg tablet Take 1 tablet (20 mg total) by mouth daily 1 Active zinc 50 mg tablet Take 50 mg by mouth daily Active ezetimibe-simva statin (VYTORIN) 10-40 mg per tabletIndicatio ns:Dyslipidemia TAKE 1 TABLET BY MOUTH EVERY DAY IN THE EVENING 90 tablet 1 3 Active levothyroxine (SYNTHROID) 125 mcg tablet Take 1 tablet (125 mcg total) by mouth statistical clerk advertising before breakfast 4 Active celecoxib (CeleBREX) 200 mg capsuleIndicati ons:Postoperati ve Acute Pain Take 1 capsule (200 mg total) by mouth 2 (two) times a day 84 capsule 4 Active senna-docusate (PERICOLACE) 8.6-50 mg Take 1 tablet by mouth 2 (two) times a day as needed for constipation 60 tablet 2 4 Active traZODone (DESYREL) 50 mg tablet Take 1 tablet (50 mg total) by mouth nightly Active UNABLE TO FIND Med Name: Balance of Nature Fruits and Veggies, 1 of each daily in the am. Active metoprolol tartrate (LOPRESSOR) 50 mg immediate release tabletIndicatio ns:BUCIO (dyspnea on exertion),Palpi tations TAKE 1 TABLET BY MOUTH TWICE A DAY 180 tablet 2 5 Active aspirin 81 mg enteric coated tabletIndicatio ns:prevention of thrombosis Take 1 tablet (81 mg total) by mouth daily 30 tablet 11 5 01/06/20 26 Active Active Problems Problem Noted Date Diagnosed Date Primary osteoarthritis of right hip 05/26/2024 History of COVID-19 12/01/2021 Hypothyroidism 04/11/2019 BUCIO (dyspnea on exertion) 03/20/2019 Coronary artery disease of n ative artery of [place] heart with stable angina pectoris 06/20/2018 Essential hypertension 06/20/2018 Hyperlipidemia LDL goal <70 06/20/2018 JAYSON (obstructive sleep apnea) 06/20/2018 Palpitations 06/20/2018 Gastroesophageal reflux disease without esophagi tis 06/20/2018 Abnormal cardiovascular stress test 01/10/2014 Overview (11/30/2016): Abnormal stress test Encounters Date Type Department Care Team Description 01/05/2025 9:15 AM CDT Office Visit [facility] Medical Group Cardiology [address] [place] [address] Carl Vick MD Coronary artery disease of [place] artery of [place] heart with stable angina pectoris (Primary Dx); Essential hypertension; Hyperlipidemia LDL goal <70; Palpitations; JAYSON (obstructive sleep apnea) 01/05/2025 Orders Only [facility] Medical Group Cardiology [address] [place] [address] Provider, MD Ignacio from Last 3 Months Surgical History Surgery [...] on file 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 Gender Identity Female 05/23/2024 12:52 PM CDT Sexual Orientation Not on file Obstetrics History Last Filed Vital Signs Vital Sign Reading Time Taken Comments Blood Pressure 118/80 01/05/2025 9:46 AM CDT Pulse 55 01/05/2025 9:20 AM CDT Temperature 36.6 C (97.8 F) 06/09/2024 2:00 PM CDT Respiratory Rate 18 08/05/2024 10:03 AM 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 Oxygen Saturation 98% 01/05/2025 9:20 AM CDT Inhaled Oxygen Concentration - - Weight 73.9 kg (163 lb) 01/05/2025 9:20 AM CDT Height 160 cm (5' 3) 01/05/2025 9:20 AM CDT Body Mass Index [...] 023, 05/13/2013 Medical Devices Implanted Type Area Knotter Hand Device Identifier Shelf Expiration Date Model / Serial / Lot Depuy [employer] Shell Acetabular Hip Porous 3 Hole Coated Emphasys 50mm Titanium [id number] - [id number] Implanted:Qty: 1 on 06/09/2024 by Reggie Rudolph MD at [facility] Right: Hip [employer] Inc [id number] 04/26/2034 [id number] / / [id number] Depuy [employer] Liner Acetabular Hip Standard Emphasys Aox 27e08so Polyethylene [id number] - [id number] Implanted:Qty: 1 on 06/09/2024 by Reggie Rudolph MD at [facility] Right: Hip [employer] [id number] 04/26/2029 [id number] / / [id number] Depuy [employer] Inc [place] 6.5mm 25mm Acetabular Cancellous Screw Bone Sterile 1217-- - [id number] Implanted:Qty: 1 on 06/09/2024 by Reggie Rudolph MD at [facility] Right: Hip [employer] Inc [id number] 01/24/2034 121--500 / / [id number] Depuy [employer] [place] 6.5mm 20mm Acetabular Cancellous Screw Bone Sterile 121-- - [id number] Implanted:Qty: 1 on 06/09/2024 by Reggie Rudolph MD at [facility] Right: Hip [employer] Inc [id number] 04/26/2033 1217--500 / / [id number] Depuy [employer] Inc Actis 99mm Collar Hip 2 08/09 High Offset Taper Stem Femoral [id number] - [id number] Implanted:Qty: 1 on 06/09/2024 by Reggie Rudolph MD at [facility] Right: Hip Depuy [employer] Inc [id number] 02/23/2034 [id number] / / [id number] Depuy [employer]ed[employer] Inc Articul/Sha 36mm Cementless Hip +5mm 08/09 Taper Head Femoral Latex Free [id number] - [id number] Implanted:Qty: 1 on 06/09/2024 by Reggie Rudolph MD at [facility] Right: Hip [employer] [id number] 12/24/2028 [id number] / / [id number] Procedures Procedure Name Priority Date/Time Associated Diagnosis Comments DIGITAL MAMMOGRAPHY Routine 05/13/2013 1 0:10 AM CDT from Last 3 Months or Most Recently Relevant to Health Maintenance Results * DIGITAL MAMMOGRAPHY (05/13/2013 10:10 AM CDT) Anatomical Region Laterality Modality Breast Mammography 05/13/2013 10:1 0 AM CDT Narrative 05/13/2013 10:58 PM CDT Screening Mamm Bi Acc#: [id number] DATE OF EXAM: May 13 2013 CLINICAL [...] Ignacio - 12/17/2016 Screening Mamm Bi Acc#: [id number] DATE OF EXAM: May 13 2013 CLINICAL [...] DR: MARY NORIEGA Attending DR: MARY NORIEGA us Historical Provider MD CHEN MAMMO PROCEDURES Pamela l Result from Last 3 Months or Most Recently Relevant to Health Maintenance Insurance AETNA MEDICARE T MEDICARE T MEDICARE Advance Directives For more information, please contact: [phone] * Full Code (Latest Code Status on File) Date Activated Date Inactivated Comments 06/09/2024 11:08 AM 06/09/2024 6:24 PM Care Teams Microwave Supervisor Relationship Specialty Start Date End Date Mary Noriega MD PCP - General 11/24/16 Reggie Ruodlph MD [address] [facility] [address] [place] [address] [place] [id number] Surgeon Orthopedic Surgery 06/09/24
--- OUTSIDE RECORDS SUMMARY | 2025-02-11 11:29 | XMS_ITS | Encounter Summary ---
Author Organization [facility] Address [address] [place] [address] Care Team Providers Care Iron Bender Name Role Phone Haley Fairbanks MD Primary Care Provider [phone] Encounter Details Date Type Department Care Team (Late st Contact Info) Description 02/10/2025 External Device Data STL ABSTRACTION Provider, Abstract NO ADDRESS ON FILE Social History Tobacco Use Types Packs/Day Years [...] often do you attend chur ch or yazidi services? 1 to 4 times per year 11/08/2020 Do you belong to any clubs o r organizations such as scientologist groups, unions, fraternal or athletic groups, or [...] on file Legal Sex Female 3:38 PM LOAN PROCESSOR Gender Identity Not on file Sexual Orientation Not on file documented as of this encounter Plan of Treatment Upcoming Encounters Date Type Department Care Team (Late st Contact Info) Description 08/07/2025 10:15 AM LOAN PROCESSOR Office Visit [facility] Oncology and Hematology - [place] [address] [place] [address] [place] [id number] Malik Devries MD [address] [place] [address] documented as of this encounter Visit Diagnoses Not on filedocumented in this encounter Care Teams Iron Bender Relationship Specialty Start Date End Date Haley Fairbanks MD [address] [place] [id number] PCP - General Family Practice 11/08/20 documented as of this encounter
--- OUTSIDE RECORDS SUMMARY | 2025-02-11 11:29 | XMS_ITS | Clinical Summary ---
Author Organization [facility] Address [facility] [facility] [place] [address] Care Team Providers Care Consultant Dietitian Name Role Phone Brannon Amador MD Unavailable [phone] Haley Fairbanks MD Primary Care Provider [phone] Vale Fonseca RN Unavailable Shy Wei RN Unavailable [phone] Source Comments [facility],non-owned Affiliates and Associated Physician Practices is amultiple site organization consisting of ambulatory clinics and hospital sitesin [place], [place], [place] and [place]. This disclosure is being madepursuant to the Care Everywhere program and may not contain all information available regarding this patient. Last updated 18.[facility] Allergies Active Allergy Reactions Criticality Noted Date [...] Name Comments Arthritis - Rheumatoid Brother 2 DE Brother 3 Arthritis Brother 4 Tumor Brother [...] 9:42 AM CDT Height 162.6 cm (5' 4.02) 03/15/2015 9:42 AM CD T Body Mass [...] age to complete this topic Insurance MEDICARE [facility] [place] [address] COMMERCIAL GENERIC COMMERCIAL GENERIC AETNA Advance Directives * Full Code (Latest Code Status on File) Date Activated Date Inactivated Comments 02/11/2015 4:59 PM 02/12/2015 1:29 PM * Full Code Date Activated Date Inactivated Comments 12/15/2014 12:10 PM 12/16/2014 3:16 PM Care Teams Consultant Dietitian Relationship Specialty Start Date End Date Haley Fairbanks MD [address] [place] [address] PCP - General Family Medicine 12/07/14 Brannon Amador MD Referring Physician Orthopedic Surgery 11/27/14 Vale Fonseca, RN Dredging Inspector 12/16/14 Shy Wei, COSMO Dredging Inspector 02/11/15
--- OUTSIDE RECORDS SUMMARY | 2025-02-11 11:29 | XMS_ITS | Clinical Summary ---
Author Organization [facility] Address [address] [place] [address] Care Team Providers Care Vehicle Window Tinter Name Role Phone Haley Fairbanks MD Primary Care Provider [phone] Allergies Active Allergy Reactions Criticality Noted Date [...] needed. Active fluticasone propionate (FLONASE) 50 mcg/spray [place], Suspension nasal inhaler 2 SPRAY NASAL DAILY [...] Capsule Take by mouth. Activ e Multivitamins-C f-Ttrq-Qfauvgnz (Multiple Vitamin, Womens) Tablet Take by mouth. [...] Encounters Date Type Department Care Team Description 02/11/2025 11:00 AM CDT Office Visit [facility] Oncology and Hematology [place] [address] [address] [place] [address] [address] Malik Devries MD Ductal carcinoma in situ (DCIS) of left breast (Primary Dx); Visit for screening mammogram 02/10/2025 External Device Data STL ABSTRACTION Provider, Abstract 01/20/2025 External Device Data STL ABSTRACTION Provider, Abstract 01/15/2025 External Device Data STL ABSTRACTION Provider, Abstract 01/14/2025 External Device Data STL ABSTRACTION Provider, Abstract 01/13/2025 External Device Data STL ABSTRACTION Provider, Abstract 11/12/2024 External Device Data STL ABSTRACTION Provider, [...] 11/08/2020 How often do you attend chur or hinduism services? 1 to 4 times per year 11/08/2020 Do you belong to any clubs o r organizations such as voodoo groups, unions, fraternal or athletic groups, or [...] on file Legal Sex Female 3:38 PM REPRODUCTION ARTIST Gender Identity Not on file Sexual Orientation Not on file Last Filed Vital Signs Vital Sign Reading Time Taken Comments Blood Pressure 128/81 02/11/2025 10:34 AM CDT Pulse 65 02/11/2025 10:34 AM CDT Temperature 36.9 C (98.4 F) 02/11/2025 10:34 AM CDT Respiratory Rate 15 02/11/2025 10:34 AM CDT Oxygen Saturation 97% 02/11/2025 10:34 AM CDT Inhaled Oxygen Concentration - - Weight 72.4 kg (159 lb 9.6 oz) 02/11/2025 10:34 AM CDT Height 161.3 cm (5' 3.5) 02/13/2022 10:50 AM CD T Body Mass Index 27.83 02/13/2022 10:50 AM CDT Plan of Treatment Upcoming Encounters Date Type Department Care Team (Late st Contact Info) Description 08/07/2025 10:15 AM REPRODUCTION ARTIST Office Visit [facility]cology and Hematology - [place] [address] [facility] [address] [place] [address] Malik Devries MD [address] [facility] [address] [place] [address] Health Maintenance Due Date Last Done Comments DTAP/TDAP/TD VACCINES (1 - Tdap) 1969 PNEUMOCOCCAL VACCINE 50+ YEA RS (1 of 2 - PCV) 1968 FIT-DNA Q 3 years 1994 FIT/FOBT Q 1 year 1994 Flex Sig/CT Colonography Q 5 years 1994 ZOSTER VACCINE (1 of 2) 1999 INFLUENZA VACCINE (#1) 2024 COVID-19 Vaccine ( season) 04/27/202403/2021, 12/22/2020 RSV VACCINE (60+ or ) (1 - 1-dose 75+ series) 2024 Medicare Advantage ([place]) Prev entative Visit/Annual Wellness Visit 08/27/2024 OSTEOPOROSIS SCREENING 03/29/2026 , 03/29/2021, 05/07/2018 COLORECTAL [...] SITES (03/29/2021) Anatomical Region Laterality Modality Other Malik Devries MD DIAGNOSTIC IMAGING ORDERABLES F inal Result from Last 3 Months or Most Recently Relevant to Health Maintenance [facility] Care Teams Vehicle Window Tinter Relationship Specialty Start Date End Date Haley Fairbanks MD [address] [place] [address] PCP - General Family Practice 11/08/20
--- OUTSIDE RECORDS SUMMARY | 2025-02-11 11:29 | XMS_ITS | Encounter Summary ---
Author Organization [facility] Address [address] [place] [address] Care Team Providers Care Com Writer Name Role Phone Haley Fairbanks MD Primary Care Provider [phone] Reason for Referral * Radiology Services (Routine) - Closed Specialty Diagnoses / Procedures Referred By Nubia t Referred To Contact Diagnoses Visit for screening mammogram Procedures MAMMO 3D DAVIN SCREEN UNI RT W OR WO CAD CHG SCREENING MAMMOGRAPHY BI 2-VIEW BREAST INC CAD CHG SCREENING DIGITAL BREAST TOMOSYNTHESIS BI Malik Devries MD [address] [place] [address] Phone: tel: fax: [place] [address] Referral ID Status Reason Start Date Expiration Date V isits Requested Visits Authorized [id number] Closed STL CTS 02/11/2025 03/14/2026 1 1 Encounter Details Date Type Department Care Team (Late st Contact Info) Description 02/11/2025 11:00 AM CDT Office Visit [facility] Oncology and Hematology [place] [address] [address] [place] [facility] [address] [place] [address] Malik Devries MD [address] [place] [address] Ductal carcinoma in situ (DCIS) of left breast (Primary Dx); Visit for screening mammogram Social History Tobacco Use Types Packs/Day Years [...] week 11/08/2020 How often do you attend [facility] or episcopalian services? 1 to 4 times per year 11/08/2020 Do you belong to any clubs o r organizations such as orthodoxy groups, unions, fraternal or athletic groups, or [...] on file Legal Sex Female 3:38 PM MUSIC PUBLICIST Gender Identity Not on file Sexual Orientation [...] 9.6 oz) 02/11/2025 10:34 AM CDT Height - - Body Mass Index 27.83 02/13/2022 10:50 AM CDT documented in this encounter Plan of Treatment Upcoming Encounters Date Type Department Care Team (Late st Contact Info) Description 08/07/2025 10:15 AM MUSIC PUBLICIST Office Visit [facility] Oncology and Hematology [facility] [address] [facility] [address] [place] [address] Malik Devries MD [address] [facility] [address] [place] [address] Scheduled Orders Name Type Priority Associated Diagnoses Orde r Schedule CBC WITH DIFFERENTIAL Lab Stat Ductal carcinoma in situ (DCIS) of left breast Expected: 08/13/2025, Expires: 02/11/2026 COMPREHENSIVE METABOLIC PANEL Lab Stat Ductal carcinoma in situ (DCIS) of left breast Expected: 08/13/2025, Expires: 02/11/2026 MAMMO 3D DAVIN SCREEN UNI RT W OR WO CAD Imaging Routine Visit for screening mammogram Expected: 06/13/2025, Expires: 08/13/2026 documented as of this encounter Visit Diagnoses Diagnosis Ductal carcinoma in situ (DCIS) of left breast- Primary Visit for screening mammogram Other screening mammogram documented in this encounter Care Teams Com Writer Relationship Specialty Start Date End Date Haley Fairbanks MD [address] [place] [address] PCP - General Family Practice 11/08/20 documented as of this encounter
--- OUTSIDE RECORDS SUMMARY | 2025-02-11 11:29 | XMS_ITS | Clinical Summary ---
Author Organization [facility] Address [address] [address] Phone Care Team Providers Care Amusement Park Entertainer Name Role Phone Haley Fairbanks MD Primary Care Provider [phone] Giuliabernard Phillip Paula DO Unavailable [phone] Allergies Active Allergy Reactions Criticality Noted [...] Health Maintenance Due Date Last Done Comments Hepatitis C Virus (HCV) Screening 1950 TdaP Immunization 1950 Cologuard 1994 Immunochemical Fecal Occult Blood 1994 Pneumococcal Immunization (50+ years) (2 of 2 - PPSV23) 06/11/2018 06/11/2017 Zoster Immunization (2 of 2) 08/27/2019 07/02/2019 SARS-COV-2 Immunization (3 - season) 2024 02/01/2021, 12/22/2020 Respiratory Syncytial Virus (RSV) Immunization (Adult) (1 - 1-dose 75+ series) 2024 Influenza Immunization (Season Ended) 2025 05/09/2020, 06/18/2019, 05/12/2018, Additional history exists Colonoscopy 05/25/2026 05/25/2016 Colorectal Cancer Screening 05/25/2026 Pneumococcal Immunization Combined Discontinued 06/11/2017 Hepatitis B Immunization Aged Out No longer eligible based on patient's age to complete this topic Human Papillomavirus (HPV) Immunization Aged Out No longer eligible based [...] Maintenance Insurance MEDICARE C AETNA Care Teams Amusement Park Entertainer Relationship Specialty Start Date End Date Haley Fairbanks MD [address] [place] [address] PCP - General Family Medicine 05/29/16 Phillip Nichols DO [address] [place] [address] Gastroenterology 05/29/16
--- OUTSIDE RECORDS SUMMARY | 2025-02-11 11:29 | XMS_ITS | Referral Summary ---
Author Organization [facility] [address] [place] [address] [address] [place] [address] Care Team Providers Care Ampoule Washing Machine Operator Name Role Phone Mary Noriega MD Primary Care Provider Reggie Rudolph MD Unavailable [phone] Encounters Date Type Department Care Team Description 01/05/2025 Orders Only [facility] Medical Group Cardiology [address] [facility] [address] [place] [address] ProviderIgnacio MD 01/05/2025 9:15 AM CDT Office Visit [facility] Medical [facility] Cardiology [address] [facility] [address] [place] [address] Carl Vick MD Coronary artery disease of [place] artery of [place] heart with stable angina pectoris (Primary Dx); Essential hypertension; Hyperlipidemia LDL goal <70; Palpitations; JAYSON (obstructive sleep apnea) from Last 3 Months Allergies Active Allergy [...] 1 tablet (125 mcg total) by mouth digital archivist before breakfast 4 Active celecoxib (CeleBREX) 200 [...] artery disease of n ative artery of [place] heart with stable angina pectoris 06/20/2018 Essential [...] on file Legal Sex Female 12:59 AM KNITTED GARMENT FINISHER Gender Identity Female 05/23/2024 12:52 PM CDT Sexual Orientation Not on file Last Filed Vital Signs Vital Sign Reading Time Taken Comments Blood Pressure 118/80 01/05/2025 9:46 AM CDT Pulse 55 01/05/2025 9:20 AM CDT Temperature 36.6 C (97.8 F) 06/09/2024 2:00 PM CDT Respiratory Rate 18 08/05/2024 10:03 AM KNITTED GARMENT FINISHER Oxygen Saturation 98% 01/05/2025 9:20 AM CDT Inhaled Oxygen Concentration - - Weight 73.9 kg (163 lb) 01/05/2025 9:20 AM CDT Height 160 cm (5' 3) 01/05/2025 9:20 AM CDT Body Mass Index 28.87 01/05/2025 9:20 AM CDT Plan of Treatment Not on file Medical Devices Implanted Type Area Clinical Social Worker Device Identifier Shelf Expiration Date Model / Serial / Lot Depuy [employer] Shell Acetabular Hip Porous 3 Hole Coated Emphasys 50mm Titanium [id number] - [id number] Implanted:Qty: 1 on 06/09/2024 by Reggie Rudolph MD at [facility] Right: Hip [employer] Inc [id number] 04/26/2034 [id number] / / [id number] Dep[employer] Liner Acetabular Hip Standard Emphasys Aox 70h16hh Polyethylene [id number] - [id number] Implanted:Qty: 1 on 06/09/2024 by Reggie Rudolph MD at [facility] Right: Hip [employer] [id number] 04/26/2029 [id number] / / [id number] Dep[employer] [place] 6.5mm 25mm Acetabular Cancellous Screw Bone Sterile 121-- - [id number] Implanted:Qty: 1 on 06/09/2024 by Reggie Rudolph MD at [facility] Right: Hip [employer] Inc [id number] 01/24/2034 1217--500 / / [id number] [employer] [place] 6.5mm 20mm Acetabular Cancellous Screw Bone Sterile 1217- - [id number] Implanted:Qty: 1 on 06/09/2024 by Reggie Rudolph MD at [facility] Right: Hip [employer] [id number] 04/26/2033 1217--500 / / [id number] [employer] Actis 99mm Collar Hip 2 08/09 High Offset Taper Stem Femoral [id number] - [id number] Implanted:Qty: 1 on 06/09/2024 by Reggie Rudolph MD at [facility] Right: Hip [employer] [id number] 02/23/2034 [id number] / / [id number] [employer] Articul/Sha 36mm Cementless Hip +5mm 08/09 Taper Head Femoral Latex Free [id number] - [id number] Implanted:Qty: 1 on 06/09/2024 by Reggie Rudolph MD at [facility] Right: Hip [employer] [id number] 12/24/2028 [id number] / / [id number] Procedures Procedure Name Priority Date/Time Associated Diagnosis Comments DIGITAL MAMMOGRAPHY Routine 05/13/2013 1 0:10 AM CDT from Last 3 Months or Most Recently Relevant to Health Maintenance Results * DIGITAL MAMMOGRAPHY (05/13/2013 10:10 AM CDT) Anatomical Region Laterality Modality Breast Mammography 05/13/2013 10:1 0 AM CDT Narrative 05/13/2013 10:58 PM CDT Screening Mamm Bi Acc#: [id number] DATE OF EXAM: May 13 2013 CLINICAL [...] 2013 10:58P Ordering DR: MARY NORIEGA Attending : MARY NORIEGA Procedure Note Provider, MD Ignacio - 12/17/2016 Screening Mamm Bi Acc#: [id number] DATE OF EXAM: May 13 2013 CLINICAL [...] Relevant to Health Maintenance Insurance AETNA MEDICARE AETNA MEDICARE Advance Directives For more information, please contact: [phone] * Full Code (Latest Code Status on File) Date Activated Date Inactivated Comments 06/09/2024 11:08 AM 06/09/2024 6:24 PM Care Teams Ampoule Washing Machine Operator Relationship Specialty Start Date End Date Mary Noriega MD PCP - General 11/24/16 Reggie Rudolph MD [address] [place] [address] [place] [address] Surgeon Orthopedic Surgery 06/09/24
--- OUTSIDE RECORDS SUMMARY | 2025-02-11 11:29 | XMS_ITS | Encounter Summary ---
Author Organization [facility] Address [address] [place] [address] Care Team Providers Care Scoreboard Operator Name Role Phone Haley Fairbanks MD Primary Care Provider [phone] Encounter Details Date Type Department Care Team (Late st Contact Info) Description 11/10/2020 Chart Note [facility] Radiation Therapy [address] [place] [address] [place] [address] [place] [address] Social History Tobacco Use Types [...] often do you attend chur ch or gnosticism services? 1 to 4 times per year 11/08/2020 Do you belong to any clubs o r organizations such as amish groups, unions, fraternal or athletic groups, or [...] on file Legal Sex Female 3:38 PM FILTER CHANGING TECHNICIAN Gender Identity Not on file Sexual Orientation [...] st Contact Info) Description 08/07/2025 10:15 AM FILTER CHANGING TECHNICIAN Office Visit [facility] Oncology and Hematology - [place] [address] [facility] [address] [place] [address] aMlik Devries MD [address] [facility] [address] [place] [address] documented as of this encounter Visit Diagnoses Not on filedocumented in this encounter Care Teams Scoreboard Operator Relationship Specialty Start Date End Date Haley Fairbanks MD [address] [place] [address] PCP - General Family Practice 11/08/20 documented as of this encounter
[2025-02-11 13:32] LABS: Alanine Aminotransferase 20 U/L (6-35); Albumin Level 4.5 g/dL (3.5-5.1); Alkaline Phosphatase 122 U/L (38-126); Anion Gap 11 mmol/L (4-12); Aspartate Amino Transferase 38 U/L (14-36); Bilirubin,Total 0.5 mg/dL (0.2-1.3); Blood Urea Nitrogen 17 mg/dL (7-17); Calcium 9.3 mg/dL (8.4-10.2); Carbon Dioxide 21 mmol/L (22-30); Chloride 106 mmol/L (98-107); Estimated Glomerular Filt Rate > 60; Glucose 148 mg/dL (65-110); Potassium 4.5 mmol/L (3.4-5.0); Sodium 138 mmol/L (137-145); Total Protein 7.3 g/dL (6.3-8.2)
== END 2025-02-11 10:11 | disposition home or self-care (01) ==
PROVIDERS: PCP Family Medicine; Visit Provider Internal Medicine Hematology & Oncology
DX: D05.12 Intraductal carcinoma in situ of left breast (principal)
CPT/HCPCS: 36415; 80047; 80053; 85025

== ENCOUNTER 2025-07-15 13:58 | Outpatient (CLI) | payer MEDICARE, SELFPAY ==
--- OUTSIDE RECORDS SUMMARY | 2025-07-14 09:30 | XMS_ITS | Encounter Summary ---
Author Organization [facility] Healthcare Address [address] [place] [address] Care Team Providers Care Telemarketing Sales Representative Name Role Phone Haley Fairbanks MD Primary Care Provider Reggie Rudolph MD Unavailable [phone] Reason for Referral * Cardiology (Routine) - Closed Specialty Diagnoses / Procedures Referred By Contac t Referred To Contact Diagnoses Palpitations Procedures MCT Mobile Cardiac Telemetry Event Monitor Carl Vick MD [address] [place] [address] Phone: tel: fax: [facility] Medical Group Cardiology [address] [place] [address] Phone: tel: fax: Referral ID Status Reason Start Date Expiration Date Visits Re quested Visits Authorized [id number] Closed 07/14/2025 08/13/2026 1 1 T ARM OPERATOR Reason for Visit * Reason Comments Hypertension 3 Hyperlipidemia Coronary Artery Disease Palpitations Sleep Apnea Encounter Details Date Type Department Care Team (Late st Contact Info) Description 07/14/2025 9:30 AM EIGHT ARM OPERATOR Office Visit [facility] Medical Group Cardiology [address] [place] [address] Carl Vick MD [address] [place] [address] Coronary artery disease of [place] artery of [place] heart with stable angina pectoris (Primary Dx); Essential hypertension; Hyperlipidemia LDL goal <70; Palpitations; Hypothyroidism, unspecified type Social History Tobacco Use Types Packs/Day Years [...] on file Legal Sex Female 12:59 AM EIGHT ARM OPERATOR Gender Identity Female 05/23/2024 12:52 PM CDT Sexual Orientation Not on file documented as of this encounter Last Filed Vital Signs Vital Sign Reading Time Taken Comments Blood Pressure 120/72 07/14/2025 9:11 AM EIGHT ARM OPERATOR Pulse 60 07/14/2025 9:11 AM EIGHT ARM OPERATOR Temperature - - Respiratory Rate - - Oxygen Saturation 98% 07/14/2025 9:11 AM EIGHT ARM OPERATOR Inhaled Oxygen Concentration - - Weight 74.4 kg (164 lb) 07/14/2025 9:11 AM EIGHT ARM OPERATOR Height 160 cm (5' 3) 07/14/2025 9:11 AM EIGHT ARM OPERATOR Body Mass Index 29.05 07/14/2025 9:11 AM EIGHT ARM OPERATOR documented in this encounter Functional Status * BP Location Answer Date of Assessment Author Left arm 07/14/2025 9:11 AM EIGHT ARM OPERATOR Chava Vick MD * BP Location Answer Date of Assessment Author Left arm 07/14/2025 9:11 AM EIGHT ARM OPERATOR Chava Vick MD documented as of this encounter Progress Notes * Carl Vick MD - 07/14/2025 9:30 AM CST Images from the original note were not included. [facility] DATE OF VISIT: 07/14/2025 CHIEF COMPLAINT Chief Complaint Patient presents with Hypertension 3 Hyperlipidemia Coronary Artery Disease Palpitations Sleep Apnea HPI Randa Chamberlain is a 75 y.o. female with a history and electrocardiographically [...] breath, palpitations. No edema Office visit with [employer] 01/31/2022: Today's appointment was made after she [...] has been taking omeprazole regularly. Follow-up note 07/14/2025: She denies any chest pain, shortness breath, syncope, presyncope, paroxysmal nocturnal dyspnea, orthopnea, edema or palpitations. She states that her Apple watch notify herof 10% atrial fibrillation burden on a weekly basis. MEDICAL HISTORY Left-sided breast cancer status post [...] Hypertension; MEDICATIONS Medication List Accurate as of July 14, 2025 9:25 AM. If you have any questions, ask your nurse or doctor. CONTINUE taking these medications aspirin 81 mg enteric coated tablet Take 1 tablet (81 mg total) by mouth daily celecoxib 200 [...] for environmental allergies. PHYSICAL EXAM Blood pressure 120/72, pulse 60, height 160 cm (5' 3), weight 74.4 kg (164 lb), SpO2 98%. Body mass index is 29.05 kg/m??. Physical Exam Vitals reviewed. HENT: Head: [...] for this visit: Coronary artery disease of [place] artery of [place] heart with stable angina pectoris ([facility]) (Primary) Asymptomatic Essential hypertension At goal Hyperlipidemia LDL goal <70 at goal LDL 53 JAYSON (obstructive sleep apnea) Compliant with CPAP. Feels better. Palpitations Quiescent but Apple watch notifying her of atrial fibrillation 10% of the time. Gastroesophageal reflux disease without esophagitis Hypothyroidism, unspecified type On replacement PLAN/RECOMMENDATIONS Her notifications on her Apple watch or likely second-degree to sinus rhythm with ectopy rather than true atrial fibrillation albeit uncertain. Therefore, we will have her wear a 14 day garage door opener installer. Obviously if atrial fibrillation is seen, we will need to put her on anticoagulation. Continue aspirin indefinitely for CAD Continue metoprolol for palpitations, PVCs, coronary disease and high blood pressure Continue ezetimibe and simvastatin for hyperlipidemia and coronary disease Continue levothyroxine for hypothyroidism Follow-up in 6 months or sooner as clinically indicated. Carl Vick MD, FACC T ARM OPERATOR * Maria Prather MA - 07/14/2025 9:30 AM CST Faxed to number provided. T ARM OPERATOR documented in this encounter Plan of Treatment Pending Results Name Type Priority Associated Diagnoses Date /Time MCT Mobile Cardiac Telemetry Event Monitor Cardiac Services Routine Palpitations 07/14/2025 11:41 AM EIGHT ARM OPERATOR Scheduled Orders Name Type Priority Associated Diagnoses Orde r Schedule MCT Mobile Cardiac Telemetry Event Monitor Cardiac Services Routine Palpitations Expected: 07/14/2025, Expires: 07/14/2026 documented as of this encounter Visit Diagnoses Diagnosis Coronary artery disease of [place] artery of [place] heart with stable angina pectoris- Primary Essential hypertension Unspecified essential hypertension Hyperlipidemia LDL goal <70 Other and unspecified hyperlipidemia Palpitations Hypothyroidism, unspecified type documented in this encounter Care Teams Telemarketing Sales Representative Relationship Specialty Start Date End Date Haley Fairbanks MD PCP - General 11/24/16 Reggie Rudolph MD [address] [facility] [address] [address] [place] [address] Surgeon Orthopedic Surgery 06/09/24 documented as of this encounter
--- OUTSIDE RECORDS SUMMARY | 2025-07-14 14:30 | XMS_ITS | Encounter Summary ---
Author Organization [facility] Healthcare Address [address] [place] [address] Care Team Providers Care Heel Washer Stringing Machine Operator Name Role Phone Haley Fairbanks MD Primary Care Provider [phone] Reggie Rudolph MD Unavailable [phone] Reason for Visit * Cardiology (Routine) - Closed Specialty Diagnoses / Procedures Referred By Contac t Referred To Contact Diagnoses Palpitations Procedures MCT Mobile Cardiac Telemetry Event Monitor Carl Vick MD [address] [facility] [address] [place] [address] Phone: tel: fax: [facility] Medical [facility] Cardiology [address] [facility] [address] [place] [address] Phone: tel: fax: Referral ID Status Reason Start Date Expiration Date Visits Re quested Visits Authorized [id number] Closed 07/14/2025 08/13/2026 1 1 Encounter Details Date Type Department Care Team (Late st Contact Info) Description 07/14/2025 2:30 PM ANESTHESIOLOGIST ASSISTANT Ancillary Procedure [facility] Cardiology [address] [place] [address] Palpitations Social History Tobacco Use Types Packs/Day Years [...] on file Legal Sex Female 12:59 AM ANESTHESIOLOGIST ASSISTANT Gender Identity Female 05/23/2024 12:52 PM CDT Sexual Orientation Not on file documented as of this encounter Functional Status * BP Location Answer Date of Assessment Author Left arm 07/14/2025 9:11 AM Chava Shah MD * BP Location Answer Date of Assessment Author Left arm 07/14/2025 9:11 AM Chava Shah MD documented as of this encounter Plan of Treatment Pending Results Name Type Priority Associated Diagnoses Date /Time MCT Mobile Cardiac Telemetry Event Monitor Cardiac Services Routine Palpitations 07/14/2025 11:41 AM ANESTHESIOLOGIST ASSISTANT documented as of this encounter Visit Diagnoses Diagnosis Palpitations documented in this encounter Care Teams Heel Washer Stringing Machine Operator Relationship Specialty Start Date End Date Haley Fairbanks MD PCP - General 11/24/16 Reggie Rudolph MD [address] [place] [address] [address], [place] [address] Surgeon Orthopedic Surgery 06/09/24 documented as of this encounter
--- NOTE | ~2025-07-15 | MM_ITS ---
EXAMINATION: MM screening janette RT w franca INDICATION: Asymptomatic, referred for screening mammogram. History of Left mastectomy. COMPARISON: 05/27/2024 through 05/03/2021 TECHNIQUE: Full field digital CC, MLO views were obtained of RIGHT breast with computer-aided detection to assist in interpretation of the study. FINDINGS: There are scattered areas of fibroglandular density. No focal dominant mass, architectural distortion, or suspicious microcalcifications are identified. There are no features to suggest malignancy. IMPRESSION: 1. No mammographic evidence of malignancy. 2. Recommend routine screening mammography in one year. BI-RADS Category 1: Negative Reviewed, dictated and finalized at location B. COMPLIANCE ANALYST
--- OUTSIDE RECORDS SUMMARY | 2025-07-15 21:11 | XMS_ITS | Clinical Summary ---
Author Organization [facility] Address [address] [place] [address] Care Team Providers Care Regional Director Of Admissions Name Role Phone Haley Fairbanks MD Primary Care Provider [phone] Allergies Active Allergy Reactions Criticality Noted Date [...] needed. Active fluticasone propionate (FLONASE) 50 mcg/spray [place], Suspension nasal inhaler 2 SPRAY NASAL DAILY [...] Capsule Take by mouth. Activ e Multivitamins-C z-Jiji-Oafnimbh (Multiple Vitamin, Womens) Tablet Take by mouth. [...] Encounters Date Type Department Care Team Description 06/17/2025 External Device Data STL ABSTRACTION Provider, Abstract 06/16/2025 External Device Data STL ABSTRACTION Provider, Abstract 05/19/2025 External Device Data STL ABSTRACTION Provider, Abstract 05/12/2025 External Device Data STL ABSTRACTION Provider, Abstract [...] How often do you attend chur or yazidism services? 1 to 4 times per year 11/08/2020 Do you belong to any clubs o r organizations such as pentecostal groups, unions, fraternal or athletic groups, or [...] on file Legal Sex Female 3:38 PM RESTAURANT SHIFT SUPERVISOR Gender Identity Not on file Sexual Orientation [...] st Contact Info) Description 08/07/2025 10:15 AM RESTAURANT SHIFT SUPERVISOR Office Visit [facility] Oncology and Hematology - [place] [address] [facility] [address] [place] [address] Malik Devries MD [address] [facility] [address] [place] [address] Health Maintenance Due Date Last Done Comments DTAP/TDAP/TD VACCINES (1 - Tdap) 1968 PNEUMOCOCCAL VACCINE 50+ YEA RS (1 of 2 - PCV) 1968 ZOSTER VACCINE (1 of 2) 1999 RSV VACCINE (60+ or ) (1 - 1-dose 75+ series) 2024 INFLUENZA VACCINE (#1) 2025 COVID-19 Vaccine (3 - 2024-2 6 season) 2025 02/01/2021, 12/22/2020 OSTEOPOROSIS SCREENING 03/29/2026 , 03/29/2021, 05/07/2018 COLORECTAL SCREENING Discontinued 05/25/2016, 05/25/20 16 Colorectal Cancer Screening Discontinued FIT-DNA Q 3 years Discontinued FIT/FOBT Q 1 year Discontinued Flex Sig/CT Colonography Q 5 years Discontinued Procedures Procedure Name Priority Date/Time Associated Diagnosis [...] Most Recently Relevant to Health Maintenance Insurance AENA O MCR [facility] Address: [facility] [id number] [place] [address] Care Teams Regional Director Of Admissions Relationship Specialty Start Date End Date Haley Fairbanks MD [address] [place] [address] PCP - General Family Practice 11/08/20
--- OUTSIDE RECORDS SUMMARY | 2025-07-15 21:11 | XMS_ITS | Clinical Summary ---
Author Organization [facility] Address [address] [address] Phone Care Team Providers Care Diamond Saw Operator Name Role Phone Haley Fairbanks MD Primary Care Provider [phone] Giuliabernard Phillip Paula DO Unavailable [phone] Allergies Active Allergy Reactions Criticality Noted [...] Lnp-s, Pf, 30 Mcg/0.3 Ml Dose (P fizer) 02/01/2021,12/22/2020 Family History Medical History Relation Name [...] Virus (HCV) Screening 1950 TdaP Immunization 1950 Varicella Immunization (1 of 2 - 13+ 2-dose series) 1962 Medicare Initial AWV [id number] 04/27/2015 Pneumococcal Immunization (50+ years) (2 of 2 - PCV20 or PCV21) 06/11/2018 06/11/2017 Zoster Immunization (2 of 2) 08/27/2019 07/02/2019 Respiratory Syncytial Virus (RSV) Immunization (Adult) (1 - 1-dose 75+ series) 2024 Influenza Immunization (#1) 04/27/202504/27, 06/18/2019, 05/12/2018, Additional history exists SARS-COV-2 Immunization ( season) 2025 02/01/2021, 12/22/2020 Colonoscopy Discontinued 05/25/2016 Colorectal Cancer Screening Discontinued Pneumococcal Immunization Combined Discontinued 06/11/2017 Cologuard Discontinued Hepatitis B Immunization Aged Out No longer eligible based on patient's age to complete this topic Human Papillomavirus (HPV) Immunization Aged Out No longer eligible based on patient's age to complete this topic Immunochemical Fecal Occult Blood Discontinued Meningococcal Immunization (ACWY) Aged Out No longer [...] Maintenance Insurance MEDICARE C AETNA Care Teams Diamond Saw Operator Relationship Specialty Start Date End Date Haley Fairbanks MD [address] [place] [address] PCP - General Family Medicine 05/29/16 Phillip Nichols DO [address] [place] [address] Gastroenterology 05/29/16
--- OUTSIDE RECORDS SUMMARY | 2025-07-15 21:12 | XMS_ITS | Clinical Summary ---
Author Organization [facility] [address] Address [address] [place] [address] Care Team Providers Care Pecan Sheller Name Role Phone Mary Fairbanks MD Primary Care Provider [phone] Reggie Rudolph MD Unavailable [phone] Allergies Active Allergy Reactions Criticality Noted Date [...] 1 tablet (125 mcg total) by mouth wireless operator before breakfast 4 Active celecoxib (CeleBREX) 200 [...] of each daily in the am. Active aspirin 81 mg enteric coated tabletIndicatio ns:prevention of thrombosis Take 1 tablet (81 mg total) by mouth daily 30 tablet 11 5 01/06/20 26 Active metoprolol tartrate (LOPRESSOR) 50 mg immediate release tabletIndicatio ns:BUCIO (dyspnea on exertion),Palpi tations TAKE 1 TABLET BY MOUTH TWICE A DAY 180 tablet 2 5 Active Active Problems Problem Noted Date Diagnosed Date Primary osteoarthritis of right hip 05/26/2024 History of COVID-19 12/01/2021 Hypothyroidism 04/11/2019 BUCIO (dyspnea on exertion) 03/20/2019 Coronary artery disease of [place] artery of [place] heart with stable angina pectoris 06/20/2018 Essential hypertension 06/20/2018 Hyperlipidemia LDL goal <70 06/20/2018 JAYSON (obstructive sleep apnea) 06/20/2018 Palpitations 06/20/2018 Gastroesophageal reflux disease without esophagi tis 06/20/2018 Abnormal cardiovascular stress test 01/10/2014 Overview (11/30/2016): Abnormal stress test Encounters Date Type Department Care Team Description 07/14/2025 2:30 PM TRAFFIC CONTROL OFFICER Ancillary Procedure [facility] Medical Group Cardiology [address] [place] [address] Palpitations 07/14/2025 9:30 AM TRAFFIC CONTROL OFFICER Office Visit [facility] Medical Group Cardiology [address] [place] [address] Carl Vick MD Coronary artery disease of [place] artery of [place] heart with stable angina pectoris (Primary Dx); Essential hypertension; Hyperlipidemia LDL goal <70; Palpitations; Hypothyroidism, unspecified type from Last 3 Months Surgical History Surgery [...] Comments Coronary artery disease Brother 3 Catalina anderson Artery Bypass Graft; Brain cancer Brother 4 [...] on file Legal Sex Female 12:59 AM TRAFFIC CONTROL OFFICER Gender Identity Female 05/23/2024 12:52 PM CDT Sexual Orientation Not on file Last Filed Vital Signs Vital Sign Reading Time Taken Comments Blood Pressure 120/72 07/14/2025 9:11 AM TRAFFIC CONTROL OFFICER Pulse 60 07/14/2025 9:11 AM TRAFFIC CONTROL OFFICER Temperature 36.6 C (97.8 F) 06/09/2024 2:00 PM CDT Respiratory Rate 18 08/05/2024 10:03 AM TRAFFIC CONTROL OFFICER Oxygen Saturation 98% 07/14/2025 9:11 AM TRAFFIC CONTROL OFFICER Inhaled Oxygen Concentration - - Weight 74.4 kg (164 lb) 07/14/2025 9:11 AM TRAFFIC CONTROL OFFICER Height 160 cm (5' 3) 07/14/2025 9:11 AM TRAFFIC CONTROL OFFICER Body Mass Index 29.05 07/14/2025 9:11 AM TRAFFIC CONTROL OFFICER Plan of Treatment Health Maintenance Due Date Last Done Comments Depression Screening 1950 Hepatitis C Screening 1950 Hepatitis B Screening 1967 Well Visit 65+ 2014 Zoster Vaccine (2 of 2) 08/27/2019 07/02/2019 Covid-19 Vaccine (3 - Pfizer risk series) 03/01/2021 02/01/2021, 12/22/2020 Osteoporosis Screening-Bone Density Scan 03/29/2023 03/29/2021, 03/29/2021 Fall Risk Assessment 05/26/2025 05/26/2024 DTaP/Tdap/Td Vaccine (3 - Td or Tdap) 07/23/2032 07/23/2022, 07/22/2022 Pneumococcal vaccine 65+ Completed 01/25/2018, 05/27 Breast Cancer Screening-Mammogram Discontinued 023, 05/13/2013 Influenza Vaccine Completed 06/24/2025, , 06/18/2019, Additional history exists Medical Devices Implanted Type Area Terminal Operations Supervisor Device Identifier Shelf Expiration Date Model / Serial / Lot [employer] Shell Acetabular Hip Porous 3 Hole Coated Emphasys 50mm Titanium [id number] - [id number] Implanted:Qty: 1 on 06/09/2024 by Reggie Rudolph MD at [facility] Right: Hip [employer] [id number] 04/26/2034 [id number] / / [id number] [employer] Liner Acetabular Hip Standard Emphasys Aox 76t06ct Polyethylene [id number] - [id number] Implanted:Qty: 1 on 06/09/2024 by Reggie Rudolph MD at [facility] Right: Hip [employer] [id number] 04/26/2029 [id number] / / [id number] [employer] [place] 6.5mm 25mm Acetabular Cancellous Screw Bone Sterile 1217-- - [id number] Implanted:Qty: 1 on 06/09/2024 by Reggie Rudolph MD at [facility] Right: Hip [employer] [id number] 01/24/2034 121--500 / / [id number] [employer] [place] 6.5mm 20mm Acetabular Cancellous Screw Bone Sterile 1217-- - [id number] Implanted:Qty: 1 on 06/09/2024 by Reggie Rudolph MD at [facility] Right: Hip [employer] [id number] 04/26/2033 1217--500 / / [id number] [employer] Actis 99mm Collar Hip 2 08/09 High Offset Taper Stem Femoral [id number] - [id number] Implanted:Qty: 1 on 06/09/2024 by Reggie Rudolph MD at [facility] Right: Hip [employer] [id number] 02/23/2034 [id number] / / [id number] [employer] Articul/Sha 36mm Cementless Hip +5mm 08/09 Taper Head Femoral Latex Free [id number] - [id number] Implanted:Qty: 1 on 06/09/2024 by Reggie Rudolph MD at [facility] Right: Hip [employer] [id number] 12/24/2028 [id number] / / [id number] Procedures Procedure Name Priority Date/Time Associated Diagnosis Comments DIGITAL MAMMOGRAPHY Routine 05/13/2013 1 0:10 AM CDT from Last 3 Months or Most Recently Relevant to Health Maintenance Results * DIGITAL MAMMOGRAPHY (05/13/2013 10:10 AM CDT) Anatomical Region Laterality Modality Breast Mammography 05/13/2013 10:1 0 AM CDT Narrative 05/13/2013 10:58 PM CDT Screening Mamm Bi Acc#: [id number] DATE OF EXAM: May 13 2013 CLINICAL [...] on: May 13 2013 12:04P Transcribed by: kelly On: May 13 2013 12:04P Approved Electronically by: ROGERIO SPARKS M.D. on: May 13 2013 10:58P Ordering DR: MARY FAIRBANKS Attending DR: MARY FAIRBANKS Procedure Note Provider, MD Ignacio - 12/17/2016 Screening Mamm Bi Acc#: [id number] DATE OF EXAM: May 13 2013 CLINICAL [...] on: May 13 201310:58P Ordering DR: MARY FAIRBANKS Attending DR: MARY FAIRBANKS Historical Provider MD CHEN MAMMO PROCEDURES Pamela l Result from Last 3 Months or Most Recently Relevant to Health Maintenance Insurance T MEDICARE AET MEDICARE AET MEDICARE Advance Directives For more information, please contact: [phone] * Full Code (Latest Code Status on File) Date Activated Date Inactivated Comments 06/09/2024 11:08 AM 06/09/2024 6:24 PM Care Teams Pecan Sheller Relationship Specialty Start Date End Date Mary Fairbanks MD PCP - General 11/24/16 Reggie Rudolph MD [address] [facility] [address] [place] [address] Surgeon Orthopedic Surgery 06/09/24
--- OUTSIDE RECORDS SUMMARY | 2025-07-15 21:12 | XMS_ITS | Encounter Summary ---
Author Organization [facility] Address [address] [place] [address] Care Team Providers Care Logging Worker Name Role Phone Haley Fairbanks MD Primary Care Provider [phone] Encounter Details Date Type Department Care Team (Late st Contact Info) Description 11/10/2020 Chart Note [facility] Radiation Therapy [address] [place] [address] [place] [address] [place] [address] Social History Tobacco Use Types [...] often do you attend chur ch or hinduism services? 1 to 4 times per year 11/08/2020 Do you belong to any clubs o r organizations such as hoahaoism groups, unions, fraternal or athletic groups, or [...] on file Legal Sex Female 3:38 PM CLEANER GREASER Gender Identity Not on file Sexual Orientation [...] st Contact Info) Description 08/07/2025 10:15 AM CLEANER GREASER Office Visit [facility] Oncology and Hematology - [place] [address] [facility] [address] [place] [address] Malik Devreis MD [address] [facility] [address] [place] [address] documented as of this encounter Visit Diagnoses Not on filedocumented in this encounter Care Teams Logging Worker Relationship Specialty Start Date End Date Haley Fairbanks MD [address] [place] [address] PCP - General Family Practice 11/08/20 documented as of this encounter
--- OUTSIDE RECORDS SUMMARY | 2025-07-15 21:13 | XMS_ITS | Clinical Summary ---
Author Organization [facility] Address [facility] [facility] [place] [address] Care Team Providers Care Payroll Specialist Name Role Phone Brannon Amador MD Unavailable [phone] Haley Fairbanks MD Primary Care Provider [phone] Vale Fonseca RN Unavailable Shy Wei RN Unavailable [phone] Source Comments [facility],non-owned Affiliates and Associated Physician Practices is amultiple site organization consisting of ambulatory clinics and hospital sitesin [place], [place], [place] and [place]. This disclosure is being madepursuant to the Care Everywhere program and may not contain all information available regarding this patient. Last updated 18.[facility] Allergies Active Allergy Reactions Criticality Noted [...] Name Comments Arthritis - Rheumatoid Brother 2 UT Brother 3 Arthritis Brother 4 Tumor Brother [...] Last Done Comments BONE DENSITY TESTING 1950 MEDICARE AWV 12 MONTHS 1950 HEPATITIS C SCREENING 04/24/1967 DTAP/TDAP/TD VACCINES (1 - Tdap) 1968 PNEUMOCOCCAL VACCINE 50+ (1 of 1 - PCV) 1999 ZOSTER VACCINE (1 of 2) 1999 Respiratory Syncytial Virus (RSV) Vaccine Pt: or over 60 yrs (1 - 1-dose 75+ series) 2024 DEPRESSION SCREENING 08/27/2024 COVID-19 VACCINE ( - 2024-2 6 season) 2025 INFLUENZA VACCINE (#1) 2025 HEPATITIS B VACCINE Aged Out No [...] age to complete this topic Insurance [facility] COMM[facility] GENER[facility] AET[employer] Advance Directives * Full Code (Latest Code Status on File) Date Activated Date Inactivated Comments 02/11/2015 4:59 PM 02/12/2015 1:29 PM * Full Code Date Activated Date Inactivated Comments 12/15/2014 12:10 PM 12/16/2014 3:16 PM Care Teams Payroll Specialist Relationship Specialty Start Date End Date Haley Fairbanks MD [address] [place] [address] PCP - General Family Medicine 12/07/14 Brannon Amador MD Referring Physician Orthopedic Surgery 11/27/14 Vale Fonseca, COSMO Account Manager Trainee 12/16/14 Shy Wei RN Account Manager Trainee 02/11/15
== END 2025-07-15 13:59 | disposition home or self-care (01) ==
LOC: ANHFOHIMG 14:01
PROVIDERS: PCP Family Medicine; Visit Provider Internal Medicine Hematology & Oncology
DX: Z12.31 Encounter for screening mammogram for malignant neoplasm of breast (principal)
CPT/HCPCS: 77063; 77067